=== PATIENT | female | born 1970 | race Caucasian/White ===

== ENCOUNTER 2024-03-24 13:07 | Outpatient (AMB) | payer MEDICARE, MEDICAID, SELFPAY ==
--- NOTE | 2024-03-24 13:13 | HO.SPINEOV ---
Intake Visit Reasons: Back pain Intake Note: Ms. Abelino Ozuna is here today c/o back pain that radiates to the right buttock. Hand Spring Former Required: Yes Hand Spring Former Name: Tablet Allergies oxycodone Allergy (Severe, Verified 04/01/24 13:20) Anaphylaxis Penicillins Adverse Reaction (Severe, Verified 04/01/24 13:20) rash Assessment & Plan Assessment & Plan (1) SI (sacroiliac) joint dysfunction: Code(s): M53.3 - Sacrococcygeal disorders, not elsewhere classified Category: Medical Plan Coreen is a pleasant 53 y/o female who is self referred to our practice after having an MRI of the lumbar spine completed at [facility]. She reports that she has low back pain with shooting pains into her bilateral lower extremities. She reports that her right side is much worse than her left. When describing her pain she states that originates somewhere near her low back shoots over her right posterior buttocks into her right groin and down the back side of right thigh. She describes a similar pain on the left side but to a lesser extent. She denies any numbness/tingling/burning/weakness associated with the pain. She reports this has been ongoing for the last 10 years and has not been able to find a solution for it. She is now to the point where she is in nearly constant pain. She takes [id number]-jgl-[id number] medications and gabapentin to help alleviate her pain. She has been to physical therapy multiple times in the past and found that it only exacerbates her pain. She states that her pain is worse with rising from a seated position or getting up out of a car. She has history of multiple childbirths but they were all C-sections. 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 Social hx: Patient does not smoke, reports no substance use. Medications: Cetirizine, Jardiance, Lantus, Levothyroxine, Lisinopril, rsouvastatin, Welbutrin, buspar, Klonopin, lidocaine patches, Ambien, metformin, Ozempic, Symbicort, aspirin, lidocaine, meclizine, sucralfate, gabapentin, Ativan. Allergies: NKDA Physical exam: The patient has 5/5 strength in her upper and lower extremities, although does elicit pain to full strength testing with right-sided iliopsoas engagement. She walks with a somewhat antalgic gait favoring her left side. She rises from a seated position with the assistance of a chair. She declines any sensational changes. Her reflexes are absent in the bilateral patella. 1+ hypoactive and bilateral Achilles. 2+ intact elsewhere. (+) right-sided Yusuf finger test, (+) right-sided Marilyn's. (-) Bilateral straight leg raise, (-) clonus, (-) Peguero's. Imaging review: MRI of the lumbar spine completed at [facility] is generally unremarkable. There is some facet arthropathy at L4-5, but there is no significant central canal or foraminal stenosis noted throughout the lumbar spine. The disc heights are well maintained aside from some very minimal posterior disc bulging noted at L4-5 and L5-S1. Impression: Coreen is a pleasant 53-year-old female comes in today with a chief complaint of low back pain and shooting pains into her bilateral lower extremities, right side worse than left. She states the pain shoots from her posterior buttocks area into her groin and posterior thigh. Her symptoms are most consistent with a right-sided SI joint pathology. I would like her evaluated for right-sided SI joint diagnostic injections. If these provide good relief we can identify this as the primary pain generator and consider a surgical intervention to help solve her problem. If we follow up with her after the diagnostic SI joint injection and she was not provided relief from this for any period of time, then I may consider sending her for an EMG of her lower extremities to rule out peripheral neuropathy, and may refer her to our colleagues in Orthopedics to ensure she does not have a issue with her hips. Thank you for allowing us to care for your patient. The total time spent with this visit with this patient was 45 minutes reviewing history, physical exam, MRI imaging review, and implementation of treatment plan or further diagnostic testing. Jose Negro MD,PhD [facility] Orders: Referrals Pain Management Referral M53.3 - Sacrococcygeal disorders, not elsewhere classified Coding Level of Care Code New Pt Level 4 (70866) Diagnoses SI (sacroiliac) joint dysfunction M53.3
== END 2024-03-24 13:59 | disposition home or self-care (01) ==
PROVIDERS: PCP Physician Assistant; Visit Provider Physician Assistant
DX: M53.3 Sacrococcygeal disorders, not elsewhere classified (principal)
CPT/HCPCS: 99204

== ENCOUNTER → 2024-03-24 13:07 | Outpatient (BNVA) | payer MEDICARE, MEDICAID, SELFPAY | PROVIDERS: PCP Physician Assistant; Visit Provider Physician Assistant | DX: M53.3 Sacrococcygeal disorders, not elsewhere classified (principal) | CPT/HCPCS: 99202 ==

== ENCOUNTER 2024-04-01 13:13 | Outpatient (REF) | payer MEDICARE, MEDICAID, SELFPAY ==
--- NOTE | ~2024-04-01 | XR_ITS ---
EXAMINATION: XR BILATERAL HIPS WITH AP PELVIS CLINICAL INFORMATION: Sacrococcygeal disorders not elsewhere classified. COMPARISON: None available. TECHNIQUE: AP view of the pelvis as well as 2 views of each hip. FINDINGS: Degenerative changes in the imaged lower lumbar spine. Moderate degenerative changes in the bilateral sacroiliac joints. [id number] degenerative changes in bilateral hips with joint space narrowing and lateral acetabular hypertrophic change. Sclerotic focus overlying the right humeral head may represent a bony lesion such as a bone island versus less likely soft tissue calcification. XR/XR hip BI w PEL1V IMPRESSION: 1. [id number]-[id number] degenerative changes in bilateral hips. 2. Moderate degenerative changes in the bilateral sacroiliac joints. 3. Degenerative changes in the imaged lower lumbar spine.
== END 2024-04-01 13:14 | disposition home or self-care (01) ==
LOC: HO.XRAY 13:13
PROVIDERS: PCP Physician Assistant; Visit Provider Nurse Practitioner Family
DX: M53.3 Sacrococcygeal disorders, not elsewhere classified (principal); M25.551 Pain in right hip; M46.1 Sacroiliitis, not elsewhere classified; M47.817 Spondylosis without myelopathy or radiculopathy, lumbosacral region; M51.36 Other intervertebral disc degeneration, lumbar region
CPT/HCPCS: 73521; 99202

== ENCOUNTER 2024-04-01 13:13 | Outpatient (AMB) | payer MEDICARE, MEDICAID, SELFPAY ==
--- NOTE | 2024-04-01 13:17 | A.OFFVIS_ITS ---
Vital Signs 04/01/24 13:19 Height 5 ft 7 in Weight 207 lb BMI 32.4 BP 123/59 L Blood Pressure Location Rt brachial Position Sitting Respiration 16 Pulse 83 Pulse Source Pulse Oximeter Pulse Oximetry (%) 96 Oxygen Delivery Method Room Air Intake Visit Reasons: Sacrococcygeal disorders, not elsewhere classified Allergies oxycodone Allergy (Severe, Verified 04/01/24 13:20) Anaphylaxis Penicillins Adverse Reaction (Severe, Verified 04/01/24 13:20) rash Medication List - Last Reconciled 04/01/24 by Regina Dhillon LPN albuterol sulfate 90 mcg/actuation (Ventolin HFA) 2 puffs inhalation Q4-6H PRN buspirone 10 mg PO BID cetirizine 10 mg PO DAILY clonazepam 1 mg PO BEDTIME PRN empagliflozin (Jardiance) 10 mg PO DAILY estradiol 1 patch transdermal QWEEK famotidine 40 mg PO DAILY ferrous sulfate 325 mg PO QAM fluticasone furoate 100 mcg/actuation (Arnuity Ellipta) 1 inh inhalation DAILY gabapentin 100 mg PO TID insulin glargine (Lantus Solostar U-100 Insulin) 10 units subcut QPM insulin glargine-yfgn (Semglee (insulin glargine-yfgn) Pen) 10 units subcut DAILY levothyroxine 125 mcg PO DAILY lidocaine 5% 1 patch topical DAILY lisinopril 40 mg PO DAILY lorazepam 1 mg PO BID meclizine 25 mg PO BID PRN metformin 1,000 mg PO BID nabumetone (Relafen DS) 500 mg PO DAILY naltrexone 25 mg PO DAILY pantoprazole 40 mg PO DAILY rosuvastatin 40 mg PO DAILY semaglutide (Ozempic) mg subcut zolpidem 10 mg PO BEDTIME PRN HPI Comments Details: Patient is a 53 years old female presents today for low back pain with bilateral radiculopathy. She was referred to our office by [facility] for diagnostic right sacroiliac joint injection. Denies any recent trauma, injury or falls. Back pain is axial and also extends to sacral and buttocks areas and into her groin and posterior thighs, worse on the right. She also experiences significant right groin pain with internal and external hip rotations and weight bearing. She ambulates with antalgic gait with limping, favoring left side. Pain is worse with prolonged sitting, driving, changing positions from sitting to standing, walking, climbing stairs and most movements. She also reports moderate pain with lumbar extension and axial rotations. Patient utilizes cane with ambulation. She completed multiple courses of physical therapy, has been taking OTC medications, gabapentin, lidocaine patches with continued symptoms. Reports PT exacerbated her pain symptoms. Pain has been present for over 10 years and has been resistant to conservative treatments. Pain affects her daily activities and functioning, mobility, sleep, mood and quality of life. She completed lumbar spine MRI report at [facility] and had Neurosurgical evaluation by [facility] with no surgical recommendations at this time. Patient is interested to undergo bilateral diagnostic sacroiliac joint injections as next steps. Denies any fever, chills, abdominal pain, chest pain, headache, dizziness, numbness or tingling, weakness, foot drop, bladder or bowel dysfunction or saddle anesthesia. [facility] Medical History (Updated 04/01/24 @ 14:14 by WINSTON Wood) GERD (gastroesophageal reflux disease) Fibromyalgia Hypertension Asthma T2DM (type 2 diabetes mellitus) Uterine fibroid Hypothyroidism JUAREZ (obstructive sleep apnea) Lipoma of back Diverticulitis PTSD (post-traumatic stress disorder) Review of Systems Const All systems reviewed & are unremarkable except as noted in HPI and below Physical Exam Vital Signs: Last Vital Signs Pulse 83 04/01/24 13:19 Resp 16 04/01/24 13:19 BP 123/59 L 04/01/24 13:19 Pulse Ox 96 04/01/24 13:19 Oxygen Delivery Method Room Air 04/01/24 13:19 BMI result Body Mass Index 32.4 General: Appears afebrile. Alert and oriented. Mood and affect appropriate. Follows and participates in conversation appropriately. Respiratory effort is unlabored. No cough. Able to transition from sit to stand unassisted. Ambulates with normal heel strike and toe off on the left, reports imbalance and unsteadiness on the right due to pain. General: Yes no CVA tenderness Back/Spine/Pelvis Other: Patient is able to walk and stand on heels and tip toes with moderate difficulty on the right otherwise demonstrating good motor tone. No limping. Can flex forward to 65-70 degrees and extend to 5-10 degrees before experiencing lumbar pain. Lumbar extension reproduced moderate pain. Demonstrates 5/5 left and 4/5 right due to pain strength of quadriceps bilaterally as well as flexion/dorsiflexion of bilateral feet against resistance. 2+ pedal pulses bilaterally. Seated straight leg rise with dorsiflexion negative bilaterally. +2 patellar and achilles reflexes bilaterally. Facet loading test positive bilaterally. Yusuf sign, Chalino?s, Gaenslen, Pelvic compression and Stinchf ield tests are positive bilaterally, right>left. Mild to moderate groin pain with I/E left hip rotations. Valsalva maneuver negative. Back: no CVA tenderness Cervical Spine: cervical ROM normal, cervical muscular tenderness and No Cervical spine tenderness Thoracic/Lumbar Spine: thoracic and lumbar spine normal to inspection, No Thoracic/lumbar spine scar(s), Lasegue's sign negative, straight leg raise negative bilaterally, pain with thoraco-lumbar ROM, paraspinal muscle tenderness bilaterally, thoraco-lumbar ROM limited, No thoracic spinal tenderness and lumbar spinal tenderness (L4-S1) Pelvis: buttock tenderness bilaterally Sacroiliac joints: bilaterally tender to palpation Results Reviewed Results Reviewed: Per [facility] notes: MRI of the lumbar spine completed at [facility] is generally unremarkable. There is some facet arthropathy at L4-5, but there is no significant central canal or foraminal stenosis noted throughout the lumbar spine. The disc heights are well maintained aside from some very minimal posterior disc bulging noted at L4-5 and L5-S1. Assessment & Plan Assessment & Plan (1) SI (sacroiliac) joint dysfunction: Code(s): M53.3 - Sacrococcygeal disorders, not elsewhere classified Category: Medical (2) Right hip pain: Code(s): M25.551 - Pain in right hip Category: Medical (3) Sacroiliitis: Code(s): M46.1 - Sacroiliitis, not elsewhere classified Category: Medical (4) Lumbosacral spondylosis: Code(s): M47.817 - Spondylosis without myelopathy or radiculopathy, lumbosacral region Category: Medical (5) Lumbar degenerative disc disease: Code(s): M51.36 - Other intervertebral disc degeneration, lumbar region Category: Medical Plan Schedule Bilateral Diagnostic Sacroiliac Joint Injections with local and fluoroscopy. Expectations, risks and benefits were reviewed. Patient is aware she will be contacted to schedule this procedure. We will also obtain bilateral hip with pelvic views imaging to assess degree of arthritis in SI joints and right hip. Continue daily physical activity as tolerated, adequate hydration, weight optimization, good posture and avoid pain producing activities. All questions were answered and the patient is in agreement of plan. Follow-up a fter injections and sooner as needed. Orders: Orders XR hip BI w PEL1V Today M25.551 - Pain in right hip, M46.1 - Sacroiliitis, not elsewhere classified, M47.817 - Spondylosis without myelopathy or radiculopathy, lumbosacral region, M53.3 - Sacrococcygeal disorders, not elsewhere classified Coding Level of Care Code New Pt Level 4 (69314) Diagnoses SI (sacroiliac) joint dysfunction M53.3 Right hip pain M25.551 Sacroiliitis M46.1 Lumbosacral spondylosis M47.817 Lumbar degenerative disc disease M51.36
[2024-04-01 13:19] VITALS: BP 123/59; PULSE 83; RESP 16; O2SAT 96; BMI 32.4
== END 2024-04-01 13:54 | disposition home or self-care (01) ==
PROVIDERS: PCP Physician Assistant; Visit Provider Nurse Practitioner Family
DX: M53.3 Sacrococcygeal disorders, not elsewhere classified (principal); M25.551 Pain in right hip; M46.1 Sacroiliitis, not elsewhere classified; M47.817 Spondylosis without myelopathy or radiculopathy, lumbosacral region; M51.36 Other intervertebral disc degeneration, lumbar region
CPT/HCPCS: 99204

== ENCOUNTER 2024-08-09 06:16 | Outpatient (REF) | payer MEDICARE, MEDICAID, SELFPAY | END 2024-08-09 06:17 | disposition home or self-care (01) | LOC: CF 06:16 | PROVIDERS: Visit Provider Anesthesiology | DX: M53.3 Sacrococcygeal disorders, not elsewhere classified (principal); M46.1 Sacroiliitis, not elsewhere classified | CPT/HCPCS: 27096; J2003; J2795; Q9967 ==

== ENCOUNTER 2024-08-09 12:16 | Outpatient (AMB) | payer MEDICARE, MEDICAID, SELFPAY ==
--- NOTE | 2024-08-09 12:34 | A.OFFVIS_ITS ---
Vital Signs 08/09/24 13:25 08/09/24 13:25 Height 5 ft 7 in 5 ft 7 in Weight 207 lb 207 lb BMI 32.4 32.4 BP 118/72 130/74 Blood Pressure Location Lt brachial Rt brachial Position Sitting Sitting Respiration 16 16 Pulse 75 75 Pulse Source Pulse Oximeter Pulse Oximeter Pulse Oximetry (%) 98 98 Oxygen Delivery Method Room Air Room Air Comment pre-op post-op Intake Visit Reasons: BILATERAL DIAGNOSTIC SIJ INJECTIONS Allergies oxycodone Allergy (Severe, Verified 08/09/24 13:26) Anaphylaxis Penicillins Adverse Reaction (Severe, Verified 08/09/24 13:26) rash [facility] Medical History (Updated 04/01/24 @ 14:14 by WINSTON Wood) GERD (gastroesophageal reflux disease) Fibromyalgia Hypertension Asthma T2DM (type 2 diabetes mellitus) Uterine fibroid Hypothyroidism JUAREZ (obstructive sleep apnea) Lipoma of back Diverticulitis PTSD (post-traumatic stress disorder) Physical Exam Vital Signs: Last Vital Signs Pulse 75 08/09/24 13:25 Resp 16 08/09/24 13:25 BP 130/74 08/09/24 13:25 Pulse Ox 98 08/09/24 13:25 Oxygen Delivery Method Room Air 08/09/24 13:25 BMI result Body Mass Index 32.4 Assessment & Plan Assessment & Plan (1) Sacroiliitis: Code(s): M46.1 - Sacroiliitis, not elsewhere classified Category: Medical (2) SI (sacroiliac) joint dysfunction: Code(s): M53.3 - Sacrococcygeal disorders, not elsewhere classified Category: Medical Plan Bilateral diagnostic sacroiliac joint injection Informed consent was explained thoroughly to the patient.? All questions about benefits and risks for the procedure were answered. Patient came to the operating room and was positioned prone on the operating table with the pillow under the abdomen. The lower back and buttocks of the patient were prepped with ChloraPrep prepped and draped with sterile utility towels.? Sterilely draped C-arm was brought over the operating field and sq picture of patient's pelvis was demonstrated on the screen.? For the right joint tilting C-arm contralateral to the site of the joint the most posterior portion of the joints was superimposed with anterior silhouette of the joint.? Skin was injected in the projection of the joint slightly medial to the location of the joint with 25 gauge 1/2 inch needle using local lidocaine 2% . After that 22 gauge 3 and 1/2 inch needle was driven to the right joint in tunnel vision fashion.? When needle entered the joint capsule injection of the contrast was performed demonstrating intra-articular and minimally periarticular spread of the contrast.? After that 4 cc. of ropivacaine 0.5% was injected in the joint. After that procedure was repeated on the left side in mirroring fashion. Same dose of ropivacaine was injected into the joint. Upon completion of the injections the needle was removed and Band-Aid was applied.? Upon completion of the injection patient was taken outside of the operating room to the recovery room where recovered uneventfully. Orders: Orders FL guidance in treatment room Today M46.1 - Sacroiliitis, not elsewhere classified Coding Level of Care Code Procedure Only Diagnoses Sacroiliitis M46.1 SI (sacroiliac) joint dysfunction M53.3
[2024-08-09 13:25] VITALS: BP 118/72; BP 130/74; PULSE 75; RESP 16; O2SAT 98; BMI 32.4
== END 2024-08-09 13:38 | disposition home or self-care (01) ==
LOC: HO.PMCPRC 12:17
PROVIDERS: PCP Physician Assistant; Visit Provider Anesthesiology
DX: M46.1 Sacroiliitis, not elsewhere classified (principal); M53.3 Sacrococcygeal disorders, not elsewhere classified
CPT/HCPCS: 27096

== ENCOUNTER 2024-08-16 13:01 | Outpatient (AMB) | payer MEDICARE, MEDICAID, SELFPAY ==
--- NOTE | 2024-08-16 13:02 | MHC.OFFVIS ---
Vital Signs 08/16/24 13:05 Height 5 ft 7 in Weight 209 lb BMI 32.7 BP 128/65 Blood Pressure Location Lt brachial Position Sitting Pulse 84 Pulse Source Pulse Oximeter Pulse Oximetry (%) 98 Oxygen Delivery Method Room Air Intake Visit Reasons: BILATERAL DIAGNOSTIC SIJ INJECTIONS/xray results Intake Note: Pain today 06/14 Nurse Sexual Assault Required: No Accompanied by: Self / Same As Patient Allergies oxycodone Allergy (Severe, Verified 08/16/24 13:05) Anaphylaxis Penicillins Adverse Reaction (Severe, Verified 08/16/24 13:05) rash HPI Comments Details: Patient presents today to assess response to bilateral diagnostic SIJ injections on 08/09/[address] Paez. Patient reports 0 pain relief since procedure and no significant improvement in her daily activities and functioning, mobility or sleep. Patient continues to endorse right sided radiculopathy symptoms with back pain radiating into her right buttock and into her right buttock, lateral hip and into right anterior and lateral thigh and numbness and tingling in her right barr. Back pain limits her walking capacity and daily activities as well as negatively affects sleep, mood and social interactions. Occasionally, she has same symptoms on her left side. Denies any fever or chills, abdominal or groin pain, foot drop, bladder or bowel dysfunction or saddle anesthesia. Reports RLE intermittent weakness due to pain, uses cane with ambulation. Past Procedures: 08/09/24: Bilateral Diagnostic SIJ injections- 0% pain relief PRIOR: Patient is a 53 years old female presents today for low back pain with bilateral radiculopathy. She was referred to our office by [facility] [place] for diagnostic right sacroiliac joint injection. Denies any recent trauma, injury or falls. Back pain is axial and also extends to sacral and buttocks areas and into her groin and posterior thighs, worse on the right. She also experiences significant right groin pain with internal and external hip rotations and weight bearing. She ambulates with antalgic gait with limping, favoring left side. Pain is worse with prolonged sitting, driving, changing positions from sitting to standing, walking, climbing stairs and most movements. She also reports moderate pain with lumbar extension and axial rotations. Patient utilizes cane with ambulation. She completed multiple courses of physical therapy, has been taking OTC medications, gabapentin, lidocaine patches with continued symptoms. Reports PT exacerbated her pain symptoms. Pain has been present for over 10 years and has been resistant to conservative treatments. Pain affects her daily activities and functioning, mobility, sleep, mood and quality of life. She completed lumbar spine MRI report at [facility] and had Neurosurgical evaluation by [facility] [place] with no surgical recommendations at this time. Patient is interested to undergo bilateral diagnostic sacroiliac joint injections as next steps. Denies any fever, chills, abdominal pain, chest pain, headache, dizziness, numbness or tingling, weakness, foot drop, bladder or bowel dysfunction or saddle anesthesia. [facility] Medical History GERD (gastroesophageal reflux disease) Fibromyalgia Hypertension Asthma T2DM (type 2 diabetes mellitus) Uterine fibroid Hypothyroidism JUAREZ (obstructive sleep apnea) Lipoma of back Diverticulitis PTSD (post-traumatic stress disorder) Review of Systems Const All systems reviewed & are unremarkable except as noted in HPI and below Physical Exam Vital Signs: Last Vital Signs Pulse 84 08/16/24 13:05 BP 128/65 08/16/24 13:05 Pulse Ox 98 08/16/24 13:05 Oxygen Delivery Method Room Air 08/16/24 13:05 BMI result Body Mass Index 32.7 General: Appears afebrile. Alert and oriented. Mood and affect appropriate. Follows and participates in conversation appropriately. Respiratory effort is unlabored. No cough. Able to transition from sit to stand unassisted. Ambulates with normal heel strike and toe off on the left, reports imbalance and unsteadiness on the right due to pain. General: Yes no CVA tenderness Back/Spine/Pelvis Other: Limited lumbar ROM due to pain. Antalgic gait with mild limping. Can flex forward to 65-70 degrees and extend to 5-10 degrees before experiencing lumbar pain. Lumbar extension and flexion forward reproduces moderate pain. Demonstrates 5/5 left and 4/5 right due to pain strength of quadriceps bilaterally as well as flexion/dorsiflexion of bilateral feet against resistance. 2+ pedal pulses bilaterally. Seated straight leg rise with dorsiflexion negative bilaterally. +1 patellar and achilles reflexes bilaterally. Facet loading test positive bilaterally. Yusuf sign, Chalino?s, Gaenslen, Pelvic compression and Stinchfield tests are positive bilaterally, right>left. Mild to moderate groin pain with I/E hip rotations, right>left. Valsalva maneuver is negative. Back: no CVA tenderness Cervical Spine: cervical ROM normal, cervical muscular tenderness and No Cervical spine tenderness Thoracic/Lumbar Spine: thoracic and lumbar spine normal to inspection, No Thoracic/lumbar spine scar(s), Lasegue's sign negative, straight leg raise negative bilaterally, pain with thoraco-lumbar ROM, paraspinal muscle tenderness bilaterally, thoraco-lumbar ROM limited, No thoracic spinal tenderness and lumbar spinal tenderness (L4-S1) Pelvis: buttock tenderness bilaterally Sacroiliac joints: bilaterally tender to palpation Results Reviewed Results Reviewed: XR BILATERAL HIPS WITH AP PELVIS 04/01/24 FINDINGS: Degenerative changes in the imaged lower lumbar spine. Moderate degenerative changes in the bilateral sacroiliac joints. Yuzc-[id number]-[id number] degenerative changes in bilateral hips with joint space narrowing and lateral acetabular hypertrophic change. Sclerotic focus overlying the right humeral head may represent a bony lesion such as a bone island versus less likely soft tissue calcification. IMPRESSION: 1. Gvhs-if-uzljqibe degenerative changes in bilateral hips. 2. Moderate degenerative changes in the bilateral sacroiliac joints. 3. Degenerative changes in the imaged lower lumbar spine. Assessment & Plan Assessment & Plan (1) SI (sacroiliac) joint dysfunction: Code(s): M53.3 - Sacrococcygeal disorders, not elsewhere classified Category: Medical (2) Sacroiliitis: Code(s): M46.1 - Sacroiliitis, not elsewhere classified Category: Medical (3) Lumbosacral spondylosis: Code(s): M47.817 - Spondylosis without myelopathy or radiculopathy, lumbosacral region Category: Medical (4) Lumbar degenerative disc disease: Code(s): M51.36 - Other intervertebral disc degeneration, lumbar region Category: Medical (5) Lumbar radiculopathy: Code(s): M54.16 - Radiculopathy, lumbar region Category: Medical (6) Right hip pain: Code(s): M25.551 - Pain in right hip Category: Medical Plan Patient is one week status post bilateral diagnostic SI joint injections with no pain relief. She continues to endorse right sided radiculopathy, SIJ and hip pain. Patient would like to undergo Right L4-L5 TFESI with local and fluoroscopy to address lumbar radicular symptoms. Expectations, risks and benefits were reviewed. Patient is aware she will be contacted to schedule this procedure. If no pain relief, will consider right intra-articular hip injection. All questions were answered and the patient is in agreement of plan. Follow-up after injections and sooner as needed. Coding Level of Care Code Est Pt Level 4 (43471) Complex EM visit Add On G2211 Diagnoses SI (sacroiliac) joint dysfunction M53.3 Sacroiliitis M46.1 Lumbosacral spondylosis M47.817 Lumbar degenerative disc disease M51.36 Lumbar radiculopathy M54.16 Right hip pain M25.551
[2024-08-16 13:05] VITALS: BP 128/65; PULSE 84; O2SAT 98; BMI 32.7
== END 2024-08-16 13:24 | disposition home or self-care (01) ==
PROVIDERS: PCP Physician Assistant; Visit Provider Nurse Practitioner Family
DX: M53.3 Sacrococcygeal disorders, not elsewhere classified (principal); M46.1 Sacroiliitis, not elsewhere classified; M47.817 Spondylosis without myelopathy or radiculopathy, lumbosacral region; M51.369 Other intervertebral disc degeneration, lumbar region without mention of lumbar back pain or lower extremity pain; M54.16 Radiculopathy, lumbar region; M25.551 Pain in right hip
CPT/HCPCS: 99214; G2211

== ENCOUNTER → 2024-08-16 13:01 | Outpatient (BNVA) | payer MEDICARE, MEDICAID, SELFPAY | PROVIDERS: PCP Physician Assistant; Visit Provider Nurse Practitioner Family | DX: M53.3 Sacrococcygeal disorders, not elsewhere classified (principal); M46.1 Sacroiliitis, not elsewhere classified; M47.817 Spondylosis without myelopathy or radiculopathy, lumbosacral region; M51.360 Other intervertebral disc degeneration, lumbar region with discogenic back pain only; M54.16 Radiculopathy, lumbar region; M25.551 Pain in right hip | CPT/HCPCS: 99212 ==

== ENCOUNTER 2024-10-25 06:16 | Outpatient (REF) | payer MEDICARE, MEDICAID, SELFPAY ==
--- NOTE | ~2024-10-25 | FL_ITS ---
EXAMINATION: FL GUIDANCE ONLY HISTORY: M54.16 - Radiculopathy, lumbar region COMPARISON: None available. TECHNIQUE: Fluoroscopy time: 0.2 minutes. Cumulative Dose: 8.72 mGy. DAP: 0.151 uGy-m2 (microgray-meter squared). Images: 1. FINDINGS: A single image demonstrates a needle in the region of the right L4-5 facet joint. FL/FL guidance in treatment room IMPRESSION: Fluoroscopy during procedure. Please see procedure report for additional information. Electronically signed by: Elmer Schulz MD 10/25/2024 02:40 PM [facility]
== END 2024-10-25 06:17 | disposition home or self-care (01) ==
LOC: CF 06:16
PROVIDERS: Visit Provider Anesthesiology
DX: M54.16 Radiculopathy, lumbar region (principal)
CPT/HCPCS: 64483; J2003; J3301; Q9967

== ENCOUNTER 2024-10-25 10:23 | Outpatient (AMB) | payer MEDICARE, MEDICAID, SELFPAY ==
[2024-10-25 10:32] VITALS: BP 116/64; PULSE 84; RESP 16; O2SAT 97
--- NOTE | 2024-10-25 10:32 | A.OFFVIS_ITS ---
Vital Signs 10/25/24 10:32 10/25/24 10:53 BP 116/64 131/65 Blood Pressure Location Lt brachial Lt brachial Position Sitting Sitting Respiration 16 16 Pulse 84 86 Pulse Source Pulse Oximeter Pulse Oximeter Pulse Oximetry (%) 97 97 Oxygen Delivery Method Room Air Room Air Intake Visit Reasons: RIGHT L4, L5 TFESI Allergies oxycodone Allergy (Severe, Verified 10/25/24 10:33) Anaphylaxis Penicillins Adverse Reaction (Severe, Verified 10/25/24 10:33) rash Medication List - Last Reconciled 10/25/24 by Regina Dhillon LPN albuterol sulfate 90 mcg/actuation (Ventolin HFA) 2 puffs inhalation Q4-6H PRN aspirin mg PO bupropion HCl XL mg PO buspirone 10 mg PO BID cetirizine 10 mg PO DAILY clonazepam 1 mg PO BEDTIME PRN diclofenac sodium 1% topical empagliflozin (Jardiance) 10 mg PO DAILY estradiol 1 patch transdermal QWEEK famotidine 40 mg PO DAILY ferrous sulfate 325 mg PO QAM fluticasone furoate 100 mcg/actuation (Arnuity Ellipta) 1 inh inhalation DAILY gabapentin 100 mg PO TID insulin glargine (Lantus Solostar U-100 Insulin) 10 units subcut QPM insulin glargine-yfgn (Semglee (insulin glargine-yfgn) Pen) 10 units subcut DAILY levothyroxine 125 mcg PO DAILY lidocaine 5% 1 patch topical DAILY lisinopril 40 mg PO DAILY lorazepam 1 mg PO BID meclizine 25 mg PO BID PRN metformin 1,000 mg PO BID nabumetone (Relafen DS) 500 mg PO DAILY naltrexone 25 mg PO DAILY pantoprazole 40 mg PO DAILY rosuvastatin 40 mg PO DAILY semaglutide (Ozempic) mg subcut sucralfate PO zolpidem 10 mg PO BEDTIME PRN [facility] Medical History GERD (gastroesophageal reflux disease) Fibromyalgia Hypertension Asthma T2DM (type 2 diabetes mellitus) Uterine fibroid Hypothyroidism JUAREZ (obstructive sleep apnea) Lipoma of back Diverticulitis PTSD (post-traumatic stress disorder) Physical Exam Vital Signs: Last Vital Signs Pulse 86 10/25/24 10:53 Resp 16 10/25/24 10:53 BP 131/65 10/25/24 10:53 Pulse Ox 97 10/25/24 10:53 Oxygen Delivery Method Room Air 10/25/24 10:53 Assessment & Plan Assessment & Plan (1) Lumbar radiculopathy: Code(s): M54.16 - Radiculopathy, lumbar region Category: Medical Plan Transforaminal right L4-5 epidural steroid injection . Informed consent was thoroughly explained to the patient before the procedure.? The patient came to the operating room.? He was positioned prone on operating table with a pillow under his abdomen.? Time-out was performed delineating correct site and side of the procedure, nature of the injection, name and date of of the patient. The lower back of the patient was prepped with ChloraPrep and draped with sterile utility towels.? C-arm was brought over the operating field and sq picture of L4 was demonstrated on the screen.? The right side was chosen as the side of the injection.? Tilting machine ipsilateral to the right at the level of L4 1st the most prominent picture of the right pedicle was obtained on the screen.? 3 mm below the level of the lowest point of the pedicle projection to the skin small amount of lidocaine 1% 3-4 cc was injected to anesthetize the skin.? After that 5 in 22 gauge Quincke point needle was inserted through the skin wheal and was advanced toward the L4-5 foramina on anterior posterior , lateral and oblique views intermittently.? When needle reached appropriate positioned injection of the contrast was performed delineating epidural and perineural spread of the contrast. No intravascular no intra neuro and no intrathecal spread of the contrast was noted. After that injection of the 3 cc of lidocaine 1% mixed with Kenalog 40 mg was performed into the needle. Upon completion of the injection needle was removed sterile Band-Aid was applied. Patient tolerated the procedure well. Orders: Orders FL guidance in treatment room Today M54.16 - Radiculopathy, lumbar region Coding Level of Care Code Procedure Only Diagnoses Lumbar radiculopathy M54.16
[2024-10-25 10:53] VITALS: BP 131/65; PULSE 86; RESP 16; O2SAT 97
--- OUTSIDE RECORDS SUMMARY | 2024-10-25 11:40 | XMS_ITS | Encounter Summary ---
Author Organization [facility] Address [address] [place] [address] Care Team Providers Care Machine Accountant Name Role Phone Coy Adhikari Primary Care Provider [phone] Encounter Details Date Type Department Care Team (Latest Contact Info) Description 10/06/2024 Travel Social History Tobacco Use Types Packs/Day Years Used Date Smoking Tobacco: Former Smokeless Tobacco: Former Quit: 03/13/2011 Alcohol Use Standard Drinks/Week Comments No 0 (1 standard drink = 0.6 oz pur e alcohol) Social Connections Answer Date Recorded Connectedness 1 03/14/2024 Financial Resource Strain Answer Date R ecorded Financial Resource Strain 1 2023 Stress Answer Date Recorded Stress 1 03/14/2024 Physical Activity Answer Date Recorded Physical Activity 0 05/23/2019 Food Insecurity Answer Date Recorded Food 1 03/14/2024 Transportation Needs Answer Date Record ed Transportation 1 03/14/2024 Housing Stability Answer Date Recorded Housing 1 03/14/2024 Safety and Environment Answer Date Truman rded Safety 1 03/14/2024 Utilities Answer Date Recorded Utilities 1 03/14/2024 Employment Answer Date Recorded Stress 0 02/04/2022 Comments No Sex and Gender Information Value Date Recorded Sex Assigned at Female 01/20/2018 10:13 AM PDT Legal Sex Female 11:04 AM PST Gender Identity Female 01/20/2018 10:13 AM PDT Sexual Orientation Straight 01/20/2018 10 :13 AM PDT COVID-19 Exposure Response Date Recorded In the last 10 days, have yo u been in contact with someone who was confirmed or suspected to have Coronavirus/COVID-19? Unable to assess 10/06/2024 2:06 PM EST documented as of this encounter Plan of Treatment Upcoming Encounters Date Type Department Care Team (Late st Contact Info) Description 12/08/2024 2:00 PM EST / Visits [facility] [address] [place] [address] Ladonna Sousa PMHNP [address] [place] [address] Shanice Fajardo [address] [place] [address] documented as of this encounter Goals Goal Patient Goal Type Associated Problems Recent Progress Patient-Stated? Author Blood Pressure < 130/80 Blood Pressure HTN (hypertension) 124/78(2023 4:04 PM EDT) No Nicki Riley, PharmD HEMOGLOBIN A1C < 7.0 Result Component Diabetes mellitus ([facility]) 6.8( 3:16 PM EDT) No Nicki Riley, PharmD documented as of this encounter Visit Diagnoses Not on filedocumented in this encounter Additional Health Concerns Assessment Noted Time PHQ-9 Depression Total Score: 7 03/14/20 24 2:30 PM PDT documented as of this encounter Care Teams Machine Accountant Relationship Specialty Start Date End Date Coy Adhikari PA [address] [place] [address] PCP - General Internal Medicine 04/10/17 documented as of this encounter
--- OUTSIDE RECORDS SUMMARY | 2024-10-25 11:40 | XMS_ITS | Clinical Summary ---
Author Organization [facility] Address [address] [place] [address] Care Team Providers Care Business Account Specialist Name Role Phone Coy Adhikari Primary Care Provider [phone] Source Comments PLEASE NOTE, if this patient is a minor, it may be UNLAWFUL to discuss sensitive information that is contained in these records (such as FAMILY PLANNING, MENTAL HEALTH or SUBSTANCE ABUSE) with the minor patient's parent or other person without the patient's specific authorization.[facility] Allergies Active Allergy Reactions Criticality Noted Date Comments Oxycodone-Acetaminophen 03/05/2022 Other reaction(s): anaphylaxis, feels like throat is closing up, but no rash Penicillins Hives High 12/25/2015 Other reaction(s): rash Tolerated Ancef 2grams on 08/19/18 with no issues. 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 1 Each 2021 Active flash glucose scanning reader (FREESTYLE ALEXANDRA 2 READER) miscIndications:Insuli n dependent type 2 diabetes mellitus, uncontrolled 1 Device by miscellaneous route continuous 1 Each 2021 Active timoloL maleate (TIMOPTIC) 0.5 % ophthalmic solution 2021 Active nabumetone (RELAFEN) 500 mg tablet TAKE 1 TABLET BY MOUTH TWICE A DAY 45 Tablet 1 2021 Active naltrexone (DEPADE) 50 mg tabletIndications:Clas s 1 obesity due to excess calories with serious comorbidity and body mass index (BMI) of 33.0 to 33.9 in adult TAKE 1/2 TABLET BY MOUTH EVERY DAY 15 Tablet 1 2021 Active flash glucose sensor (FREESTYLE ALEXANDRA 2 SENSOR) kitIndications:Type 2 diabetes mellitus with hyperosmolarity without coma, with long-term current use of insulin ([facility]),Routine adult health maintenance USE DIRECTED ,,CHANGE EVERY 14 DAYS 2 Kit 11 2022 Active timolol (BETIMOL OPHT) Apply 1 Drop to eye 2021 Active barium sulfate (READI-CAT 2 ORAL) See Instructions, Dispense 2 bottles of 450 mL. Drink 1 bottle completely 3-4 hours prior to appointment. Drink 2nd bottle completely 1 hr prior to appointment., # 900 mL, 0 Refills, Maintenance, 05/28/23 12:00:00 EDT, [facility]/pharmacy #[id number], Partial fill... 2022 Active estradioL (CLIMARA) 0.1 mg/24 hr patch APPLY 1 PATCH TOPICALLY ONCE WEEKLY Active nystatin (MYCOSTATIN) 100,000 unit/gram powder Apply topically 2022 Active ferrous sulfate 325 mg (65 mg iron) tablet TAKE 1 TABLET BY MOUTH EVERY DAY WITH BREAKFAST 90 Tablet 3 2023 Active MISCELLANEOUS MEDICAL SUPPLY MISCIndications:Acute coccygeal pain Donut shaped cushion x99 years 5'9 206 lbs 1 Each 2023 Active budesonide-formoteroL (SYMBICORT) 80-4.5 mcg/actuation inhaler Inhale 2 Puffs into the lungs 2 (two) times daily 10.2 g 1 2023 Active VENTOLIN HFA 90 mcg/actuation inhalerIndications:Unc omplicated asthma, unspecified asthma severity, unspecified whether persistent INHALE 2 PUFFS INTO THE LUNGS EVERY 4 (FOUR) HOURS NEEDED FOR SHORTNESS OF BREATH OR WHEEZING 18 Each 3 2023 Active insulin glargine (LANTUS SOLOSTAR U-100 INSULIN) 100 unit/mL (3 mL) penIndications:Diabete s mellitus without complication ([facility]) INJECT 35 UNITS INTO THE SKIN DAILY 30 mL 2 2023 Active insulin glargine-yfgn (SEMGLEE,INSULIN GLARG-YFGN,PEN) 100 unit/mL (3 mL) inpnIndications:Type 2 diabetes mellitus without complications (HCC-CMS) INJECT 35 UNITS INTO THE SKIN DAILY 30 mL 2 2023 Active empagliflozin (JARDIANCE) 10 mg tabIndications:Type 2 diabetes mellitus without complications (HCC-CMS) Take 1 Tablet by mouth once daily 90 Tablet 1 2023 Active blood sugar diagnostic (FREESTYLE TEST) stripsIndications:Type 2 diabetes mellitus without complications ([facility]) as needed for high blood sugar Check glucose once daily 100 Each 5 2023 Active alcohol swabsIndications:Contr olled type 2 diabetes mellitus without complication, unspecified whether fdc insulin use ([facility]) APPLY TO AFFECTED AREA TWICE A DAY 200 Each 2 2023 Active cetirizine (ZYRTEC) 10 mg tabletIndications:Drake rgy, sequela Take 1 Tablet by mouth once daily 90 Tablet 1 2023 Active LORazepam (ATIVAN) 1 mg tabletIndications:Nasreen strophobia Take one tablet by mouth 30 minute - 1 hour prior to MRI. 2 Tablet 2023 Active ARNUITY ELLIPTA 100 mcg/actuation dsdvIndications:Uncomp licated asthma, unspecified asthma severity, unspecified whether persistent INHALE 1 PUFF INTO THE LUNGS DAILY 30 Each 2 2023 Active gabapentin (NEURONTIN) 100 mg capsule TAKE 1 CAPSULE BY MOUTH 3 TIMES A DAY NEEDED FOR PAIN 90 Capsule 2 2023 Active estradioL (CLIMARA) 0.1 mg/24 hr patch Apply 1 Patch topically 2022 Active OZEMPIC 0.25 mg or 0.5 mg (2 mg/3 mL) pen injector Inject 0.25 mg into the skin once a week 2022 Active metoclopramide (REGLAN) 10 mg tablet TAKE 1 TABLET BY MOUTH EVERY 6 HOURS NEEDED FOR NAUSEA AND VOMITING FOR 7 DAYS 2022 Active pen needle, diabetic (BD ULTRA-FINE SHORT PEN NEEDLE) 31 gauge x 02/17 ndleIndications:Diabet es mellitus without complication ([facility]) USE ONCE DAILY DIRECTED 100 Each 1 2023 Active mupirocin (BACTROBAN) 2 % ointmentIndications:Wo und dehiscence APLICA TOPICAMENTE AURELIO VECES AL ADAN 22 g 2023 Active levothyroxine 125 mcg tabletIndications:Acqu ired hypothyroidism TAKE 1 TABLET BY MOUTH IN THE MORNING BEFORE BREAKFAST, STOP LEVOTHYROXINE 150 MCG 90 Tablet 3 2023 Active pantoprazole (PROTONIX) 40 mg EC tabletIndications:Branden roesophageal reflux disease without esophagitis Take 1 Tablet by mouth once daily 90 Tablet 1 2023 Active cholecalciferol, vitamin D3, (VITAMIN D3) 1,250 mcg (50,000 unit) capsuleIndications:Fam ilial hypercholesterolemia Take 1 Capsule by mouth once a week 12 Capsule 1 2023 Active diclofenac sodium (VOLTAREN) 1 % gelIndications:Chronic pain of left knee APPLY TO AFFECTED AREA TWICE A DAY 300 g 2 2023 Active semaglutide (OZEMPIC) 1 mg/dose (4 mg/3 mL) pen injectorIndications:Ty pe 2 diabetes mellitus with hyperglycemia, with long-term current use of insulin ([facility]),Primary hypertension INJECT 1MG INTO THE SKIN ONCE A WEEK 9 mL 1 2023 Active semaglutide (OZEMPIC) 2 mg/dose (8 mg/3 mL) pen injectorIndications:Ty pe 2 diabetes mellitus with hyperglycemia, with long-term current use of insulin ([facility]),Severe obesity ([facility]) Inject 2 mg into the skin once a week 6 mL 2 2023 Active cyclobenzaprine (FLEXERIL) 5 mg tabletIndications:Fibr omyalgia TAKE 1 TABLET BY MOUTH THREE TIMES A DAY NEEDED FOR MUSCLE SPASM 60 Tablet 2023 Active sucralfate (CARAFATE) 1 gram tabletIndications:Acut e gastritis without hemorrhage, unspecified gastritis type TAKE 1 TABLET BY MOUTH EVERY DAY 90 Tablet 1 2023 Active clonazePAM (KLONOPIN) 1 mg tabletIndications:PTSD (post-traumatic stress disorder) Take 1 Tablet by mouth once daily as needed for anxiety 30 Tablet 2 2023 Active meclizine (ANTIVERT) 25 mg tablet TAKE 1 TABLET BY MOUTH TWICE A DAY NEEDED FOR NAUSEA AND DIZZINESS 60 Tablet 2 2023 Active metFORMIN (GLUCOPHAGE) 1,000 mg tabletIndications:Diab etes mellitus without complication ([facility]) TAKE 1 TABLET BY MOUTH TWICE A DAY WITH FOOD 180 Tablet 1 2023 Active famotidine (PEPCID) 40 mg tabletIndications:Branden roesophageal reflux disease with esophagitis, unspecified whether hemorrhage TAKE 1 TABLET BY MOUTH EVERY DAY 90 Tablet 1 2023 Active lidocaine (LIDODERM) 5 % patchIndications:Chron ic bilateral low back pain without sciatica PLACE 1 PATCH TRANSDERMALLY TO THE AFFECTED AREA FOR A MAXIMUM OF 12 HOURS, THEN REMOVE FOR 12 HOURS 30 Patch 2 2023 Active rosuvastatin (CRESTOR) 40 mg tabletIndications:Fami lial hypercholesterolemia TAKE 1 TABLET BY MOUTH EVERY DAY 90 Tablet 2023 Active lisinopriL 40 mg tabletIndications:Esse ntial hypertension TAKE 1 TABLET BY MOUTH EVERY DAY 90 Tablet 1 2023 Active buPROPion HCL (WELLBUTRIN XL) 300 mg 24 hr tabletIndications:Depr ession, unspecified depression type TAKE 1 TABLET BY MOUTH EVERY DAY IN THE MORNING 90 Tablet [address] tablet TAKE 1 TABLET BY MOUTH EVERY DAY 90 Tablet 2 2024 Active zolpidem (AMBIEN) 10 mg tabletIndications:Inso mnia, unspecified type Take 1 Tablet by mouth nightly at bedtime as needed for sleep (Use ONLY NEEDED for sleeplessness) 30 Tablet 2 2024 Active LINZESS 72 mcg capIndications:Constip ation, unspecified TAKE 1 CAPSULE BY MOUTH ONCE DAILY NEEDED FOR CONSTIPATION. 30 Capsule 1 2024 Active naproxen (NAPROSYN) 500 mg tabletIndications:Lumb ar spine pain,Bilateral hip pain TAKE 1 TABLET BY MOUTH 2 (TWO) TIMES DAILY NEEDED FOR OTHER REASON (PAIN, SWELLING) 30 Tablet 2024 Active aspirin [address] tablet TAKE 1 TABLET BY MOUTH EVERY DAY 90 Tablet 2 10/06 Discontinued lisinopriL 40 mg tabletIndications:Esse ntial hypertension Take 1 Tablet by mouth once daily 60 Tablet 2 10/02 Discontinued naproxen (NAPROSYN) 500 mg tabletIndications:Lumb ar spine pain,Bilateral hip pain Take 1 Tablet by mouth 2 (two) times daily as needed for other reason (pain, swelling) 30 Tablet 09/26 Discontinued buPROPion HCL (WELLBUTRIN XL) 300 mg 24 hr tabletIndications:Depr ession, unspecified depression type TAKE 1 TABLET BY MOUTH EVERY MORNING 90 Tablet 10/03 Discontinued lidocaine (LIDODERM) 5 % patchIndications:Chron ic bilateral low back pain without sciatica PLACE 1 PATCH TRANSDERMALLY TO THE AFFECTED AREA FOR A MAXIMUM OF 12 HOURS, THEN REMOVE FOR 12 HOURS 30 Patch 2 09/26 Discontinued zolpidem (AMBIEN) 10 mg tabletIndications:Inso mnia, unspecified type Take 1 Tablet by mouth nightly at bedtime as needed for sleep (Use ONLY NEEDED for sleeplessness) 30 Tablet 2 10/07 Discontinued( Reorder (E-Cancel Not Sent)) rosuvastatin (CRESTOR) 40 mg tabletIndications:Fami lial hypercholesterolemia TAKE 1 TABLET BY MOUTH EVERY DAY 90 Tablet 10/02 Discontinued LINZESS 72 mcg capIndications:Constip ation, unspecified TAKE 1 CAPSULE BY MOUTH ONCE DAILY NEEDED FOR CONSTIPATION 30 Capsule 1 10/12 Discontinued naproxen (NAPROSYN) 500 mg tabletIndications:Lumb ar spine pain,Bilateral hip pain TAKE 1 TABLET BY MOUTH 2 (TWO) TIMES DAILY NEEDED FOR OTHER REASON (PAIN, SWELLING) 30 Tablet 10/17 Discontinued Active Problems Problem Noted Date Diagnosed Date Anxiety 05/05/2024 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 Otherwise normal exam. No change since 02/27/18 Glaucoma 12/08/2016 Overview (12/08/2016): Sees eyesight and surgery Moderate glaucoma- stable. Cataract- monitor Diabetes mellitus ([facility]) 11/14/2016 Fibromyalgia 09/04/2016 Asthma 02/08/2016 HTN (hypertension) 12/25/2015 Overview (12/11/2022): Takes lisinopril 30mg daily Gastroesophageal reflux disease without esophagi tis 12/25/2015 Overview (02/24/2019): EGD done on 02-24-19- biopsies taken. Await for results. Takes prilosec 20mg Hypercholesterolemia 12/25/2015 Overview (03/05/2022): Takes crestor 40mg Takes asprin 81mg daily Hypothyroidism 12/25/2015 Overview (12/11/2022): Takes metformin 1000mg BID Last a1c 12/2015: 8.3%, ldl 185 Depression 12/25/2015 Overview (12/11/2022): [facility] Takes takes seroquel 400mg at night Bupropion 300mg/24hrs Severe obesity ([facility]) 12/25/2015 Overview (10/07/2023): Not motivated to lose weight Disease of thyroid gland 12/25/2015 Overview (12/11/2022): Takes Levothyroxine 150mcg daily Anemia 12/25/2015 Overview (12/25/2015): Iron Deficiency AnemiaTakes 325mg (65mg elemental iron) daily Arthralgia 12/25/2015 H/O vitamin D deficiency 12/25/2015 Insomnia 12/25/2015 Overview (12/25/2015): seroquel 400mg every night Resolved Problems Problem Noted Date Diagnosed Date Resolved Date Chest pain 05/05/2022 03/30/2023 Encounters Date Type Department Care Team Description 10/06/2024 2:00 PM EST / Visits [address] [phone] Ladonna Sousa, PMHNP Shanice Fajardo PTSD (post-traumatic stress disorder) (Primary Dx); Depression, unspecified depression type; Insomnia, unspecified type 10/06/2024 Travel from Last 3 Months Immunizations Name Administration Dates Next Due Flu, Preservative Free 06/23/2023,2021,07/05/2021,2019,07/12/2019,06/24/2017,12/05/2016 INFLUENZA, SEASONAL, INJECTABLE 07/14/2018 Influenza (FLUBLOK),recombinant,injectable,pres ervative Free 06/28/2024 PNEUMOCOCCAL CONJUGATE PCV 13 03/05/2022 PNEUMOCOCCAL CONJUGATE PCV 2 0 (Prevnar) 11/19/2022 TDAP 12/05/2016,03/26/2016 ZOSTER VACCINE, RECOMBINANT (SHINGRIX) 09/04/2021,07/05/2021 Social History Tobacco Use Types Packs/Day Years Used Date Smoking Tobacco: Former Smokeless Tobacco: Former Quit: 03/13/2011 Tobacco Cessation:Counseling Given: Not Answered Alcohol Use Standard Drinks/Week Comments No 0 [...] Unable to assess 10/06/2024 2:06 PM EST Last Filed Vital Signs Vital Sign Reading Time Taken Comments Blood Pressure 124/78 06/28/2024 4:04 PM EDT Pulse 89 06/28/2024 4:04 PM EDT Temperature 36.7 ??C (98 ??F) 06/28/2024 4:04 PM EDT Respiratory Rate 16 06/28/2024 4:04 PM EDT Oxygen Saturation 95% 05/05/2024 4:28 PM EDT Inhaled Oxygen Concentration - - Weight 93.4 kg (206 lb) 06/28/2024 4:04 PM EDT Height 175.3 cm (5' 9 ) 06/28/2024 4:04 PM EDT Body Mass Index 30.42 06/28/2024 4:04 PM EDT Plan of Treatment Upcoming Encounters Date Type Department Care Team (Late st Contact Info) Description 12/08/2024 2:00 PM EST / Visits [facility] [address] [place] [phone] Ladonna Sousa PMHNP [address] [place] [address] Shanice Fajardo [address] [place] [address] Health Maintenance Due Date Last Done Comments Dental FMX/Pano 1970 Dental Perio Charting 1970 HPV Screening 1970 Pap + HPV 1970 CT Colonography 01/01/2016 FIT/gFOBT 01/01/2016 Fecal DNA 01/01/2016 Flexible Sigmoidoscopy 01/01/2016 Pap Smear 01/06/2019 01/07/2016 (Rebecca ruiz by Outside Provider) [id number] ( season) 2024 Depression Monitoring 06/14/2024 03/14/2024 , 10/07/2023, 06/01/2023, Additional history exists Dental Prophy 09/05/2024 03/03/2024, 06/23/2022 Diabetes HbA1c 09/13/2024 03/14/2024, 10/05, 06/01/2023, Additional history exists Alcohol and Drug Screen 10/05/2024 03/14/20 24, 10/07/2023, 06/01/2023, Additional history exists Dental BW 03/05/2025 03/03/2024, 06/23/2022 Dental Examination 03/05/2025 03/03/2024, 06/23/2022 Diabetes Foot Exam 03/14/2025 03/14/2024, 0 11/19/2022, 10/07/2021, Additional history exists Diabetes Microalbumin (w/Creatinine) 03/14/2025 03/14/2024, 09/11/2016 Lipid Screening 03/14/2025 03/14/2024, 10/05, 09/16/2022, Additional history exists Medicare Annual Wellness Visit 03/14/2025 0 03/14/2024, 02/04/2022, 05/23/2019, Additional history exists Serum Creatinine 03/14/2025 03/14/2024, 02/2023, 09/16/2022, Additional history exists TSH Monitoring 05/10/2025 05/10/2024, 03/05, 06/09/2023, Additional history exists Retinopathy Screening 06/09/2025 06/09/2024 , 08/17/2023, 09/17/2022, Additional history exists Breast Cancer Screening (Mammogram) 07/12/2025 07/12/2024, 07/10/2023, 07/07/2022, Additional history exists Tobacco Screening 10/03/2025 10/03/2024, , 02/04/2022, Additional history exists Imm-DTaP/Tdap/Td (3 - Td or Tdap) 12/05/2026 12/05/2016, 12/05/2016, 03/26/2016 Colonoscopy 06/25/2031 06/25/2021 Colorectal Cancer Screening 06/25/2031 HIV Screening Completed 07/08/2021 Hepatitis C Screening Completed 07/08/2021, 020 Imm-Zoster, Recombinant Completed 09/04/2021, 07/05 Imm-Pneumococcal Completed 11/19/2022, 03/05/2022 Imm-Influenza Completed 06/28/2024, 06/05, 06/26/2022, Additional history exists Cervical Ablation/Cold-Knife Conization Discontinued Cervical Cancer Screening Discontinued Cervical Cryotherapy Discontinued Colposcopy Discontinued Endometrial Biopsy Discontinued Excision/Leep Discontinued HPV Genotyping Discontinued Vaginal Pap Discontinued Vulvoscopy Discontinued Goals Goal Patient Goal Type Associated Problems Recent Progress Patient-Stated? Author Blood Pressure < 130/80 Blood Pressure HTN (hypertension) 124/78(2023 4:04 PM EDT) No Nicki Riley, PharmD HEMOGLOBIN A1C < 7.0 Result Component Diabetes mellitus ([facility]) 6.8( 3:16 PM EDT) No Nicki Riley, PharmD Procedures Procedure Name Priority Date/Time Associated Diagnosis Comments HEALTH HISTORY SCANNED DOCUMENT 10/18/2024 3:00 AM EST OTHER ORDERS SCANNED DOCUMENT 09/23/2024 3:00 AM EST REFERRAL SCANNED DOCUMENT 08/16/2024 3:00 AM EST REFERRAL SCANNED DOCUMENT 08/09/2024 3:00 AM EST REFERRAL FOR MAMMOGRAM Routine 07/12/2024 3:00 AM EDT Encounter for screening mammogram for malignant neoplasm of breast EYE EXAM 06/09/2024 3:00 AM EDT TSH W/RFLX FREE T4 Routine 05/10/2024 1: 19 PM EDT Acquired hypothyroidism COMPREHENSIVE METABOLIC PANEL Routine 03/14/2024 3:16 PM EDT Annual physical exam Screening due LIPID PANEL Routine 03/14/2024 3:16 PM EDT Diabetes mellitus without complication ([facility]) Type 2 diabetes mellitus without complications ([facility]CC-CMS) Annual physical exam Screening due MICROALBUMIN/CREATINI NE RATIO, URINE, RANDOM Routine 03/14/2024 3:16 PM EDT Diabetes mellitus without complication ([facility]CC-CMS) Type 2 diabetes mellitus without complications ([facility]) HGBA1C W/MPG Routine 03/14/2024 3:16 PM EDT Diabetes mellitus without complication ([facility]CC-CMS) Type 2 diabetes mellitus without complications ([facility]-CMS) Annual physical exam Screening due BITEWINGS - FOUR RADIOGRAPHIC IMAGES Routine 03/03/2024 4:20 PM EDT Encounter for dental examination and cleaning without abnormal findings PROPHYLAXIS - ADULT Routine 03/03/2024 4 :20 PM EDT Encounter for dental examination and cleaning without abnormal findings PERIODIC ORAL EVALUATION ESTABLISHED PATIENT Routine 03/03/2024 4:20 PM EDT Encounter for dental examination and cleaning without abnormal findings HIV 1/2 AG & AB W/RFLX (4TH GEN) Routine 07/08/2021 10:28 AM EDT Insulin dependent type 2 diabetes mellitus, uncontrolled (HCC-CMS) HEPATITIS C AB W/RFLX HCV RNA, QT, RT PCR Routine 07/08/2021 10:28 AM EDT Insulin dependent type 2 diabetes mellitus, uncontrolled ([facility]) Other problems related to lifestyle HISTORIC COLONOSCOPY 06/25/2021 12:00 AM EDT from Last 3 Months or Most Recently Relevant to Health Maintenance Results * HEALTH HISTORY SCANNED DOCUMENT (10/18/2024 3:00 AM EST) 10/18/2024 3:00 AM EST [facility] Provider Default SCAN OTHER ORDERS Final Re sult * OTHER ORDERS SCANNED DOCUMENT (09/23/2024 3:00 AM EST) 09/23/2024 3:00 AM EST Coy HENSON SCAN OTHER ORDERS Final Result * REFERRAL SCANNED DOCUMENT (08/16/2024 3:00 AM EST) Only the most recent of2 resultswithin the time period is included. 08/16/2024 3:00 AM EST us Coy HENSON SCAN REFERRAL Final Result * REFERRAL FOR MAMMOGRAM (07/12/2024 3:00 AM EDT) 07/12/2024 3:00 AM EDT us Coy HENSON IMG RFL MAMMO Final Result * EYE EXAM (06/09/2024 3:00 AM EDT) 06/09/2024 3:00 AM EDT us Coy HENSON OTHER Edited Result - Final * TSH W/RFLX FREE T4 (05/10/2024 1:19 PM EDT) TSH W/REFLEX TO FT4 1.05 0.40 - 4.50 mIU/L [facility] Comment: ?Reference Range ?> or = 20 Years ??0.40-4.50 ? Ranges ?First trimester ?0.26-2.66 ?Second trimester ?? 0.55-2.73 ?Third trimester ?0.43-2.91 Blood Blood / Unknown 05/10/2024 1 :19 PM EDT 05/10/2024 1:20 PM EDT Narrative [facility] [employer] [facility] [employer] [employer] - 05/11/2024 6:38 AM EDT FASTING:NO Franchesca Roberts PA-C LAB - BLOOD DRAW Final Resu lt Performing Organization Address [facility]/ZIP Co de Phone Number [facility] [employer] [facility] [employer] [address] [address], [employer] [address] [phone] * (ABNORMAL) HGBA1C W/MPG (03/14/2024 3:16 PM EDT) HEMOGLOBIN A1C 6.8(H) <5.7 % of total Hgb [facility] Comment: For someone without known diabetes, a hemoglobin A1c value of 6.5% or greater indicates that they may have diabetes and this should be confirmed with a follow-up test. For someone with known diabetes, a value <7% indicates that their diabetes is well controlled and a value greater than or equal to 7% indicates suboptimal control. A1c targets should be individualized based on duration of diabetes, age, comorbid conditions, and other considerations. Currently, no consensus exists regarding use of hemoglobin A1c for diagnosis of diabetes for children. ?? MEAN PLASMA GLUCOSE 165 mg/dL (calc) [facility] Blood Blood / Unknown 03/14/2024 3 :16 PM EDT 03/14/2024 3:17 PM EDT Franchesca Roberts PA-C LAB - BLOOD DRAW Edited Res ult - Final Performing Organization Address [facility] Co de Phone Number [facility] [employer] [facility] [employer] [address] [address], [employer] [address] [phone] * MICROALBUMIN/CREATININE RATIO, URINE, RANDOM (03/14/2024 3:16 PM EDT) CREATININE, RANDOM URINE 67 20 - 275 mg/dL [facility] MICROALBUMIN <0.2 mg/dL [facility] Comment: Reference Range Not established MICROALBUMIN/CREA TININE RATIO, RANDOM URINE NOTE <30 [facility] Comment: NOTE: The urine albumin value is less than 0.2 mg/dL therefore we are unable to calculate excretion and/or creatinine ratio. The ADA defines abnormalities in albumin excretion as follows: Albuminuria Category ?Result (mg/g creatinine) Normal to Mildly increased ?? <30 Moderately increased ? 30-299 Severely increased ? > OR = 300 The ADA recommends that at least two of three specimens collected within a 3-6 month period be abnormal before considering a patient to be within a diagnostic category. Urine Urine specimen / Unknown 03/14/2024 3:16 PM EDT 03/14/2024 3:17 PM EDT us Franchesca Roberts PA-C LAB - NO BLOOD DRAW Final R esult [employer] [address] [place] [id number], [facility] [address] [place] [phone] * (ABNORMAL) LIPID PANEL (03/14/2024 3:16 PM EDT) CHOLESTEROL, TOTAL 136 <200 mg/dL [facility] HDL CHOLESTEROL 43(L) > OR = 50 mg/dL [facility] TRIGLYCERIDES 212(H) <150 mg/dL [facility] Comment: If a non-fasting specimen was collected, consider repeat triglyceride testing on a fasting specimen if clinically indicated. Pallavi et al. J. of Clin. Lipidol. 2015;9:129-169. LDL-CHOLESTEROL 65 99 mg/dL (calc) [facility] Comment: Reference range: <100 Desirable range <100 mg/dL for primary prevention; ?? <70 mg/dL for patients with CHD or diabetic patients with > or = 2 CHD risk factors. LDL-C is now calculated using the Aravind-Uriel calculation, which is a validated novel method providing better accuracy than the Friedewald equation in the estimation of LDL-C. Aravind SS et al. ROSINA. 2013;310(19): 4685-3501 (http://education.[employer]/faq/EEY089) CHOL/HDLC RATIO 3.2 <5.0 (calc) [facility] NON-HDL CHOLESTEROL 93 <130 mg/dL (calc) [facility] Comment: For patients with diabetes plus 1 major ASCVD risk factor, treating to a non-HDL-C goal of <100 mg/dL (LDL-C of <70 mg/dL) is considered a therapeutic option. Blood Blood / Unknown 03/14/2024 3:16 PM EDT 03/14/2024 3:17 PM EDT Franchesca Roberts PA-C LAB - BLOOD DRAW Final Resu lt [facility] [employer] [facility] [address] [address], [facility] [employer] [facility] [address] [place] [address] * COMPREHENSIVE METABOLIC PANEL (03/14/2024 3:16 PM EDT) GLUCOSE 92 65 - 99 mg/dL [facility] [employer] [facility] [facility] Comment: ?Fasting reference interval UREA NITROGEN (BUN) 16 7 - 25 mg/dL [facility] [employer] [facility] [facility] CREATININE (blood) 0.72 0.50 - 1.03 mg/dL [facility] [employer] [facility] [facility] EGFR 100 > OR = 60 mL/min/1. 73m2 [employer] | Anywhere [facility] BUN/CREATININE RATIO SEE NOTE: [place] Comment: ?? Not Reported: BUN and Creatinine are within ?? reference range. ? SODIUM 138 135 - 146 mmol/L [employer] | Anywhere [facility] POTASSIUM 4.3 3.5 - 5.3 mmol/L [employer] | Anywhere [facility] CHLORIDE 104 98 - 110 mmol/L [employer] | Anywhere [facility] CARBON DIOXIDE 22 20 - 32 mmol/L [employer] | Anywhere [facility] CALCIUM 10.3 8.6 - 10.4 mg/dL [employer] | Anywhere [facility] PROTEIN, TOTAL 7.4 6.1 - 8.1 g/dL [employer] | Anywhere [facility] ALBUMIN 4.5 3.6 - 5.1 g/dL [employer] | Anywhere [facility] GLOBULIN 2.9 1.9 - 3.7 g/dL (calc) [employer] | Anywhere [facility] ALBUMIN/GLOBULI N RATIO 1.6 1.0 - 2.5 (calc) [employer] | Anywhere [facility] BILIRUBIN, TOTAL 0.2 0.2 - 1.2 mg/dL [employer] | Anywhere [facility] ALKALINE PHOSPHATASE 53 37 - 153 U/L [employer] | Anywhere [facility] AST 13 10 - 35 U/L [employer] | Anywhere [facility] ALT 14 6 - 29 U/L [employer] | Anywhere [facility] Blood Blood / Unknown 03/14/2024 3 :16 PM EDT 03/14/2024 3:17 PM EDT Franchesca Roberts PA-C LAB - BLOOD DRAW Edited Res ult - Final Performing Organization Address City/[facility]/ZIP Co de Phone Number [employer] | Anywhere [address] [address], [employer] | Anywhere [address] [address] * HEPATITIS C AB W/RFLX HCV RNA, QT, RT PCR (07/08/2021 10:28 AM EDT) Pathologist [facility] HEPATITIS C ANTIBODY NON-REACT THERESA NON-REACT THERESA [employer] | Anywhere [facility] SIGNAL TO CUT-OFF 0.01 <1.00 [employer] | Anywhere [facility] Comment: HCV antibody was non-reactive. There is no laboratory evidence of HCV infection. In most cases, no further action is required. However, if recent HCV exposure is suspected, a test for HCV RNA (test code 66082) is suggested. For additional information please refer to http://education.Socialthing/faq/IWT96q6 (This link is being provided for informational/ educational purposes only.) Blood Blood / Unknown 07/08/2021 1 0:28 AM EDT 07/08/2021 10:29 AM EDT Chidi Aleman BUSINESS ECONOMIST LAB - BLOOD DRAW Edited R esult - Final Performing Organization Address City/[facility]/ZIP Co de Phone Number [employer] | Anywhere [address] [address], [employer] | Anywhere [address],[facility] [address] * HIV 1/2 AG & AB W/RFLX (4TH GEN) (07/08/2021 10:28 AM EDT) Pathologist [facility] HIV AG/AB, 4TH GEN NON-REAC TIVE NON-REAC TIVE [employer] | Anywhere [facility] Comment: HIV-1 antigen and HIV-1/HIV-2 antibodies were not detected. There is no laboratory evidence of HIV infection. PLEASE NOTE: This information has been disclosed to you from records whose confidentiality may be protected by state law. ??If your state requires such protection, then the state law prohibits you from making any further disclosure of the information without the specific written consent of the person to whom it pertains, or as otherwise permitted by law. A general authorization for the release of medical or other information is NOT sufficient for this purpose. ?? For additional information please refer to http://education.Socialthing/faq/HJE833 (This link is being provided for informational/ educational purposes only.) The performance of this assay has not been clinically validated in patients less than 2 years old. Blood Blood / Unknown 07/08/2021 1 0:28 AM EDT 07/08/2021 10:29 AM EDT Chidi DREWP LAB - BLOOD DRAW Final Re sult [facility] [address] [address], [employer] | Anywhere [facility] [address] [address] * HISTORIC COLONOSCOPY (06/25/2021 12:00 AM EDT) 06/25/2021 Coy HENSON PROCEDURES Final Result from Last 3 Months or Most Recently Relevant to Health Maintenance Insurance [place] - [place] D[place] [facility] DENTAL MEDICAID Care Teams Business Account Specialist Relationship Specialty Start Date End Date Coy Adhikari PA [address] [place] [address] PCP - General Internal Medicine 04/10/17"
--- OUTSIDE RECORDS SUMMARY | 2024-10-25 11:42 | XMS_ITS | Clinical Summary ---
Author Organization Patient Business Ser [facility] Address [address] [place] [address] Care Team Providers Care Art Gilder Name Role Phone Bronson Adhikari Primary Care Provider [phone] Social History Tobacco Use Types Packs/Day Years Used Date Smoking Tobacco: Former Smokeless Tobacco: Never Sex and Gender Information Value Date Recorded Sex Assigned at Not on file Gender Identity Not on file Sexual Orientation Not on file Obstetrics History Last Filed Vital Signs Vital Sign Reading Time Taken Comments Blood Pressure 122/68 03/05/2023 3:48 PM EDT Sit ting L Arm Pulse 60 03/05/2023 3:48 PM EDT Temperature - - Respiratory Rate - - Oxygen Saturation - - Inhaled Oxygen Concentration - - Weight 105 kg (232 lb) 03/05/2023 3:48 PM EDT Height 170.2 cm (5' 7 ) 03/05/2023 3:48 PM EDT Body Mass Index 36.34 03/05/2023 3:48 PM EDT Plan of Treatment Health Maintenance Due Date Last Done Comments DTaP,Tdap,and Td Vaccines (1 - Tdap) 1989 Hepatitis B Vaccines (1 of 3 - 19+ 3-dose series) 1989 Cervical Cancer Screening: Pap Smear 01/01/1992 Colorectal Cancer Screening: Colonoscopy 05/23/2020 Depression Screening 05/23/2020 HIV Screening 05/23/2020 Hepatitis C Screening 05/23/2020 Social Influencers of Health Screening 05/23/2020 Zoster Vaccines (1 of 2) 2020 COVID-19 Vaccine ( - season) 2024 Influenza Vaccine (#1) 2024 Breast Cancer Screening 07/13/2026 07/13/20 24, 07/10/2023, 07/07/2022, Additional history exists HIB Vaccines Aged Out No longer eligi ble based on patient's age to complete this topic HPV Vaccines Aged Out No longer eligi ble based on patient's age to complete this topic Hepatitis A Vaccines Aged Out No long er eligible based on patient's age to complete this topic IPV Vaccines Aged Out No longer eligi ble based on patient's age to complete this topic MMR Vaccines Aged Out No longer eligi ble based on patient's age to complete this topic Meningococcal ACWY Vaccine Aged Out N o longer eligible based on patient's age to complete this topic Pneumococcal Vaccine: Pediatrics (0 to 5 Years) and At-Risk Patients (6 to 64 Years) Aged Out No longer eligible based on patient's age to complete this topic RSV Immunization Patients Under 20 months Aged Out No longer eligible based on patient's age to complete this topic Varicella Vaccines Aged Out No longer eligible based on patient's age to complete this topic Procedures Procedure Name Priority Date/Time Associated Diagnosis Comments [facility] SCREENING DIGITAL Routine 07/13/2024 8:15 AM EDT Encounter for screening mammogram for malignant neoplasm of breast from Last 3 Months or Most Recently Relevant to Health Maintenance Results * [facility] SCREENING DIGITAL (07/13/2024 8:15 AM EDT) Anatomical Region Laterality Modality Mammography 07/12/2024 3:17 PM EDT Narrative 07/13/2024 8:15 AM EDT [facility] Diagnostic Imaging Department [address] [place] [address] [id number] Patient: ??COREEN JONAS ?/Age/Sex: 1970 - 53 - Unit#: ??[id number] ? Location/Status: ??SPDIMAM/REG CLI ? Mnemonic/Ordering Site: ??DIGSC/SPMAM Ordering Physician: ??BRONSON ADHIKARI Erlinda Screening Digital - 07/12/24 - 1530 Report Status:Signed EXAM: [facility] Screening Digital EXAM DATE AND TIME: 07/12/2024 3:31 PM HISTORY: ??Screening. COMPARISON: ??07/10/23, 07/07/22, 07/05/21 TECHNIQUE: Bilateral digital breast tomosynthesis was performed in the CC and MLO projections. Computer aided detection with [employer] 3D 3.1 was employed. TISSUE DENSITY: b. There are scattered areas of fibroglandular density. FINDINGS: No suspicious masses, grouped microcalcifications, or areas of architectural distortion are seen. Microcalcifications are again seen in the upper outer quadrants of both breasts, stable from previous studies. The skin and vascularity are unremarkable. IMPRESSION: Stable mammographic appearance of the breasts. ??No evidence of malignancy is seen. A negative mammogram in the presence of a clinically suspicious palpable abnormality does not preclude the possibility of malignancy or alter the indications for biopsy. BI-RADS: ??Category 2: Benign RECOMMENDATION(S): 1: Routine screening mammogram BILATERAL in 1 year. Mammogram performed at [facility] [place] [address] Dictating Physician: ??FLOR BROTHERS MD Electronically Signed by: ??FLOR BROTHERS MD Dic Date/Time: ??07/13/24813 Sign date/Time: ??07/13/24814 Procedure Note Flor Brothers MD - 08/02/2024 [facility] Diagnostic Imaging Department [address] [facility] [place] [address] Patient: STORM DAVISCOREEN/Age/Sex: 1970 - 53 - F Unit#: [id number] Location/Status: SPDIMAM/REG CLI Mnemonic/Ordering Site: [facility] Ordering Physician: BRONSON ADHIKARI [facility] Screening Digital - 07/12/24 - 1530 Report Status:Signed EXAM: [facility] Screening Digital EXAM DATE AND TIME: 07/12/2024 3:31 PM HISTORY: Screening. COMPARISON: 07/10/23, 07/07/22, 07/05/21 TECHNIQUE: Bilateral digital breast tomosynthesis was performed in the CCand MLO projections. Computer aided detection with [employer] 3D 3.1was employed. TISSUE DENSITY: b. There are scattered areas of fibroglandular density. FINDINGS: No suspicious masses, grouped microcalcifications, or areas ofarchitectural distortion are seen. Microcalcifications are again seen in the upperouter quadrants of both breasts, stable from previous studies. The skin and vascularity are unremarkable. IMPRESSION: Stable mammographic appearance of the breasts. No evidence of malignancyis seen. A negative mammogram in the presence of a clinically suspicious palpable abnormality does not preclude the possibility of malignancy or alter the indications for biopsy. BI-RADS: Category 2: Benign RECOMMENDATION(S): 1: Routine screening mammogram BILATERAL in 1 year. [facility] performed at [facility] [address] [address] Dictating Physician: FLOR BROTHERS MD Electronically Signed by: FLOR BROTHERS MD Dic Date/Time: 07/13/24813 Sign date/Time: 07/13/24814 Bronson HENSON IMG BI PROCEDURES from Last 3 Months or Most Recently Relevant to Health Maintenance Advance Directives Documents on File Type Date Recorded Patient Cigar Head Pegger Expl anation Health Care Decision (hx) 08/24/2015 AD ARRIAGA DIRECTIVE Health Care Decision (hx) 08/24/2015 AD ARRIAGA DIRECTIVE Health Care Decision (hx) 08/24/2015 AD ARRIAGA DIRECTIVE Health Care Decision (hx) 08/24/2015 AD ARRIAGA DIRECTIVE Health Care Decision (hx) 08/24/2015 AD ARRIAGA DIRECTIVE Health Care Decision (hx) 08/24/2015 AD ARRIAGA DIRECTIVE Health Care Decision (hx) 08/24/2015 AD ARRIAGA DIRECTIVE Health Care Decision (hx) 08/24/2015 AD ARRIAGA DIRECTIVE Health Care Decision (hx) 08/24/2015 AD ARRIAGA DIRECTIVE Health Care Decision (hx) 08/24/2015 AD ARRIAGA DIRECTIVE Health Care Decision (hx) 08/24/2015 AD ARRIAGA DIRECTIVE Health Care Decision (hx) 08/24/2015 AD ARRIAGA DIRECTIVE Health Care Decision (hx) 08/24/2015 AD ARRIAGA DIRECTIVE Health Care Decision (hx) 08/24/2015 AD ARRIAGA DIRECTIVE Health Care Decision (hx) 08/24/2015 AD ARRIAGA DIRECTIVE Health Care Decision (hx) 08/21/2015 AD ARRIAGA DIRECTIVE Health Care Decision (hx) 08/21/2015 AD ARRIAGA DIRECTIVE Health Care Decision (hx) 08/21/2015 AD ARRIAGA DIRECTIVE Health Care Decision (hx) 08/21/2015 AD ARRIAGA DIRECTIVE Health Care Decision (hx) 08/21/2015 AD ARRIAGA DIRECTIVE Health Care Decision (hx) 08/21/2015 AD ARRIAGA DIRECTIVE Health Care Decision (hx) 08/21/2015 AD ARRIAGA DIRECTIVE Health Care Decision (hx) 08/21/2015 AD ARRIAGA DIRECTIVE Health Care Decision (hx) 08/21/2015 AD ARRIAGA DIRECTIVE Health Care Decision (hx) 08/21/2015 AD ARRIAGA DIRECTIVE Health Care Decision (hx) 08/21/2015 AD ARRIAGA DIRECTIVE Health Care Decision (hx) 08/21/2015 AD ARRIAGA DIRECTIVE Health Care Decision (hx) 08/21/2015 AD ARRIAGA DIRECTIVE Health Care Decision (hx) 08/21/2015 AD ARRIAGA DIRECTIVE Health Care Decision (hx) 08/21/2015 AD ARRIAGA DIRECTIVE Health Care Decision (hx) 08/21/2015 AD ARRIAGA DIRECTIVE Health Care Decision (hx) 08/21/2015 AD ARRIAGA DIRECTIVE Health Care Decision (hx) 08/21/2015 AD ARRIAGA DIRECTIVE Health Care Decision (hx) 08/21/2015 AD ARRIAGA DIRECTIVE Health Care Decision (hx) 08/21/2015 AD ARRIAGA DIRECTIVE Health Care Decision (hx) 08/21/2015 AD ARRIAGA DIRECTIVE Health Care Decision (hx) 08/21/2015 AD ARRIAGA DIRECTIVE Health Care Decision (hx) 08/21/2015 AD ARRIAGA DIRECTIVE Health Care Decision (hx) 08/21/2015 AD ARRIAGA DIRECTIVE Health Care Decision (hx) 08/21/2015 AD ARRIAGA DIRECTIVE Health Care Decision (hx) 08/21/2015 AD ARRIAGA DIRECTIVE Health Care Decision (hx) 08/21/2015 AD ARRIAGA DIRECTIVE Health Care Decision (hx) 08/21/2015 AD ARRIAGA DIRECTIVE Health Care Decision (hx) 08/21/2015 AD ARRIAGA DIRECTIVE Health Care Decision (hx) 08/21/2015 AD ARRIAGA DIRECTIVE Care Teams Art Gilder Relationship Specialty Start Date End Date Bronsno Adhikari PA [address] [place] [address] PCP - General Internal Medicine 03/11/19
== END 2024-10-25 10:55 | disposition home or self-care (01) ==
LOC: HO.PMCPRC 10:23
PROVIDERS: PCP Physician Assistant; Visit Provider Anesthesiology
DX: M54.16 Radiculopathy, lumbar region (principal)
CPT/HCPCS: 64483

== ENCOUNTER 2024-11-14 12:17 | Outpatient (AMB) | payer MEDICARE, MEDICAID, SELFPAY ==
--- NOTE | 2024-11-14 12:52 | MHC.OFFVIS ---
Vital Signs 11/14/24 12:55 Height 5 ft 7 in Weight 209 lb BMI 32.7 BP 134/75 Blood Pressure Location Lt brachial Position Sitting Pulse 86 Pulse Source Pulse Oximeter Pulse Oximetry (%) 98 Oxygen Delivery Method Room Air Intake Visit Reasons: RIGHT L4, L5 TFESI Intake Note: Pain today 04/13 Bulk Folder Required: No Accompanied by: Self / Same As Patient Allergies oxycodone Allergy (Severe, Verified 11/14/24 12:56) Anaphylaxis Penicillins Adverse Reaction (Severe, Verified 11/14/24 12:56) rash Medication List - Last Reconciled 11/14/24 by WINSTON Wood albuterol sulfate 90 mcg/actuation (Ventolin HFA) 2 puffs inhalation Q4-6H PRN aspirin mg PO bupropion HCl XL mg PO buspirone 10 mg PO BID cetirizine 10 mg PO DAILY clonazepam 1 mg PO BEDTIME PRN diclofenac sodium 1% topical empagliflozin (Jardiance) 10 mg PO DAILY estradiol 1 patch transdermal QWEEK famotidine 40 mg PO DAILY ferrous sulfate 325 mg PO QAM fluticasone furoate 100 mcg/actuation (Arnuity Ellipta) 1 inh inhalation DAILY gabapentin 100 mg PO TID insulin glargine (Lantus Solostar U-100 Insulin) 10 units subcut QPM insulin glargine-yfgn (Semglee (insulin glargine-yfgn) Pen) 10 units subcut DAILY levothyroxine 125 mcg PO DAILY lidocaine 5% 1 patch topical DAILY linaclotide (Linzess) mcg PO QAM lisinopril 40 mg PO DAILY lorazepam 1 mg PO BID meclizine 25 mg PO BID PRN metformin 1,000 mg PO BID nabumetone (Relafen DS) 500 mg PO DAILY naltrexone 25 mg PO DAILY naproxen mg PO pantoprazole 40 mg PO DAILY rosuvastatin 40 mg PO DAILY semaglutide (Ozempic) mg subcut sucralfate PO zolpidem 10 mg PO BEDTIME PRN HPI Comments Details: Patient presents today to assess response to Right L4-L5 TFESI on 10/25/[address] Paez. Patient reports 0% pain relief since procedure and no significant improvement in her daily activities and functioning, mobility or sleep. Patient continues to endorse right sided radiculopathy symptoms with back pain radiating into her right buttock and into her right buttock, lateral hip and right lower leg. She reports right hip with radiation into her groin. Pain limits her walking capacity and daily activities, sleep, mood and social interactions. She denies any symptoms on her left side. Denies any fever or chills, bladder or bowel dysfunction or saddle anesthesia. Reports RLE intermittent weakness due to pain, uses cane with ambulation. Past Procedures: 10/25/24: Right L4-L5 TFESI-0% pain relief 08/09/24: Bilateral Diagnostic SIJ injections- 0% pain relief PRIOR: Patient is a 53 years old female presents today for low back pain with bilateral radiculopathy. She was referred to our office by [facility] for diagnostic right sacroiliac joint injection. Denies any recent trauma, injury or falls. Back pain is axial and also extends to sacral and buttocks areas and into her groin and posterior thighs, worse on the right. She also experiences significant right groin pain with internal and external hip rotations and weight bearing. She ambulates with antalgic gait with limping, favoring left side. Pain is worse with prolonged sitting, driving, changing positions from sitting to standing, walking, climbing stairs and most movements. She also reports moderate pain with lumbar extension and axial rotations. Patient utilizes cane with ambulation. She completed multiple courses of physical therapy, has been taking OTC medications, gabapentin, lidocaine patches with continued symptoms. Reports PT exacerbated her pain symptoms. Pain has been present for over 10 years and has been resistant to conservative treatments. Pain affects her daily activities and functioning, mobility, sleep, mood and quality of life. She completed lumbar spine MRI report at [facility] and had Neurosurgical evaluation by [facility] with no surgical recommendations at this time. Patient is interested to undergo bilateral diagnostic sacroiliac joint injections as next steps. Denies any fever, chills, abdominal pain, chest pain, headache, dizziness, numbness or tingling, weakness, foot drop, bladder or bowel dysfunction or saddle anesthesia. [facility] Medical History GERD (gastroesophageal reflux disease) Fibromyalgia Hypertension Asthma T2DM (type 2 diabetes mellitus) Uterine fibroid Hypothyroidism JUAREZ (obstructive sleep apnea) Lipoma of back Diverticulitis PTSD (post-traumatic stress disorder) Review of Systems Const All systems reviewed & are unremarkable except as noted in HPI and below Physical Exam General: Appears afebrile. Alert and oriented. Mood and affect appropriate. Follows and participates in conversation appropriately. Respiratory effort is unlabored. No cough. Able to transition from sit to stand unassisted. Ambulates with normal heel strike and toe off on the left, reports imbalance and unsteadiness on the right due to pain. General: Yes no CVA tenderness Back/Spine/Pelvis Other: Limited lumbar ROM due to pain. Antalgic gait with mild limping. Lumbar extension and flexion forward reproduces moderate pain. Demonstrates 5/5 left and 4/5 right due to pain strength of quadriceps bilaterally as well as flexion/dorsiflexion of bilateral feet against resistance. 2+ pedal pulses bilaterally. Seated straight leg rise with dorsiflexion negative bilaterally. +1 patellar and achilles reflexes bilaterally. Facet loading test positive bilaterally. Yusuf sign, Chalino?s, Gaenslen, Pelvic compression and Stinchfield tests are positive bilaterally, right>left. Moderate groin pain with I/E hip rotations, right>left. Valsalva maneuver is negative. Back: no CVA tenderness Cervical Spine: cervical ROM normal, cervical muscular tenderness and No Cervical spine tenderness Thoracic/Lumbar Spine: thoracic and lumbar spine normal to inspection, No Thoracic/lumbar spine scar(s), Lasegue's sign negative, straight leg raise negative bilaterally, pain with thoraco-lumbar ROM, paraspinal muscle tenderness bilaterally, thoraco-lumbar ROM limited, No thoracic spinal tenderness and lumbar spinal tenderness (L4-S1) Pelvis: buttock tenderness bilaterally Sacroiliac joints: bilaterally tender to palpation Results Reviewed Results Reviewed: XR BILATERAL HIPS WITH AP PELVIS 04/01/24 FINDINGS: Degenerative changes in the imaged lower lumbar spine. Moderate degenerative changes in the bilateral sacroiliac joints. [id number]-[id number] degenerative changes in bilateral hips with joint space narrowing and lateral acetabular hypertrophic change. Sclerotic focus overlying the right humeral head may represent a bony lesion such as a bone island versus less likely soft tissue calcification. IMPRESSION: 1. Bfvt-ts-tcpxncuy degenerative changes in bilateral hips. 2. Moderate degenerative changes in the bilateral sacroiliac joints. 3. Degenerative changes in the imaged lower lumbar spine. Assessment & Plan Assessment & Plan (1) SI (sacroiliac) joint dysfunction: Code(s): M53.3 - Sacrococcygeal disorders, not elsewhere classified Category: Medical (2) Lumbosacral spondylosis: Code(s): M47.817 - Spondylosis without myelopathy or radiculopathy, lumbosacral region Category: Medical (3) Lumbar degenerative disc disease: Code(s): M51.36 - Other intervertebral disc degeneration, lumbar region Category: Medical (4) Lumbar radiculopathy: Code(s): M54.16 - Radiculopathy, lumbar region Category: Medical (5) Right hip pain: Code(s): M25.551 - Pain in right hip Category: Medical (6) Osteoarthritis of hips, bilateral: Code(s): M16.0 - Bilateral primary osteoarthritis of hip Category: Medical Plan Patient is one week status post right L4-L5 TFESI with no pain relief. Prior to these injections, she underwent bilateral diagnostic SI joint injections with no pain relief. She continues to endorse right sided radiculopathy, SIJ and right hip with groin pain. Patient would like to undergo Right intra-articular hip steroid injection with local and fluoroscopy to address hip pain. If no relief, will proceed with Orthopedic evaluation. Expectations, risks and benefits were reviewed. Patient is aware she will be contacted to schedule this procedure. All questions were answered and the patient is in agreement of plan. Follow-up after injection and sooner as needed. Coding Level of Care Code Est Pt Level 4 (05013) Complex EM visit Add On G2211 Diagnoses SI (sacroiliac) joint dysfunction M53.3 Lumbosacral spondylosis M47.817 Lumbar degenerative disc disease M51.36 Lumbar radiculopathy M54.16 Right hip pain M25.551 Osteoarthritis of hips, bilateral M16.0
[2024-11-14 12:55] VITALS: BP 134/75; PULSE 86; O2SAT 98; BMI 32.7
== END 2024-11-14 13:15 | disposition home or self-care (01) ==
PROVIDERS: PCP Physician Assistant; Visit Provider Nurse Practitioner Family
DX: M53.3 Sacrococcygeal disorders, not elsewhere classified (principal); M47.817 Spondylosis without myelopathy or radiculopathy, lumbosacral region; M51.369 Other intervertebral disc degeneration, lumbar region without mention of lumbar back pain or lower extremity pain; M54.16 Radiculopathy, lumbar region; M25.551 Pain in right hip; M16.0 Bilateral primary osteoarthritis of hip
CPT/HCPCS: 99214; G2211

== ENCOUNTER → 2024-11-14 12:17 | Outpatient (BNVA) | payer MEDICARE, MEDICAID, SELFPAY | PROVIDERS: PCP Physician Assistant; Visit Provider Nurse Practitioner Family | DX: M53.3 Sacrococcygeal disorders, not elsewhere classified (principal); M47.817 Spondylosis without myelopathy or radiculopathy, lumbosacral region; M51.360 Other intervertebral disc degeneration, lumbar region with discogenic back pain only; M54.16 Radiculopathy, lumbar region; M25.551 Pain in right hip; M16.0 Bilateral primary osteoarthritis of hip | CPT/HCPCS: 99212 ==

== ENCOUNTER 2025-01-10 06:32 | Outpatient (REF) | payer MEDICARE, MEDICAID, SELFPAY ==
--- NOTE | ~2025-01-10 | FL_ITS ---
EXAMINATION: XR FLUOROSCOPY WITH IMAGES CLINICAL INFORMATION: Pain management injection right hip COMPARISON: Hip radiographs 03/24/2024. TECHNIQUE: Fluoroscopy provided to: Dr. Paez Fluoroscopy time: 12.8 seconds DAP: 3.6440 Gycm2 Images: 2 FINDINGS: 2 spot images obtained during right hip pain management injection. Please refer to the full procedural report for details. FL/FL guidance in treatment room IMPRESSION: Fluoroscopic guidance. Electronically signed by: Eros Walters MD 01/11/2025 08:18 AM EDT
--- OUTSIDE RECORDS SUMMARY | 2025-01-10 06:36 | XMS_ITS | Clinical Summary ---
Author Organization [facility] Address [address] [place] [address] Care Team Providers Care Dag Sprayer Name Role Phone Coy Adhikari Primary Care Provider [phone] Source Comments PLEASE NOTE, if this patient [...] no issues. Medications leg brace (KNEE SUPPORT BRACE)Indications:Chron ic pain of left knee Left knee brace, support for patient with arthritis left knee. 1 Each 022 Active flash glucose scanning reader (FREESTYLE ALEXANDRA 2 READER) miscIndications:Insulin dependent type 2 diabetes mellitus, uncontrolled 1 Device by miscellaneous route continuous 1 Each 022 Active timoloL maleate (TIMOPTIC) 0.5 % ophthalmic solution Active nabumetone (RELAFEN) 500 mg tablet TAKE 1 TABLET BY MOUTH TWICE A DAY 45 Tablet 1 Active naltrexone (DEPADE) 50 mg tabletIndications:Class 1 obesity due to excess calories with serious comorbidity and body mass index (BMI) of 33.0 to 33.9 in adult TAKE 1/2 TABLET BY MOUTH EVERY DAY 15 Tablet 1 022 Active flash glucose sensor (FREESTYLE ALEXANDRA 2 SENSOR) kitIndications:Type 2 diabetes mellitus with hyperosmolarity without coma, with long-term current use of insulin ([facility]),Routine adult health maintenance USE DIRECTED ,,CHANGE EVERY 14 DAYS 2 Kit 11 023 Active timolol (BETIMOL OPHT) Apply 1 Drop to eye 022 Active estradioL (CLIMARA) 0.1 mg/24 hr patch APPLY 1 PATCH TOPICALLY ONCE WEEKLY Active nystatin (MYCOSTATIN) 100,000 unit/gram powder Apply topically 023 Active MISCELLANEOUS MEDICAL SUPPLY MISCIndications:Acute coccygeal pain Donut shaped cushion x99 years 5'9 206 lbs 1 Each 024 Active budesonide-formoteroL (SYMBICORT) 80-4.5 mcg/actuation inhaler Inhale 2 Puffs into the lungs 2 (two) times daily 10.2 g 1 024 Active VENTOLIN HFA 90 mcg/actuation inhalerIndications:Unco mplicated asthma, unspecified asthma severity, unspecified whether persistent ([facility]) INHALE 2 PUFFS INTO THE LUNGS EVERY 4 (FOUR) HOURS NEEDED FOR SHORTNESS OF BREATH OR WHEEZING 18 Each 3 024 Active blood sugar diagnostic (FREESTYLE TEST) stripsIndications:Type 2 diabetes mellitus without complications ([facility]) as needed for high blood sugar Check glucose once daily 100 Each 5 024 Active alcohol swabsIndications:Contro lled type 2 diabetes mellitus without complication, 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 2 Tablet 024 Active ARNUITY ELLIPTA 100 mcg/actuation dsdvIndications:Uncompl icated asthma, unspecified asthma severity, unspecified whether persistent ([facility]) INHALE 1 PUFF INTO THE LUNGS DAILY 30 Each 2 024 Active estradioL (CLIMARA) 0.1 mg/24 hr patch Apply 1 Patch topically 023 Active metoclopramide (REGLAN) 10 mg tablet TAKE 1 TABLET BY MOUTH EVERY 6 HOURS NEEDED FOR NAUSEA AND VOMITING FOR 7 DAYS 023 Active mupirocin (BACTROBAN) 2 % ointmentIndications:Wou nd dehiscence APLICA TOPICAMENTE AURELIO VECES AL ADAN 22 g 024 Active levothyroxine 125 mcg tabletIndications:Acqui red hypothyroidism TAKE 1 TABLET BY MOUTH IN THE MORNING BEFORE BREAKFAST, STOP LEVOTHYROXINE 150 MCG 90 Tablet 3 024 Active cholecalciferol, vitamin D3, (VITAMIN D3) 1,250 mcg (50,000 unit) capsuleIndications:Fami lial hypercholesterolemia Take 1 Capsule by mouth once a week 12 Capsule 1 024 Active diclofenac sodium (VOLTAREN) 1 % gelIndications:Chronic pain of left knee APPLY TO AFFECTED AREA TWICE A DAY 300 g 2 024 Active cyclobenzaprine (FLEXERIL) 5 mg tabletIndications:Fibro myalgia TAKE 1 TABLET BY MOUTH THREE TIMES A DAY NEEDED FOR MUSCLE SPASM 60 Tablet 024 Active meclizine (ANTIVERT) 25 mg tablet TAKE 1 TABLET BY MOUTH TWICE A DAY NEEDED FOR NAUSEA AND DIZZINESS 60 Tablet 2 024 Active metFORMIN (GLUCOPHAGE) 1,000 mg tabletIndications:Diabe karolyn mellitus without complication ([facility]) TAKE 1 TABLET BY MOUTH TWICE A DAY WITH FOOD 180 Tablet 1 024 Active famotidine (PEPCID) 40 mg tabletIndications:Gastr oesophageal reflux disease with esophagitis, unspecified whether hemorrhage TAKE 1 TABLET BY MOUTH EVERY DAY 90 Tablet 1 024 Active lidocaine (LIDODERM) 5 % patchIndications:Chroni c bilateral low back pain without sciatica PLACE 1 PATCH TRANSDERMALLY TO THE AFFECTED AREA FOR A MAXIMUM OF 12 HOURS, THEN REMOVE FOR 12 HOURS 30 Patch 2 024 Active lisinopriL 40 mg tabletIndications:Essen tial hypertension TAKE 1 TABLET BY MOUTH EVERY DAY 90 Tablet 1 0[address] Active aspirin [address] tablet TAKE 1 TABLET BY MOUTH EVERY DAY 90 Tablet 2 025 Active LINZESS 72 mcg capIndications:Constipa tion, unspecified TAKE 1 CAPSULE BY MOUTH ONCE DAILY NEEDED FOR CONSTIPATION. 30 Capsule 1 025 Active pen needle, diabetic (BD ULTRA-FINE SHORT PEN NEEDLE) 31 gauge x 5/16 ndleIndications:Diabete s mellitus without complication ([facility]) USE ONCE DAILY DIRECTED 100 Each 1 025 Active sucralfate (CARAFATE) 1 gram tabletIndications:Acute gastritis without hemorrhage, unspecified gastritis type TAKE 1 TABLET BY MOUTH EVERY DAY 90 Tablet 1 025 Active insulin glargine 100 unit/mL (3 mL) penIndications:Severe obesity ([facility]),Type 2 diabetes mellitus with hyperglycemia, with long-term current use of insulin ([facility]) Inject 35 Units into the skin nightly at bedtime 10.5 mL 11 025 2025 Active estradioL (CLIMARA) 0.1 mg/24 hr patch APPLY 1 PATCH TOPICALLY ONCE WEEKLY 12 Patch 5 025 Active JARDIANCE 10 mg tabIndications:Type 2 diabetes mellitus without complications ([facility]) TAKE 1 TABLET BY MOUTH EVERY DAY 90 Tablet 1 025 Active rosuvastatin (CRESTOR) 40 mg tabletIndications:Famil ial hypercholesterolemia TOME 1 TABLETA POR VIA ORAL TODOS LOS GOOD 90 Tablet 025 Active ferrous sulfate 325 mg (65 mg iron) tablet TOME 1 TABLETA POR VIA ORAL TODOS LOS GOOD CON EL DESAYUNO 90 Tablet 025 Active gabapentin (NEURONTIN) 100 mg capsule TAKE 1 CAPSULE BY MOUTH 3 TIMES A DAY NEEDED FOR PAIN 90 Capsule 2 025 Active clonazePAM (KLONOPIN) 1 mg tabletIndications:PTSD (post-traumatic stress disorder) TAKE 1 TABLET BY MOUTH EVERY DAY NEEDED FOR ANXIETY 30 Tablet 2 025 Active naproxen (NAPROSYN) 500 mg tabletIndications:Lumba r spine pain,Bilateral hip pain TOME JIMBO TABLETA POR VIA ORAL DOS VECES AL ADAN CUANDO SEA NECESARIO PARA EL DOLOR OR SWELLING 30 Tablet 025 Active pantoprazole (PROTONIX) 40 mg EC tabletIndications:Gastr oesophageal reflux disease without esophagitis TAKE 1 TABLET BY MOUTH EVERY DAY 90 Tablet 1 025 Active buPROPion HCL (WELLBUTRIN XL) 300 mg 24 hr tabletIndications:Depre ssion, unspecified depression type Take 1 Tablet by mouth every morning 90 Tablet 025 Active zolpidem (AMBIEN) 10 mg tabletIndications:Insom khloe, unspecified type Take 1 Tablet by mouth nightly at bedtime as needed for sleep (Use ONLY NEEDED for sleeplessness) 30 Tablet 2 025 Active tirzepatide (MOUNJARO) 2.5 mg/0.5 mL pnijIndications:Type 2 diabetes mellitus with hyperglycemia, with long-term current use of insulin ([facility]) Inject 2.5 mg into the skin once a week 2 mL 025 Active tirzepatide (MOUNJARO) 5 mg/0.5 mL pnijIndications:Type 2 diabetes mellitus with hyperglycemia, with long-term current use of insulin ([facility]) Inject 5 mg into the skin once a week After one month 2 mL 1 025 Active barium sulfate (READI-CAT 2 ORAL) See Instructions, Dispense 2 bottles of 450 mL. Drink 1 bottle completely 3-4 hours prior to appointment. Drink 2nd bottle completely 1 hr prior to appointment., # 900 mL, 0 Refills, Maintenance, 05/28/23 12:00:00 EDT, [facility]/pharmacy #[id number], Partial fill... 023 2024 Disconti nued(The rapy complete d/Not needed) insulin glargine (LANTUS SOLOSTAR U-100 INSULIN) 100 unit/mL (3 mL) penIndications:Diabetes mellitus without complication ([facility]) INJECT 35 UNITS INTO THE SKIN DAILY 30 mL 2 024 2024 Disconti nued(Dup licate (E-Cance l Not Sent)) insulin glargine-yfgn (SEMGLEE,INSULIN GLARG-YFGN,PEN) 100 unit/mL (3 mL) inpnIndications:Type 2 diabetes mellitus without complications ([facility]) INJECT 35 UNITS INTO THE SKIN DAILY 30 mL 2 024 2024 Disconti nued(Dup licate (E-Cance l Not Sent)) OZEMPIC 0.25 mg or 0.5 mg (2 mg/3 mL) pen injector Inject 0.25 mg into the skin once a week 023 2024 Disconti nued(The rapy complete d/Not needed) semaglutide (OZEMPIC) 1 mg/dose (4 mg/3 mL) pen injectorIndications:Typ e 2 diabetes mellitus with hyperglycemia, with long-term current use of insulin ([facility]),Primary hypertension INJECT 1MG INTO THE SKIN ONCE A WEEK 9 mL 1 024 2024 Disconti nued(The rapy complete d/Not needed) semaglutide (OZEMPIC) 2 mg/dose (8 mg/3 mL) pen injectorIndications:Typ e 2 diabetes mellitus with hyperglycemia, with long-term current use of insulin ([facility]),Severe obesity ([facility]) INJECT 2 MG INTO THE SKIN ONCE A WEEK. 6 mL 2 025 2024 Disconti nued(Pat cecy garza ce) Active Problems Problem Noted Date Diagnosed Date Class 1 obesity due to exces s calories without serious comorbidity with body mass index (BMI) of 31.0 to 31.9 in adult 12/14/2024 Moderate episode of recurren t major depressive disorder ([facility]) 12/14/2024 Anxiety 05/05/2024 Mild episode of recurrent ma stepan depressive disorder ([facility]) 05/05/2024 History of MRI of lumbar spine [...] Moderate glaucoma- stable. Cataract- monitor Diabetes mellitus ([facility]) 11/14/2016 Fibromyalgia 09/04/2016 Asthma ([facility]) 02/08/2016 HTN (hypertension) 12/25/2015 Overview (12/11/2022): Takes lisinopril 30mg daily Gastroesophageal reflux disease without esophagi tis 12/25/2015 Overview (02/24/2019): EGD done on 02-24-19- biopsies taken. Await for results. Takes prilosec 20mg Hypercholesterolemia 12/25/2015 Overview (03/05/2022): Takes crestor 40mg Takes asprin 81mg daily Hypothyroidism 12/25/2015 Overview (12/11/2022): Takes metformin 1000mg BID Last a1c 12/2015: 8.3%, ldl 185 Depression 12/25/2015 Overview (12/11/2022): Not seen by phych and therapist. Takes takes seroquel 400mg at night Bupropion 300mg/24hrs Disease of thyroid gland 12/25/2015 Overview (12/11/2022): Takes Levothyroxine 150mcg daily Anemia 12/25/2015 Overview (12/25/2015): Iron Deficiency AnemiaTakes 325mg (65mg elemental iron) daily Arthralgia 12/25/2015 H/O vitamin D deficiency 12/25/2015 Insomnia 12/25/2015 Overview (12/25/2015): seroquel 400mg every night Resolved Problems Problem Noted Date Diagnosed Date Resolved Date Chest pain 05/05/2022 03/30/2023 Severe obesity ([facility]) 12/25/201509/2025 Overview (10/07/2023): Not motivated to lose weight Encounters Date Type Department Care Team Description 12/26/2024 1:00 PM EDT / Visits [facility] [address] [place] [phone] Shaw Mas LCSW Major depressive disorder, recurrent episode with anxious distress ([facility]) (Primary Dx) 12/14/2024 9:00 AM EDT Office Visit [address] [place] [phone] Chidi Aleman FNP Type 2 diabetes mellitus with hyperglycemia, with long-term current use of insulin ([facility]) (Primary Dx); Polypharmacy; Low back pain, unspecified back pain laterality, unspecified chronicity, unspecified whether sciatica present; Class 1 obesity due to excess calories without serious comorbidity with body mass index (BMI) of 31.0 to 31.9 in adult; Moderate episode of recurrent major depressive disorder ([facility]) 12/08/2024 2:00 PM EST / Visits [facility] [address] [place] [phone] Ladonna Sousa, Shanice Aguilar PTSD (post-traumatic stress disorder) (Primary Dx); Depression, unspecified depression type; Insomnia, unspecified type from Last 3 Months Immunizations Immunization Administration Dates Next Due Flu, Preservative Free 06/23/2023,2021,07/05/2021,2019,07/12/2019,06/24/2017,12/05/2016 INFLUENZA, SEASONAL, INJECTABLE 07/14/2018 Influenza (FLUBLOK),recombinant,injectable,pres ervative Free 06/28/2024 PNEUMOCOCCAL CONJUGATE PCV 13 03/05/2022 PNEUMOCOCCAL CONJUGATE PCV 2 0 (Prevnar) 11/19/2022 TDAP 12/05/2016,03/26/2016 ZOSTER VACCINE, RECOMBINANT (SHINGRIX) 09/04/2021,07/05/2021 Family History Medical History Relation Name Comments Depression Daughter Suicide Attempts Daughter Depression Mother Depression Sister Relation Name Status Comments Daughter Father Mother Sister Social History Tobacco Use Types Packs/Day Years Used Date Smoking Tobacco: Former Cigarettes 2 26 1 984 - 10/05/2009 Smokeless Tobacco: Former Quit: 03/13/2011 Tobacco Cessation:Counseling [...] Orientation Straight 01/20/2018 10 :13 AM PDT Last Filed Vital Signs Vital Sign Reading Time Taken Comments Blood Pressure 118/74 12/14/2024 9:17 AM EDT Pulse 84 12/14/2024 9:17 AM EDT Temperature 36.7 ??C (98 ??F) 06/28/2024 4:04 PM EDT Respiratory Rate 20 12/14/2024 9:17 AM EDT Oxygen Saturation 95% 05/05/2024 4:28 PM EDT Inhaled Oxygen Concentration - - Weight 97.5 kg (215 lb) 12/14/2024 9:17 AM EDT Height 175.3 cm (5' 9 ) 06/28/2024 4:04 PM EDT Body Mass Index 31.75 06/28/2024 4:04 PM EDT Plan of Treatment Upcoming Encounters Date Type Department Care Team (Late st Contact Info) Description 01/16/2025 3:20 PM EDT Telemedicine Visit [facility] [address] [place] [phone] Alek Quiroz, PharmD [address] [place] [address] 01/24/2025 1:45 PM EDT BH/MH Visits [facility] [address] [place] [phone] Shaw Mas, EQUIPMENT ENGINEERING TECHNICIAN [address] [place] [address] 03/09/2025 2:00 PM EDT BH/MH Visits [address] [phone] Ladonna Sousa, PMHNP [address] [place] [address] Shanice Fajardo [address] [place] [address] Health Maintenance Due Date Last Done Comments Anxiety Screening 1970 Dental FMX/Pano 1970 Dental Perio Charting 1970 HPV Screening 1970 Pap + HPV 1970 CT Colonography 01/01/2016 FIT/gFOBT 01/01/2016 Fecal DNA 01/01/2016 Flexible Sigmoidoscopy 01/01/2016 Pap Smear 01/06/2019 01/07/2016 (Rebecca ruiz by Outside Provider) [id number] ( season) 2024 Depression Monitoring 06/14/2024 03/14/2024 , 10/07/2023, 06/01/2023, Additional history exists Dental Prophy 09/05/2024 03/03/2024, 06/23/2022 Alcohol and Drug Screen 10/05/2024 03/14/20 24, 10/07/2023, 06/01/2023, Additional history exists Dental BW 03/05/2025 03/03/2024, 06/23/2022 Dental Examination 03/05/2025 03/03/2024, 06/23/2022 Diabetes Foot Exam 03/14/2025 03/14/2024, 0 11/19/2022, 10/07/2021, Additional history exists Lipid Screening 03/14/2025 03/14/2024, 10/05, 09/16/2022, Additional history exists Medicare Annual Wellness Visit 03/14/2025 0 03/14/2024, 02/04/2022, 05/23/2019, Additional history exists Urine Albumin Creatinine Rat io Screening 03/14/2025 03/14/2024, 09/11/2016 Diabetes HbA1c 03/16/2025 12/14/2024, 03/05, 10/16/2023, Additional history exists TSH Monitoring 05/10/2025 05/10/2024, 03/05, 06/09/2023, Additional history exists Retinopathy Screening 06/09/2025 06/09/2024 , 08/17/2023, 09/17/2022, Additional history exists Breast Cancer Screening (Mammogram) 07/12/2025 07/12/2024, 07/10/2023, 07/07/2022, Additional history exists Tobacco Screening 12/09/2025 12/09/2024, , 02/04/2022, Additional history exists Serum Creatinine 12/14/2025 12/14/2024, 07/2024, 06/09/2023, Additional history exists Imm-DTaP/Tdap/Td (3 - Td [...] Pressure < 130/80 Blood Pressure HTN (hypertension) 118/74(2024 9:17 AM EDT) No Nicki Riley, PharmNatalya HEMOGLOBIN A1C < 7.0 Result Component Diabetes mellitus ([facility]) 7.7( 11:22 AM EDT) No Nicki Riley, Aruna Procedures Procedure Name Priority Date/Time Associated Diagnosis Comments OTHER ORDERS SCANNED DOCUMENT 12/23/2024 3:00 AM EDT COMPREHENSIVE METABOLIC PANEL Routine 12/14/2024 11:22 AM EDT Type 2 diabetes mellitus with hyperglycemia, with long-term current use of insulin ([facility]) HEMOGLOBIN GLYCOSYLATED A1C Routine 12/14/2024 11:22 AM EDT Type 2 diabetes mellitus with hyperglycemia, with long-term current use of insulin ([facility]) URINALYSIS, MULTISTIX (POCT) Routine 12/14/2024 10:07 AM EDT Type 2 diabetes mellitus with hyperglycemia, with long-term current use of insulin ([facility]) GLUCOSE, BLOOD BY GLUCOSE MONITORING DEVICE (CLIA WAIVED)POCT Routine 12/14/2024 9:31 AM EDT Type 2 diabetes mellitus with hyperglycemia, with long-term current use of insulin ([facility]) OTHER ORDERS SCANNED DOCUMENT 12/08/2024 3:00 AM EST REFERRAL SCANNED DOCUMENT 11/14/2024 3:00 AM EST REFERRAL SCANNED DOCUMENT 10/25/2024 3:00 AM EST OTHER ORDERS SCANNED DOCUMENT 10/21/2024 3:00 AM EST OTHER ORDERS SCANNED DOCUMENT 10/21/2024 3:00 AM EST HEALTH HISTORY SCANNED DOCUMENT 10/18/2024 3:00 AM EST REFERRAL FOR MAMMOGRAM Routine 07/12/2024 3:00 AM EDT Encounter for screening mammogram for malignant neoplasm of breast EYE EXAM 06/09/2024 3:00 AM EDT TSH W/RFLX FREE T4 Routine 05/10/2024 1: 19 PM EDT Acquired hypothyroidism LIPID PANEL Routine 03/14/2024 3:16 PM EDT Diabetes mellitus without complication ([facility]) Type 2 diabetes mellitus without complications ([facility]) Annual physical exam Screening due MICROALBUMIN/CREATINI NE RATIO, URINE, RANDOM Routine 03/14/2024 3:16 PM EDT Diabetes mellitus without complication ([facility]) Type 2 diabetes mellitus without complications ([facility]) BITEWINGS - FOUR RADIOGRAPHIC IMAGES Routine 03/03/2024 [...] Insulin dependent type 2 diabetes mellitus, uncontrolled ([facility]) HEPATITIS C AB W/RFLX HCV RNA, QT, RT PCR Routine 07/08/2021 10:28 AM EDT Insulin dependent type 2 diabetes mellitus, uncontrolled ([facility]) Other problems related to lifestyle HISTORIC COLONOSCOPY 06/25/2021 12:00 AM EDT from Last 3 Months or Most Recently Relevant to Health Maintenance Results * OTHER ORDERS SCANNED DOCUMENT (12/23/2024 3:00 AM EDT) Only the most recent of4 resultswithin the time period is included. 12/23/2024 3:00 AM EDT Coy HENSON SCAN OTHER ORDERS Final Result * (ABNORMAL) HEMOGLOBIN GLYCOSYLATED A1C (12/14/2024 11:22 AM EDT) HEMOGLOBIN A1C 7.7(H) <5.7 % of total Hgb [facility] Comment: For someone without known diabetes, a [...] for diagnosis of diabetes for children. ?? Blood Blood / Unknown 12/14/2024 1 1:22 AM EDT 12/14/2024 11:23 AM EDT Narrative [facility] - 12/15/2024 8:28 AM EDT FASTING:NO Chidi Aleman [facility] - BLOOD DRAW Edited R esult - Final [facility] [address] [address], [facility] [address] [phone] * COMPREHENSIVE METABOLIC PANEL (12/14/2024 11:22 AM EDT) [facility] GLUCOSE 131 65 - 139 mg/dL [facility] Comment: ?Non-fasting reference interval UREA NITROGEN (BUN) 10 7 - 25 mg/dL [facility] CREATININE (blood) 0.69 0.50 - 1.03 mg/dL [facility] EGFR 104 > OR = 60 mL/min/1. 73m2 [facility] BUN/CREATININE RATIO SEE NOTE: [facility] Comment: ?? Not Reported: BUN and Creatinine are within ?? reference range. ? SODIUM 139 135 - 146 mmol/L [facility] POTASSIUM 4.5 3.5 - 5.3 mmol/L [facility] CHLORIDE 104 98 - 110 mmol/L [facility] CARBON DIOXIDE 26 20 - 32 mmol/L [facility] CALCIUM 9.9 8.6 - 10.4 mg/dL [facility] PROTEIN, TOTAL 7.4 6.1 - 8.1 g/dL [facility] ALBUMIN 4.8 3.6 - 5.1 g/dL [facility] GLOBULIN 2.6 1.9 - 3.7 g/dL (calc) [facility] ALBUMIN/GLOBULI N RATIO 1.8 1.0 - 2.5 (calc) [facility] BILIRUBIN, TOTAL 0.2 0.2 - 1.2 mg/dL [facility] ALKALINE PHOSPHATASE 50 37 - 153 U/L [facility] AST 14 10 - 35 U/L [facility] ALT 26 6 - 29 U/L [facility] Blood Blood / Unknown 12/14/2024 1 1:22 AM EDT 12/14/2024 11:23 AM EDT Narrative [facility] - 12/15/2024 8:28 AM EDT FASTING:NO Chidi Aleman [employer] [facility] [facility] - BLOOD DRAW Final Re sult Performing Organization Address City/State/[facility] Co de Phone Number [facility] [address] [address], [place] [address] [phone] * URINALYSIS, MULTISTIX (POCT) (12/14/2024 10:07 AM EDT) URINE GLUCOSE 300-500 (2+) NEGATIVE [facility] POCT URINE BILIRUBIN NEGATIVE NEGATIVE [facility] POCT URINE KETONES NEGATIVE NEGATIVE [facility] POCT URINE SPECIFIC GRAVITY 1.015 <=1.005 - >=1.030 [facility] POCT URINE BLOOD NEGATIVE NEGATIVE [facility] POCT URINE PH 5.5 5.0 - 8.5 [facility] POCT URINE PROTEIN Negative Negative [facility] POCT URINE UROBILINOGEN 0.2 0.2 - 1.0 E.U./dL [facility] POCT URINE NITRITE NEGATIVE NEGATIVE [facility] POCT URINE LEUKOCYTES NEGATIVE NEGATIVE [facility] PO[facility] URINE COLOR LIGHT YELLOW STRAW, YELLOW [facility] PO[facility] ODOR URINE Normal Normal [facility] POCT CLARITY OF URINE CLEAR CLEAR [facility] POCT Urine Urine specimen / Unknown 12/14/2024 10:07 AM EDT Chidi Ash [employer] [facility] - NO BLOOD DRAW Final Result [facility]- BACK OFFICE POCT * (ABNORMAL) GLUCOSE, BLOOD BY GLUCOSE MONITORING DEVICE (CLIA WAIVED)POCT (12/14/2024 9:31 AM EDT) GLUCOSE 300(A) 70 - 100 mg/dL [facility] POCT Capillary Blood Blood / Unknown 9:31 AM EDT Chidi Ash [employer] [facility] [facility] - BLOOD DRAW Final Re sult [facility]- BACK OFFICE POCT * REFERRAL SCANNED DOCUMENT (11/14/2024 3:00 AM EST) Only the most recent of2 resultswithin the time period is included. 11/14/2024 3:00 AM EST Coy HENSON SCAN REFERRAL Final Result * HEALTH HISTORY SCANNED DOCUMENT (10/18/2024 3:00 AM EST) 10/18/2024 3:00 AM EST [facility] Provider Default SCAN OTHER ORDERS Final Re sult * REFERRAL FOR MAMMOGRAM (07/12/2024 3:00 AM EDT) 07/12/2024 3:00 AM EDT Coy HENSON IMG RFL MAMMO Final Result * EYE EXAM (06/09/2024 3:00 AM EDT) 06/09/2024 3:00 AM EDT Coy HENSON OTHER Edited Result - Final * TSH W/RFLX FREE T4 (05/10/2024 1:19 PM EDT) TSH W/REFLEX TO FT4 1.05 0.40 - 4.50 mIU/L [facility] Comment: ?Reference Range ?> or = 20 Years ??0.40-4.50 ? Ranges ?First trimester ?0.26-2.66 ?Second trimester ?? 0.55-2.73 ?Third trimester ?0.43-2.91 Blood Blood / Unknown 05/10/2024 1 :19 PM EDT 05/10/2024 1:20 PM EDT Narrative [facility] - 05/11/2024 6:38 AM EDT FASTING:NO Franchesca Roberts PA-C LAB - BLOOD DRAW Final Resu lt [facility] [address] [place] [id number], [facility] [address] [phone] * MICROALBUMIN/CREATININE RATIO, URINE, RANDOM (03/14/2024 3:16 PM EDT) CREATININE, RANDOM URINE 67 20 - 275 mg/dL [facility] MICROALBUMIN <0.2 mg/dL [facility] Comment: Reference Range Not established MICROALBUMIN/CREA TININE RATIO, RANDOM URINE NOTE <30 [employer] Comment: NOTE: The urine albumin value is [...] - NO BLOOD DRAW Final R esult [facility] [address] [place] [id number], [facility] [address] [place] [phone] * (ABNORMAL) LIPID PANEL (03/14/2024 3:16 PM EDT) CHOLESTEROL, TOTAL 136 <200 mg/dL [facility] HDL CHOLESTEROL 43(L) > OR = 50 mg/dL [facility] TRIGLYCERIDES 212(H) <150 mg/dL [facility] Comment: If a non-fasting specimen was collected, consider repeat triglyceride testing on a fasting specimen if clinically indicated. Pallavi et al. J. of Clin. Lipidol. 2015;9:129-169. LDL-CHOLESTEROL 65 99 mg/dL (calc) [facility] Comment: Reference range: <100 Desirable range <100 mg/dL for primary prevention; ?? <70 mg/dL for patients with CHD or diabetic patients with > or = 2 CHD risk factors. LDL-C is now calculated using the Aravind-Uriel calculation, which is a validated novel method providing better accuracy than the Friedewald equation in the estimation of LDL-C. Aravind SS et al. ROSINA. 2013;310(19): 2040-5707 (http://education.Rawporter/faq/ZCT402) CHOL/HDLC RATIO 3.2 <5.0 (calc) [facility] NON-HDL CHOLESTEROL 93 <130 mg/dL (calc) [facility] Comment: For patients with diabetes plus 1 major ASCVD risk factor, treating to a non-HDL-C goal of <100 mg/dL (LDL-C of <70 mg/dL) is considered a therapeutic option. Blood Blood / Unknown 03/14/2024 3 :16 PM EDT 03/14/2024 3:17 PM EDT Franchesca Roberts PA-C LAB - BLOOD DRAW Final Resu lt Performing Organization Address [facility] Co de Phone Number Yillio [address] [address], [facility] [address] [phone] * HEPATITIS C AB W/RFLX HCV RNA, QT, RT PCR (07/08/2021 10:28 AM EDT) Pathologist [facility] HEPATITIS C ANTIBODY NON-REACT THERESA NON-REACT THERESA Yillio [facility] SIGNAL TO CUT-OFF 0.01 <1.00 [facility] Comment: HCV antibody was non-reactive. There is no laboratory evidence of HCV infection. In most cases, no further action is required. However, if recent HCV exposure is suspected, a test for HCV RNA (test code 57438) is suggested. For additional information please refer to http://education.PowerPlay Mobile/faq/MXT33w5 (This link is being provided for informational/ educational purposes only.) Blood Blood / Unknown 07/08/2021 1 0:28 AM EDT 07/08/2021 10:29 AM EDT Chidi Aleman AUTOMATIC I THREADING MACHINE FEEDER LAB - BLOOD DRAW Edited R esult - Final Performing Organization Address [facility] Co de Phone Number Yillio [address] [address], [facility] [address],[facility] [place] [address] * HIV 1/2 AG & AB W/RFLX (4TH GEN) (07/08/2021 10:28 AM EDT) HIV AG/AB, 4TH GEN NON-REAC TIVE NON-REAC TIVE Yill[facility] Comment: HIV-1 antigen and HIV-1/HIV-2 antibodies were [...] ?? For additional information please refer to http://education.PowerPlay Mobile/faq/BCR601 (This link is being provided for informational/ educational purposes only.) The performance of this assay has not been clinically validated in patients less than 2 years old. Blood Blood / Unknown 07/08/2021 1 0:28 AM EDT 07/08/2021 10:29 AM EDT Chidi DREWP LAB - BLOOD DRAW Final Re sult Yillio [facility] [address] [address], [facility] [address] [address] * HISTORIC COLONOSCOPY (06/25/2021 12:00 AM EDT) 06/25/2021 Coy HENSON PROCEDURES Final Result from Last 3 Months or Most Recently Relevant to Health Maintenance Insurance [place] D[place] [facility] [place] Care Teams Dag Sprayer Relationship Specialty Start Date End Date Coy Adhikari PA [address] [place] [address] PCP - General Internal Medicine 04/10/17
--- OUTSIDE RECORDS SUMMARY | 2025-01-10 06:36 | XMS_ITS | Clinical Summary ---
Author Organization Patient Business Ser [facility] Address [address] [place] [address] Care Team Providers Care Director Medicaid Name Role Phone Brosnon Adhikari Primary Care Provider [phone] Social History Tobacco Use Types Packs/Day Years Used Date Smoking Tobacco: Former Smokeless Tobacco: Never Comments Unknown Sex and Gender Information Value Date Recorded Sex Assigned at Not on file Legal Sex Female 3:44 AM EDT Gender Identity Not on file Sexual Orientation [...] 05/23/2020 Social Influencers of Health Screening 05/23/2020 Pneumococcal Vaccine: 50+ Years (1 of 1 - PCV) 2020 Zoster Vaccines (1 of 2) 2020 COVID-19 Vaccine ( season) 2024 Influenza Vaccine (Season Ended) 2025 Breast Cancer Screening 07/13/2026 07/13/20 24, 07/10/2023, [...] patient's age to complete this topic Meningococcal B Vaccine Aged Out No l onger eligible based on patient's age to complete [...] Procedure Name Priority Date/Time Associated Diagnosis Comments [facility] SCREENING DIGITAL Routine 07/13/2024 8:15 AM EDT Encounter for screening mammogram for malignant neoplasm of breast from Last 3 Months or Most Recently Relevant to Health Maintenance Results * [facility] SCREENING DIGITAL (07/13/2024 8:15 AM EDT) Anatomical Region Laterality Modality Mammography 07/12/2024 3:17 PM EDT Narrative 07/13/2024 8:15 AM EDT [facility] Diagnostic Imaging Department [address] [place] [address] Patient: ??COREEN JONAS ?/Age/Sex: 1970 - 53 - F Unit#: ??[id number] ? Location/Status: ??SPDIMAM/REG CLI ? Mnemonic/Ordering Site: ??DIGSC/SPMAM Ordering Physician: ??BRONSON ADHIKARI [facility] Screening Digital - 07/12/24 - 1530 Report Status:Signed EXAM: [facility] Screening Digital EXAM DATE AND TIME: 07/12/2024 3:31 PM HISTORY: ??Screening. COMPARISON: ??07/10/23, 07/07/22, 07/05/21 TECHNIQUE: Bilateral digital breast tomosynthesis was performed in the CC and MLO projections. Computer aided detection with [employer] 3D 3.1 was employed. TISSUE DENSITY: b. [...] Mammogram performed at [facility] [place] [address] Dictating Physician: ??FLOR BROTHERS MD Electronically Signed by: ??FLOR BROTHERS MD Dic Date/Time: ??07/13/24813 Sign date/Time: ??07/13/24814 Procedure Note Flor Brothers MD - 08/02/2024 [facility] Diagnostic Imaging Department [address] [place] [address] Patient: STORM DAVISCOREEN./Age/Sex: 1970 - 53 - F Unit#: [id number] Location/Status: SPDIMAM/REG CLI Mnemonic/Ordering Site: [facility] Ordering Physician: BRONSON ADHIKARI [facility] Screening Digital - 07/12/24 - 1530 Report Status:Signed EXAM: [facility] Screening Digital EXAM DATE AND TIME: 07/12/2024 3:31 PM HISTORY: Screening. COMPARISON: 07/10/23, 07/07/22, 07/05/21 TECHNIQUE: Bilateral digital breast tomosynthesis was performed in the CCand MLO projections. Computer aided detection with [employer] - Tuto.[employer]car 3D 3.1was employed. TISSUE DENSITY: b. There [...] Mammogram performed at [facility] [place] [address] Dictating Physician: FLOR BROTHERS MD Electronically Signed by: FLOR BROTHERS MD Dic Date/Time: 07/13/24813 Sign date/Time: 07/13/24814 Bronson HENSON IMG BI PROCEDURES Final Result from Last 3 Months or Most Recently Relevant to Health Maintenance Advance Directives Documents on File Type Date Recorded Patient Consumer Analyst Expl anation Health Care Decision (hx) 08/24/2015 [...] (hx) 08/21/2015 AD ARRIAGA DIRECTIVE Care Teams Director Medicaid Relationship Specialty Start Date End Date Bronson Adhikari PA [address] [place] [address] PCP - General Internal Medicine 03/11/19
== END 2025-01-10 06:33 | disposition home or self-care (01) ==
LOC: CF 06:32
PROVIDERS: Visit Provider Anesthesiology
DX: M25.551 Pain in right hip (principal); M16.11 Unilateral primary osteoarthritis, right hip
CPT/HCPCS: 20610; 77002; J2003; J2795; J3301; Q9967

== ENCOUNTER 2025-01-10 14:31 | Outpatient (AMB) | payer MEDICARE, MEDICAID, SELFPAY ==
[2025-01-10 14:36] VITALS: BP 106/58; PULSE 86; RESP 16; O2SAT 97
--- NOTE | 2025-01-10 14:36 | A.OFFVIS_ITS ---
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 And Former Required: No Allergies oxycodone Allergy (Severe, Verified 01/10/25 14:36) Anaphylaxis Penicillins Adverse Reaction (Severe, Verified 01/10/25 14:36) rash Medication List - Last Reconciled 01/10/25 by Regina Dhillon LPN albuterol sulfate 90 mcg/actuation (Ventolin HFA) 2 puffs inhalation Q4-6H PRN aspirin mg PO bupropion HCl XL mg PO buspirone 10 mg PO BID cetirizine 10 mg PO DAILY clonazepam 1 mg PO BEDTIME PRN diclofenac sodium 1% topical empagliflozin (Jardiance) 10 mg PO DAILY estradiol 1 patch transdermal QWEEK famotidine 40 mg PO DAILY ferrous sulfate 325 mg PO QAM fluticasone furoate 100 mcg/actuation (Arnuity Ellipta) 1 inh inhalation DAILY gabapentin 100 mg PO TID insulin glargine (Lantus Solostar U-100 Insulin) 10 units subcut QPM insulin glargine-yfgn (Semglee (insulin glargine-yfgn) Pen) 10 units subcut JEANNE Y levothyroxine 125 mcg PO DAILY lidocaine 5% 1 patch topical DAILY linaclotide (Linzess) mcg PO QAM lisinopril 40 mg PO DAILY lorazepam 1 mg PO BID meclizine 25 mg PO BID PRN metformin 1,000 mg PO BID nabumetone (Relafen DS) 500 mg PO DAILY naltrexone 25 mg PO DAILY naproxen mg PO pantoprazole 40 mg PO DAILY rosuvastatin 40 mg PO DAILY semaglutide (Ozempic) mg subcut sucralfate PO zolpidem 10 mg PO BEDTIME PRN PFSH Medical History GERD (gastroesophageal reflux disease) Fibromyalgia Hypertension Asthma T2DM (type 2 diabetes mellitus) Uterine fibroid Hypothyroidism JUAREZ (obstructive sleep apnea) Lipoma of back Diverticulitis PTSD (post-traumatic stress disorder) Physical Exam Vital Signs: Last Vital Signs Pulse 81 01/10/25 14:50 Resp 16 01/10/25 14:50 BP 80/68 L 01/10/25 14:50 Pulse Ox 98 01/10/25 14:50 Oxygen Delivery Method Room Air 01/10/25 14:50 Assessment & Plan Assessment & Plan (1) Osteoarthritis of hips, bilateral: Code(s): M16.0 - Bilateral primary osteoarthritis of hip Category: Medical (2) Right hip pain: Code(s): M25.551 - Pain in right hip Category: Medical Plan Intra-articular right hip steroid injection. Informed consent was explained to the patient. All questions were explained and? answered. The patient was taken inside the operating room where she was positioned left lateral decubitus on the operating table.? Time-out was performed delineating correct site, side, the nature of the procedure, patient's allergy, preoperative antibiotic if needed.? All operating room staff was participating in OR time-out procedure.? The patient stated his name. Non dependent right hip was prepped with ChloraPrep and draped with sterile towels.? The C-arm was brought over the operating field and the picture of bilateral hip joints were obtained on the screen.? The right hip joint was chosen as the target for the injection.? The trochanter position was noted on the screen.? The projection of the trochanter to the skin was noted, the direction of the femoral neck was noted.? The skin was anesthetized using 2% lidocaine at the trochanter area.? 22 gauge 5 in needle was inserted through the skin and advanced to the hip joint silhouette on under intermittent lateral and anterior posterior views.? When needle entered the Silhouette of the joint injection of the contrast Omnipaque was performed demonstrating intra-articular spread of the contrast.? After that 4 cc of ropivacaine 0.5% mixed with Kenalog 40 mg was injected into the area.?,upon completion of the procedure the needle was removed and Band-Aid was applied. Orders: Orders FL guidance in treatment room 01/10/25 M25.551 - Pain in right hip Coding Level of Care Code Procedure Only Diagnoses Osteoarthritis of hips, bilateral M16.0 Right hip pain M25.551
[2025-01-10 14:50] VITALS: BP 80/68; PULSE 81; RESP 16; O2SAT 98
--- OUTSIDE RECORDS SUMMARY | 2025-01-10 17:40 | XMS_ITS | Clinical Summary ---
Author Organization Patient Business Ser [facility] [place] Address [address] [place] [address] Care Team Providers Care Litharge Supervisor Name Role Phone Bronson Adhikari Primary Care Provider [phone] Social History Tobacco Use Types Packs/Day Years [...] Procedure Name Priority Date/Time Associated Diagnosis Comments [facility] SCREENING DIGITAL Routine 07/13/2024 8:15 AM EDT Encounter for screening mammogram for malignant neoplasm of breast from Last 3 Months or Most Recently Relevant to Health Maintenance Results * [facility] SCREENING DIGITAL (07/13/2024 8:15 AM EDT) Anatomical Region Laterality Modality Mammography 07/12/2024 3:17 PM EDT Narrative 07/13/2024 8:15 AM EDT [facility] Diagnostic Imaging Department [address] [place] [address] Patient: ??COREEN JONAS ?/Age/Sex: 1970 - 53 - F Unit#: ??[id number] ? Location/Status: ??SPDIMAM/REG CLI ? Mnemonic/Ordering Site: ??DIGSC/SPMAM Ordering Physician: ??BRONSON ADHIKARI [facility] Screening Digital - 07/12/24 - 1530 Report Status:Signed EXAM: [facility] Screening Digital EXAM DATE AND TIME: 07/12/2024 3:31 PM HISTORY: ??Screening. COMPARISON: ??07/10/23, 07/07/22, 07/05/21 TECHNIQUE: Bilateral digital breast tomosynthesis was performed in the CC and MLO projections. Computer aided detection with [employer] 3D 3.1 was employed. TISSUE DENSITY: b. [...] Mammogram performed at [facility] [place] [address] Dictating Physician: ??FLOR BROTHERS MD Electronically Signed by: ??FLOR BROTHERS MD Dic Date/Time: ??07/13/24813 Sign date/Time: ??07/13/24814 Procedure Note Flor Brothers MD - 08/02/2024 [facility] Diagnostic Imaging Department [address] [place] [address] Patient: STORM DAVISCOREEN./Age/Sex: 1970 - 53 - F Unit#: [id number] Location/Status: SPDIMAM/REG CLI Mnemonic/Ordering Site: [facility] Ordering Physician: BRONSON ADHIKARI [facility] Screening Digital - 07/12/24 - 1530 Report Status:Signed EXAM: [facility] Screening Digital EXAM DATE AND TIME: 07/12/2024 3:31 PM HISTORY: Screening. COMPARISON: 07/10/23, 07/07/22, 07/05/21 TECHNIQUE: Bilateral digital breast tomosynthesis was performed in the CCand MLO projections. Computer aided detection with [employer].comD [employer] 3D 3.1was employed. TISSUE DENSITY: b. There [...] Mammogram performed at [facility] [place] [address] Dictating Physician: FLOR BROTHERS MD Electronically Signed by: FLOR BROTHERS MD Dic Date/Time: 07/13/24813 Sign date/Time: 07/13/24814 Bronson HENSON IMG BI PROCEDURES Final Result from Last 3 Months or Most Recently Relevant to Health Maintenance Advance Directives Documents on File Type Date Recorded Patient Web Mobile Designer Expl anation Health Care Decision (hx) 08/24/2015 [...] (hx) 08/21/2015 AD ARRIAGA DIRECTIVE Care Teams Litharge Supervisor Relationship Specialty Start Date End Date Bronson Adhikari PA [address] [place] [address] PCP - General Internal Medicine 03/11/19
--- OUTSIDE RECORDS SUMMARY | 2025-01-10 17:40 | XMS_ITS | Clinical Summary ---
Author Organization [facility] Address [address] [place] [address] Care Team Providers Care Senior Java Software Engineer Name Role Phone Coy Adhikari Primary Care Provider [phone] Source Comments PLEASE NOTE, if this patient [...] coma, with long-term current use of insulin ([facility]),Routine adult health maintenance USE DIRECTED [...] asthma, unspecified asthma severity, unspecified whether persistent ([facility]) INHALE 2 PUFFS INTO THE LUNGS EVERY 4 (FOUR) HOURS NEEDED FOR SHORTNESS OF BREATH OR WHEEZING 18 Each 3 024 Active blood sugar diagnostic (FREESTYLE TEST) stripsIndications:Type 2 diabetes mellitus without complications ([facility]) as needed for high blood sugar Check glucose once daily 100 Each 5 024 Active alcohol swabsIndications:Contro lled type 2 diabetes mellitus without complication, unspecified whether long filler cigar roller machine insulin use ([facility]) APPLY TO AFFECTED AREA TWICE [...] asthma, unspecified asthma severity, unspecified whether persistent ([facility]) INHALE 1 PUFF INTO THE LUNGS DAILY [...] 1,000 mg tabletIndications:Diabe karolyn mellitus without complication ([facility]) TAKE 1 TABLET BY MOUTH [...] x 5/16 ndleIndications:Diabete s mellitus without complication ([facility]) USE ONCE DAILY DIRECTED 100 Each 1 025 Active sucralfate (CARAFATE) 1 gram tabletIndications:Acute gastritis without hemorrhage, unspecified gastritis type TAKE 1 TABLET BY MOUTH EVERY DAY 90 Tablet 1 025 Active insulin glargine 100 unit/mL (3 mL) penIndications:Severe obesity ([facility]),Type 2 diabetes mellitus with hyperglycemia, with long-term current use of insulin ([facility]) Inject 35 Units into the skin nightly at bedtime 10.5 mL 11 025 2025 Active estradioL (CLIMARA) 0.1 mg/24 hr patch APPLY 1 PATCH TOPICALLY ONCE WEEKLY 12 Patch 5 025 Active JARDIANCE 10 mg tabIndications:Type 2 diabetes mellitus without complications ([facility]) TAKE 1 TABLET BY MOUTH EVERY DAY [...] hyperglycemia, with long-term current use of insulin ([facility]) Inject 2.5 mg into the skin once a week 2 mL 025 Active tirzepatide (MOUNJARO) 5 mg/0.5 mL pnijIndications:Type 2 diabetes mellitus with hyperglycemia, with long-term current use of insulin ([facility]) Inject 5 mg into the skin once a week After one month 2 mL 1 025 Active barium sulfate (READI-CAT 2 ORAL) See Instructions, Dispense 2 bottles of 450 mL. Drink 1 bottle completely 3-4 hours prior to appointment. Drink 2nd bottle completely 1 hr prior to appointment., # 900 mL, 0 Refills, Maintenance, 05/28/23 12:00:00 EDT, [facility]/pharmacy #[id number], Partial fill... 023 2024 Disconti nued(The rapy complete d/Not needed) insulin glargine (LANTUS SOLOSTAR U-100 INSULIN) 100 unit/mL (3 mL) penIndications:Diabetes mellitus without complication ([facility]) INJECT 35 UNITS INTO THE SKIN DAILY 30 mL 2 024 2024 Disconti nued(Dup licate (E-Cance l Not Sent)) insulin glargine-yfgn (SEMGLEE,INSULIN GLARG-YFGN,PEN) 100 unit/mL (3 mL) inpnIndications:Type 2 diabetes mellitus without complications ([facility]) INJECT 35 UNITS INTO THE SKIN DAILY [...] hyperglycemia, with long-term current use of insulin ([facility]),Primary hypertension INJECT 1MG INTO THE SKIN ONCE A WEEK 9 mL 1 024 2024 Disconti nued(The rapy complete d/Not needed) semaglutide (OZEMPIC) 2 mg/dose (8 mg/3 mL) pen injectorIndications:Typ e 2 diabetes mellitus with hyperglycemia, with long-term current use of insulin ([facility]),Severe obesity ([facility]) INJECT 2 MG INTO THE SKIN ONCE A WEEK. 6 mL 2 025 2024 Disconti nued(Pat cecy garza ce) Active Problems Problem Noted Date Diagnosed Date Class 1 obesity due to exces s calories without serious comorbidity with body mass index (BMI) of 31.0 to 31.9 in adult 12/14/2024 Moderate episode of recurren t major depressive disorder ([facility]) 12/14/2024 Anxiety 05/05/2024 Mild episode of recurrent ma stepan depressive disorder ([facility]) 05/05/2024 History of MRI [...] Moderate glaucoma- stable. Cataract- monitor Diabetes mellitus ([facility]) 11/14/2016 Fibromyalgia 09/04/2016 Asthma ([facility]) 02/08/2016 HTN (hypertension) 12/25/2015 Overview (12/11/2022): Takes [...] Date Chest pain 05/05/2022 03/30/2023 Severe obesity ([facility]) 12/25/201509/2025 Overview (10/07/2023): Not motivated to lose weight Encounters Date Type Department Care Team Description 12/26/2024 1:00 PM EDT / Visits [facility] [address] [place] [phone] Shaw Mas LCSW Major depressive disorder, recurrent episode with anxious distress ([facility]) (Primary Dx) 12/14/2024 9:00 AM EDT Office Visit [id number] [place] [phone] Chidi Aleman FNP Type 2 diabetes mellitus with hyperglycemia, with long-term current use of insulin ([facility]) (Primary Dx); Polypharmacy; Low back pain, unspecified back pain laterality, unspecified chronicity, unspecified whether sciatica present; Class 1 obesity due to excess calories without serious comorbidity with body mass index (BMI) of 31.0 to 31.9 in adult; Moderate episode of recurrent major depressive disorder ([facility]) 12/08/2024 2:00 PM EST / Visits [facility] [address] [place] [phone] Ladonna Sousa, Shanice Aguilar PTSD (post-traumatic stress [...] Telemedicine Visit [facility] [address] [place] [phone] Alek Quiroz, PharmD [address] [place] [address] 01/24/2025 1:45 PM EDT BH/MH Visits [facility] [address] [place] [phone] Shaw Mas, ENERGY ASSISTANT [address] [place] [address] 03/09/2025 2:00 PM EDT BH/MH Visits [address] [phone] Ladonna Sousa, PMHNP [address] [place] [address] Shanice Fajardo [address] [place] [address] Health Maintenance Due Date Last Done Comments Anxiety Screening 1970 Dental FMX/Pano 1970 Dental Perio Charting 1970 HPV Screening 1970 Pap + HPV 1970 CT Colonography 01/01/2016 FIT/gFOBT 01/01/2016 Fecal DNA 01/01/2016 Flexible Sigmoidoscopy 01/01/2016 Pap Smear 01/06/2019 01/07/2016 (Rebecca ruiz by Outside Provider) [id number] ( season) 2024 Depression Monitoring 06/14/2024 03/14/2024 [...] A1C < 7.0 Result Component Diabetes mellitus ([facility]) 7.7( 11:22 AM EDT) No Nicki Riley, Aruna Procedures Procedure Name Priority Date/Time Associated Diagnosis Comments OTHER ORDERS SCANNED DOCUMENT 12/23/2024 3:00 AM EDT COMPREHENSIVE METABOLIC PANEL Routine 12/14/2024 11:22 AM EDT Type 2 diabetes mellitus with hyperglycemia, with long-term current use of insulin ([facility]) HEMOGLOBIN GLYCOSYLATED A1C Routine 12/14/2024 11:22 AM EDT Type 2 diabetes mellitus with hyperglycemia, with long-term current use of insulin ([facility]) URINALYSIS, MULTISTIX (POCT) Routine 12/14/2024 10:07 AM EDT Type 2 diabetes mellitus with hyperglycemia, with long-term current use of insulin ([facility]) GLUCOSE, BLOOD BY GLUCOSE MONITORING DEVICE (CLIA WAIVED)POCT Routine 12/14/2024 9:31 AM EDT Type 2 diabetes mellitus with hyperglycemia, with long-term current use of insulin ([facility]) OTHER ORDERS SCANNED DOCUMENT 12/08/2024 3:00 AM [...] 3:16 PM EDT Diabetes mellitus without complication ([facility]) Type 2 diabetes mellitus without complications ([facility]) Annual physical exam Screening due MICROALBUMIN/CREATINI NE RATIO, URINE, RANDOM Routine 03/14/2024 3:16 PM EDT Diabetes mellitus without complication ([facility]) Type 2 diabetes mellitus without complications ([facility]) BITEWINGS - FOUR RADIOGRAPHIC IMAGES Routine 03/03/2024 [...] Insulin dependent type 2 diabetes mellitus, uncontrolled ([facility]) HEPATITIS C AB W/RFLX HCV RNA, QT, RT PCR Routine 07/08/2021 10:28 AM EDT Insulin dependent type 2 diabetes mellitus, uncontrolled ([facility]) Other problems related to lifestyle HISTORIC COLONOSCOPY [...] A1C 7.7(H) <5.7 % of total Hgb [facility] Comment: For someone without known diabetes, a [...] AM EDT 12/14/2024 11:23 AM EDT Narrative [email or web address] - 12/15/2024 8:28 AM EDT FASTING:NO Chidi Aleman [facility] - BLOOD DRAW Edited R esult - Final [email or web address] [address] [address], [facility] [address] [address] * COMPREHENSIVE METABOLIC PANEL (12/14/2024 11:22 AM EDT) [facility] GLUCOSE 131 65 - 139 mg/dL [facility] Comment: ?Non-fasting reference interval UREA NITROGEN (BUN) 10 7 - 25 mg/dL [facility] CREATININE (blood) 0.69 0.50 - 1.03 mg/dL [facility] EGFR 104 > OR = 60 mL/min/1. 73m2 [facility] BUN/CREATININE RATIO SEE NOTE: [facility] Comment: ?? Not Reported: BUN and Creatinine are within ?? reference range. ? SODIUM 139 135 - 146 mmol/L [facility] POTASSIUM 4.5 3.5 - 5.3 mmol/L [facility] CHLORIDE 104 98 - 110 mmol/L [facility] CARBON DIOXIDE 26 20 - 32 mmol/L [facility] CALCIUM 9.9 8.6 - 10.4 mg/dL [facility] PROTEIN, TOTAL 7.4 6.1 - 8.1 g/dL [facility] ALBUMIN 4.8 3.6 - 5.1 g/dL [facility] GLOBULIN 2.6 1.9 - 3.7 g/dL (calc) [facility] ALBUMIN/GLOBULI N RATIO 1.8 1.0 - 2.5 (calc) [facility] BILIRUBIN, TOTAL 0.2 0.2 - 1.2 mg/dL [facility] ALKALINE PHOSPHATASE 50 37 - 153 U/L [facility] AST 14 10 - 35 U/L [facility] ALT 26 6 - 29 U/L [facility] Blood Blood / Unknown 12/14/2024 1 1:22 AM EDT 12/14/2024 11:23 AM EDT Narrative [facility] - 12/15/2024 8:28 AM EDT FASTING:NO Chidi Aleman [facility] - BLOOD DRAW Final Re sult Performing Organization Address City/State/[facility] Co de Phone Number [facility] [address] [address], [facility] [address] [phone] * URINALYSIS, MULTISTIX (POCT) (12/14/2024 10:07 AM [...] Unknown 12/14/2024 10:07 AM EDT Chidi Ash OUTSIDE LABOR[facility] LAB - NO BLOOD DRAW Final Result [facility] POCT * (ABNORMAL) GLUCOSE, BLOOD BY GLUCOSE MONITORING DEVICE (CLIA WAIVED)POCT (12/14/2024 9:31 AM EDT) GLUCOSE 300(A) 70 - 100 mg/dL [facility] POCT Capillary Blood Blood / Unknown 9:31 AM EDT Chidi Ash OUTSIDE LABOR[facility] LAB - BLOOD DRAW Final Re sult [facility] POCT * REFERRAL SCANNED DOCUMENT (11/14/2024 3:00 AM EST) Only the most recent of2 resultswithin the time period is included. 11/14/2024 3:00 AM EST Coy HENSON SCAN REFERRAL Final Result * HEALTH HISTORY SCANNED DOCUMENT (10/18/2024 3:00 AM EST) 10/18/2024 3:00 AM EST [facility] Provider Default SCAN OTHER ORDERS Final [...] TO FT4 1.05 0.40 - 4.50 mIU/L [facility] Comment: ?Reference Range ?> or = 20 Years ??0.40-4.50 ? Ranges ?First trimester ?0.26-2.66 ?Second trimester ?? 0.55-2.73 ?Third trimester ?0.43-2.91 Blood Blood / Unknown 05/10/2024 1 :19 PM EDT 05/10/2024 1:20 PM EDT Narrative [email or web address] - 05/11/2024 6:38 AM EDT FASTING:NO Franchesca Roberts PA-C LAB - BLOOD DRAW Final Resu lt [facility] [employer] [address] [place] [address], [facility] [address] [address] * MICROALBUMIN/CREATININE RATIO, URINE, RANDOM (03/14/2024 3:16 PM EDT) CREATININE, RANDOM URINE 67 20 - 275 mg/dL [facility] MICROALBUMIN <0.2 mg/dL [facility] [employer] [facility] Comment: Reference Range Not established MICROALBUMIN/CREA TININE RATIO, RANDOM URINE NOTE <30 [employer] Comment: NOTE: The urine albumin value is [...] - NO BLOOD DRAW Final R esult [email or web address] [address] [place] [id number], [facility] [address] [place] [phone] * (ABNORMAL) LIPID PANEL (03/14/2024 3:16 PM EDT) CHOLESTEROL, TOTAL 136 <200 mg/dL [facility] HDL CHOLESTEROL 43(L) > OR = 50 mg/dL [facility] TRIGLYCERIDES 212(H) <150 mg/dL [facility] Comment: If a non-fasting specimen was collected, consider repeat triglyceride testing on a fasting specimen if clinically indicated. Pallavi et al. J. of Clin. Lipidol. 2015;9:129-169. LDL-CHOLESTEROL 65 99 mg/dL (calc) [facility] Comment: Reference range: <100 Desirable range <100 mg/dL for primary prevention; ?? <70 mg/dL for patients with CHD or diabetic patients with > or = 2 CHD risk factors. LDL-C is now calculated using the Aravind-Uriel calculation, which is a validated novel method providing better accuracy than the Friedewald equation in the estimation of LDL-C. Aravind SS et al. ROSINA. 2013;310(19): 7987-9634 (http://education.NavPrescience/faq/QOL652) CHOL/HDLC RATIO 3.2 <5.0 (calc) [facility] NON-HDL CHOLESTEROL 93 <130 mg/dL (calc) [facility] Comment: For patients with diabetes plus 1 major ASCVD risk factor, treating to a non-HDL-C goal of <100 mg/dL (LDL-C of <70 mg/dL) is considered a therapeutic option. Blood Blood / Unknown 03/14/2024 3 :16 PM EDT 03/14/2024 3:17 PM EDT Franchesca Roberts PA-C LAB - BLOOD DRAW Final Resu lt Performing Organization Address [facility] Co de Phone Number [facility] [address] [address], [employer] [address] [address] * HEPATITIS C AB W/RFLX HCV RNA, QT, RT PCR (07/08/2021 10:28 AM EDT) Pathologist [facility] [place] HEPATITIS C ANTIBODY NON-REACT THERESA NON-REACT THERESA [facility] SIGNAL TO CUT-OFF 0.01 <1.00 [facility] Comment: HCV antibody was non-reactive. There is no laboratory evidence of HCV infection. In most cases, no further action is required. However, if recent HCV exposure is suspected, a test for HCV RNA (test code 18278) is suggested. For additional information please refer to http://education.Kraken/faq/QCV79f6 (This link is being provided for informational/ educational purposes only.) Blood Blood / Unknown 07/08/2021 1 0:28 AM EDT 07/08/2021 10:29 AM EDT Chidi Aleman OUTSIDE LABORER LAB - BLOOD DRAW Edited R esult - Final Performing Organization Address [facility] Co de Phone Number [facility] [address] [address], [employer] [address],[facility] [address] * HIV 1/2 AG & AB W/RFLX (4TH GEN) (07/08/2021 10:28 AM EDT) HIV AG/AB, 4TH GEN NON-REAC TIVE NON-REAC TIVE [facility] Comment: HIV-1 antigen and HIV-1/HIV-2 antibodies were [...] ?? For additional information please refer to http://education.Kraken/faq/YJA486 (This link is being provided for informational/ educational purposes only.) The performance of this assay has not been clinically validated in patients less than 2 years old. Blood Blood / Unknown 07/08/2021 1 0:28 AM EDT 07/08/2021 10:29 AM EDT Chidi DREWP LAB - BLOOD DRAW Final Re sult [facility] [address] [address], [facility] [address] [address] * HISTORIC COLONOSCOPY (06/25/2021 12:00 AM EDT) 06/25/2021 Coy HENSON PROCEDURES Final Result from Last 3 Months or Most Recently Relevant to Health Maintenance Insurance [place] D[place]AL [facility] [place] Care Teams Senior Java Software Engineer Relationship Specialty Start Date End Date Coy Adhikari PA [address] [place] [address] PCP - General Internal Medicine 04/10/17
== END 2025-01-10 14:51 | disposition home or self-care (01) ==
LOC: HO.PMCPRC 14:31
PROVIDERS: PCP Physician Assistant; Visit Provider Anesthesiology
DX: M16.0 Bilateral primary osteoarthritis of hip (principal); M25.551 Pain in right hip
CPT/HCPCS: 20610; 77002

== ENCOUNTER 2025-01-31 10:28 | Outpatient (AMB) | payer MEDICARE, MEDICAID, SELFPAY ==
--- NOTE | 2025-01-31 10:31 | A.OFFVIS_ITS ---
Vital Signs 3 01/31/25 10:35 Height 5 ft 7 in BMI Reason not done Patient refused/unable BP 148/85 H Blood Pressure Location Rt brachial Position Sitting Pulse 80 Pulse Source Pulse Oximeter Pulse Oximetry (%) 99 Oxygen Delivery Method Room Air Intake Visit Reasons: RIGHT INTRA-ARTICULAR HIP INJECTION Intake Note: Pain today 03/14 [place] Required: No Accompanied by: Self / Same As Patient Allergies oxycodone Allergy (Severe, Verified 01/31/25 10:36) Anaphylaxis Penicillins Adverse Reaction (Severe, Verified 01/31/25 10:36) rash HPI Comments Details: Patient presents today to assess response to Right intra-articular hip steroid injection with fluoroscopy on 01/10/[address] Paez. Patient reports 40% pain relief since procedure with minimal improvement in her daily activities and functioning, mobility or sleep. Patient continues to endorse right sided radiculopathy symptoms with back pain radiating into her right buttock and into her right buttock, lateral hip and right lower leg and right heel. She experiences numbness and tingling in her right heel and sometimes in the back of the leg, aggravated by activities like stair usage, thus requiring the use of a cane for long distances. She reports right hip with radiation into her groin, which has been less since hip injection. Pain limits her walking capacity and daily activities, sleep, mood and social interactions. She denies any symptoms on her left side. Denies any fever or chills, bladder or bowel dysfunction or saddle anesthesia. Reports RLE intermittent weakness due to pain, uses cane with ambulation. Most recent A1C=7.7, reports increasing her insulin coverage after steroid injection and regular blood sugar monitoring. - Onset and timing: Chronic, with significant ongoing issues despite recent interventions. - Quality/Character: Cramping, aching, with episodes of numbness and tingling. - Primary Location: Right hip, lower back, and right buttock. - Areas of Radiation: Pain radiates from lower back to right hip and buttock, with numbness/tingling in the right heel. - Exacerbating Factors: Activities such as stair climbing, inadequately supported sleep with various mattresses. - Relieving Factors: Initial minor relief with prior injections, though insufficient. - Affect: Pain significantly impacts mood and quality of life; social isolation noted due to distress. - Analgesia: Current pain scores at 03/14; minimal relief from medications like gabapentin and analgesics such as naproxen and ibuprofen. - Adverse Effects: Reported drowsiness with some pain medications. - Activities of Daily Living: Pain interferes with sleep, mobility, and social engagements; cane usage for prolonged walking. - Aberrant Drug Related Behaviors: None reported. Past Procedures: 01/10/25: Right intra-articular hip steroid injection with fluoroscopy-40% pain relief 10/25/24: Right L4-L5 TFESI-0% pain relief 08/09/24: Bilateral Diagnostic SIJ injections- 0% pain relief PRIOR: Patient is a 53 years old female presents today for low back pain with bilateral radiculopathy. She was referred to our office by [facility] for diagnostic right sacroiliac joint injection. Denies any recent trauma, injury or falls. Back pain is axial and also extends to sacral and buttocks areas and into her groin and posterior thighs, worse on the right. She also experiences significant right groin pain with internal and external hip rotations and weight bearing. She ambulates with antalgic gait with limping, favoring left side. Pain is worse with prolonged sitting, driving, changing positions from sitting to standing, walking, climbing stairs and most movements. She also reports moderate pain with lumbar extension and axial rotations. Patient utilizes cane with ambulation. She completed multiple courses of physical therapy, has been taking OTC medications, gabapentin, lidocaine patches with continued symptoms. Reports PT exacerbated her pain symptoms. Pain has been present for over 10 years and has been resistant to conservative treatments. Pain affects her daily activities and functioning, mobility, sleep, mood and quality of life. She completed lumbar spine MRI report at [facility] and had Neurosurgical evaluation by [facility] with no surgical recommendations at this time. Patient is interested to undergo bilateral diagnostic sacroiliac joint injections as next steps. Denies any fever, chills, abdominal pain, chest pain, headache, dizziness, numbness or tingling, weakness, foot drop, bladder or bowel dysfunction or saddle anesthesia. [facility] Medical History GERD (gastroesophageal reflux disease) Fibromyalgia Hypertension Asthma T2DM (type 2 diabetes mellitus) Uterine fibroid Hypothyroidism JUAREZ (obstructive sleep apnea) Lipoma of back Diverticulitis PTSD (post-traumatic stress disorder) Review of Systems Const Details: - Neurological: Reports numbness and tingling in the right heel and leg. - Musculoskeletal: Reports persistent hip and lower back pain. All systems reviewed & are unremarkable except as noted in HPI and below Physical Exam Vital Signs: Last Vital Signs Pulse 80 01/31/25 10:35 BP 148/85 H 01/31/25 10:35 Pulse Ox 99 01/31/25 10:35 Oxygen Delivery Method Room Air 01/31/25 10:35 General: Appears afebrile. Alert and oriented. Mood and affect appropriate. Follows and participates in conversation appropriately. Respiratory effort is unlabored. No cough. Able to transition from sit to stand unassisted. Ambulates with normal heel strike and toe off on the left, reports imbalance and unsteadiness on the right due to pain. General: Yes no CVA tenderness Back/Spine/Pelvis Other: Limited lumbar ROM due to pain. Antalgic gait with mild limping. Lumbar extension and flexion forward reproduces moderate pain. Demonstrates 5/5 left and 4/5 right due to pain strength of quadriceps bilaterally as well as flexion/dorsiflexion of bilateral feet against resistance. 2+ pedal pulses bilaterally. Seated straight leg rise with dorsiflexion positive on the right. +1 patellar and achilles reflexes bilaterally. Facet loading test positive bilaterally. Yusuf sign, Chalino?s, Gaenslen, Pelvic compression and Stinchfield tests are positive bilaterally, right>left. Mild to moderate groin pain with I/E hip rotations, right>left. Valsalva maneuver is positive. Back: no CVA tenderness Cervical Spine: cervical ROM normal, cervical muscular tenderness and No Cervical spine tenderness Thoracic/Lumbar Spine: thoracic and lumbar spine normal to inspection, No Thoracic/lumbar spine scar(s), Lasegue's sign positive on the right and diffuse, pain with thoraco-lumbar ROM, paraspinal muscle tenderness bilaterally, thoraco- lumbar ROM limited, No thoracic spinal tenderness and lumbar spinal tenderness (L4-S1) Pelvis: buttock tenderness bilaterally and sciatic notch tenderness on the right Sacroiliac joints: bilaterally tender to palpation Extrem General: Yes capillary refill normal, Yes no clubbing, cyanosis or edema and Yes no calf tenderness Results Reviewed Results Reviewed: XR BILATERAL HIPS WITH AP PELVIS 04/01/24 FINDINGS: Degenerative changes in the imaged lower lumbar spine. Moderate degenerative changes in the bilateral sacroiliac joints. [id number]-[id number] degenerative changes in bilateral hips with joint space narrowing and lateral acetabular hypertrophic change. Sclerotic focus overlying the right humeral head may represent a bony lesion such as a bone island versus less likely soft tissue calcification. IMPRESSION: 1. [id number] degenerative changes in bilateral hips. 2. Moderate degenerative changes in the bilateral sacroiliac joints. 3. Degenerative changes in the imaged lower lumbar spine. Assessment & Plan Assessment & Plan (1) Right hip pain: Code(s): M25.551 - Pain in right hip Category: Medical (2) Osteoarthritis of hips, bilateral: Code(s): M16.0 - Bilateral primary osteoarthritis of hip Category: Medical (3) Lumbosacral spondylosis: Code(s): M47.817 - Spondylosis without myelopathy or radiculopathy, lumbosacral region Category: Medical (4) Lumbar radiculopathy: Code(s): M54.16 - Radiculopathy, lumbar region Category: Medical (5) Lumbar degenerative disc disease: Code(s): M51.36 - Other intervertebral disc degeneration, lumbar region Category: Medical (6) Sacroiliitis: Code(s): M46.1 - Sacroiliitis, not elsewhere classified Category: Medical (7) SI (sacroiliac) joint dysfunction: Code(s): M53.3 - Sacrococcygeal disorders, not elsewhere classified Category: Medical Plan Patient is 3 weeks status post right hip steroid fluoroscopy guided injection with minimal pain relief. She continues to endorse right sided radiculopathy, SIJ and right hip pain. Patient would like to undergo Right L5-S1 TFESI with local and fluoroscopy to address lumbar radicular symptoms. Expectations, risks and benefits were reviewed. Patient is aware she will be contacted to schedule this procedure. Orthopedic Referral is placed to further evaluate right hip pain with history of bilateral hip OA. All questions were answered and the patient is in agreement of plan. Follow-up after injections and sooner as needed. Patient was informed and verbally consented to the use of an ambient scribe for clinic note documentation during this visit. Orders: Referrals 2 Orthopedics Referral M16.0 - Bilateral primary osteoarthritis of hip, M25.551 - Pain in right hip Patient Instructions: I discussed the significance of the patient's reported pain and the minimal relief from past interventions, advocating for orthopedic consultation to evaluate underlying joint discrepancies caused by moderate hip osteoarthritis. I explained the options for L5-S1 facet injection, addressing potential benefits in alleviating sciatic-related symptoms. Given her diabetic status, we?ll vigilantly monitor blood glucose fluctuations that steroids might induce. Additionally, I highlighted the importance of reassessing her analgesic regimen and optimizing it for improved functionality and pain reduction. The patient demonstrated understanding and consented to the outlined management strategy, aware of the advantages, risks, and implications. - Follow up with orthopedics for hip joint evaluation. - Prepare for scheduled right L5-S1 facet injection. - Monitor blood sugar levels, especially after injections. - Use prescribed medications as directed for pain and diabetes. - Adopt lifestyle changes to aid in managing diabetes and reducing pain flare- ups. - Report any worsening symptoms or concerns during the follow-up appointment. Coding Level of Care Code Est Pt Level 4 (47863) Complex EM visit Add On G2211 Diagnoses Right hip pain M25.551 Osteoarthritis of hips, bilateral M16.0 Lumbosacral spondylosis M47.817 Lumbar radiculopathy M54.16 Lumbar degenerative disc disease M51.36 Sacroiliitis M46.1 SI (sacroiliac) joint dysfunction M53.3
[2025-01-31 10:35] VITALS: BP 148/85; PULSE 80; O2SAT 99
--- OUTSIDE RECORDS SUMMARY | 2025-01-31 12:05 | XMS_ITS | Clinical Summary ---
Author Organization Patient Business Ser [facility] Address [address] [place] [address] Care Team Providers Care Glue Specialty Supervisor Name Role Phone Bronson Adhikari Primary Care Provider [phone] Social History Tobacco Use Types Packs/Day Years [...] Procedure Name Priority Date/Time Associated Diagnosis Comments [facility] SCREENING DIGITAL Routine 07/13/2024 8:15 AM EDT Encounter for screening mammogram for malignant neoplasm of breast from Last 3 Months or Most Recently Relevant to Health Maintenance Results * [facility] SCREENING DIGITAL (07/13/2024 8:15 AM EDT) Anatomical Region Laterality Modality Mammography 07/12/2024 3:17 PM EDT Narrative 07/13/2024 8:15 AM EDT [facility] Diagnostic Imaging Department [address] [place] [id number] Patient: ??COREEN JONAS ?/Age/Sex: 1970 - 53 - F Unit#: ??[id number] ? Location/Status: ??SPDIMAM/REG CLI ? Mnemonic/Ordering Site: ??DIGSC/SPMAM Ordering Physician: ??BRONSON ADHIKARI [facility] Screening Digital - 07/12/24 - 1530 Report Status:Signed EXAM: [facility] Screening Digital EXAM DATE AND TIME: 07/12/2024 3:31 PM HISTORY: ??Screening. COMPARISON: ??07/10/23, 07/07/22, 07/05/21 TECHNIQUE: Bilateral digital breast tomosynthesis was performed in the CC and MLO projections. Computer aided detection with [employer] 3D 3.1 was employed. TISSUE DENSITY: b. [...] Mammogram performed at [facility] [place] [address] Dictating Physician: ??FLOR BROTHERS MD Electronically Signed by: ??FLOR BROTHERS MD Dic Date/Time: ??07/13/24813 Sign date/Time: ??07/13/24814 Procedure Note Flor Brothers MD - 08/02/2024 [facility] Diagnostic Imaging Department [address] [place] [id number] Patient: STORM DAVISCOREEN./Age/Sex: 1970 - 53 - F Unit#: [id number] Location/Status: SPDIMAM/REG CLI Mnemonic/Ordering Site: [facility] Ordering Physician: BRONSON ADHIKARI [facility] Screening Digital - 07/12/24 - 1530 Report Status:Signed EXAM: [facility] Screening Digital EXAM DATE AND TIME: 07/12/2024 3:31 PM HISTORY: Screening. COMPARISON: 07/10/23, 07/07/22, 07/05/21 TECHNIQUE: Bilateral digital breast tomosynthesis was performed in the CCand MLO projections. Computer aided detection with [employer] 3D 3.1was employed. TISSUE DENSITY: b. There [...] Mammogram performed at [facility] [place] [address] Dictating Physician: FLOR BROTHERS MD Electronically Signed by: FLOR BROTHERS MD Dic Date/Time: 07/13/24813 Sign date/Time: 07/13/24814 Bronson HENSON IMG BI PROCEDURES Final Result from Last 3 Months or Most Recently Relevant to Health Maintenance Advance Directives Documents on File Type Date Recorded Patient Ear Nose And Throat Specialist Expl anation Health Care Decision (hx) 08/24/2015 [...] (hx) 08/21/2015 AD ARRIAGA DIRECTIVE Care Teams Glue Specialty Supervisor Relationship Specialty Start Date End Date Bronson Adhikari PA [address] [place] [address] PCP - General Internal Medicine 03/11/19
--- OUTSIDE RECORDS SUMMARY | 2025-01-31 12:05 | XMS_ITS | Clinical Summary ---
Author Organization [facility] Address [address] [place] [address] Care Team Providers Care Baggage Handler Name Role Phone Coy Adhikari Primary Care Provider [phone] Source Comments PLEASE NOTE, if this patient [...] no issues. Medications leg brace (KNEE SUPPORT BRACE)Indications:Help Desk Agent trudy pain of left knee Left knee [...] coma, with long-term current use of insulin ([facility]),Routine adult health maintenance USE DIRECTED ,,CHANGE EVERY 14 DAYS 2 Kit 11 2022 Active timolol (BETIMOL OPHT) Apply 1 Drop to eye 2021 Active estradioL (CLIMARA) 0.1 mg/24 hr patch APPLY 1 PATCH TOPICALLY ONCE WEEKLY Active nystatin (MYCOSTATIN) 100,000 unit/gram powder Apply topically 2022 Active MISCELLANEOUS MEDICAL SUPPLY MISCIndications:Acute coccygeal pain Donut shaped cushion x99 years 5'9 206 lbs 1 Each 2023 Active budesonide-formoteroL (SYMBICORT) 80-4.5 mcg/actuation inhaler Inhale 2 Puffs into the lungs 2 (two) times daily 10.2 g 1 2023 Active VENTOLIN HFA 90 mcg/actuation inhalerIndications:Unc omplicated asthma, unspecified asthma severity, unspecified whether persistent ([facility]) INHALE 2 PUFFS INTO THE LUNGS EVERY 4 (FOUR) HOURS NEEDED FOR SHORTNESS OF BREATH OR WHEEZING 18 Each 3 2023 Active blood sugar diagnostic (FREESTYLE TEST) stripsIndications:Type 2 diabetes mellitus without complications ([facility]) as needed for high blood sugar Check glucose once daily 100 Each 5 2023 Active alcohol swabsIndications:Contr olled type 2 diabetes mellitus without complication, unspecified whether buttermaker insulin use ([facility]) APPLY TO AFFECTED AREA TWICE A DAY [...] asthma, unspecified asthma severity, unspecified whether persistent ([facility]) INHALE 1 PUFF INTO THE LUNGS DAILY 30 Each 2 2023 Active estradioL (CLIMARA) 0.1 mg/24 hr patch Apply 1 Patch topically 2022 Active metoclopramide (REGLAN) 10 mg tablet TAKE 1 TABLET BY MOUTH EVERY 6 HOURS NEEDED FOR NAUSEA AND VOMITING FOR 7 DAYS 2022 Active mupirocin (BACTROBAN) 2 % ointmentIndications:Wo und dehiscence APLICA TOPICAMENTE AURELIO VECES AL ADAN 22 g 2023 Active levothyroxine 125 mcg tabletIndications:Acqu ired hypothyroidism TAKE 1 TABLET BY MOUTH IN THE MORNING BEFORE BREAKFAST, STOP LEVOTHYROXINE 150 MCG 90 Tablet 3 2023 Active cholecalciferol, vitamin D3, (VITAMIN D3) 1,250 mcg (50,000 unit) capsuleIndications:Fam ilial hypercholesterolemia Take 1 Capsule by mouth once a week 12 Capsule 1 2023 Active diclofenac sodium (VOLTAREN) 1 % gelIndications:Chronic pain of left knee APPLY TO AFFECTED AREA TWICE A DAY 300 g 2 2023 Active cyclobenzaprine (FLEXERIL) 5 mg tabletIndications:Fibr omyalgia TAKE 1 TABLET BY MOUTH THREE TIMES A DAY NEEDED FOR MUSCLE SPASM 60 Tablet 2023 Active meclizine (ANTIVERT) 25 mg tablet TAKE 1 TABLET BY MOUTH TWICE A DAY NEEDED FOR NAUSEA AND DIZZINESS 60 Tablet 2 2023 Active metFORMIN (GLUCOPHAGE) 1,000 mg tabletIndications:Diab etes mellitus without complication ([facility]) TAKE 1 TABLET BY MOUTH TWICE A [...] 12 HOURS 30 Patch 2 2023 Active lisinopriL 40 mg tabletIndications:Esse ntial hypertension TAKE 1 TABLET BY MOUTH EVERY DAY 90 Tablet 1 [address] tablet TAKE 1 TABLET BY MOUTH EVERY DAY 90 Tablet 2 2024 Active LINZESS 72 mcg capIndications:Constip ation, unspecified TAKE 1 CAPSULE BY MOUTH ONCE DAILY NEEDED FOR CONSTIPATION. 30 Capsule 1 2024 Active pen needle, diabetic (BD ULTRA-FINE SHORT PEN NEEDLE) 31 gauge x 5/16 ndleIndications:Diabet es mellitus without complication ([facility]) USE ONCE DAILY DIRECTED 100 Each 1 2024 Active sucralfate (CARAFATE) 1 gram tabletIndications:Acut e gastritis without hemorrhage, unspecified gastritis type TAKE 1 TABLET BY MOUTH EVERY DAY 90 Tablet 1 2024 Active insulin glargine 100 unit/mL (3 mL) penIndications:Severe obesity ([facility]),Type 2 diabetes mellitus with hyperglycemia, with long-term current use of insulin ([facility]) Inject 35 Units into the skin nightly at bedtime 10.5 mL 11 11/08 Active estradioL (CLIMARA) 0.1 mg/24 hr patch APPLY 1 PATCH TOPICALLY ONCE WEEKLY 12 Patch 5 2024 Active JARDIANCE 10 mg tabIndications:Type 2 diabetes mellitus without complications ([facility]) TAKE 1 TABLET BY MOUTH EVERY DAY 90 Tablet 1 2024 Active rosuvastatin (CRESTOR) 40 mg tabletIndications:Fami lial hypercholesterolemia TOME 1 TABLETA POR VIA ORAL TODOS LOS GOOD 90 Tablet 2024 Active ferrous sulfate 325 mg (65 mg iron) tablet TOME 1 TABLETA POR VIA ORAL TODOS LOS GOOD CON EL DESAYUNO 90 Tablet 2024 Active gabapentin (NEURONTIN) 100 mg capsule TAKE 1 CAPSULE BY MOUTH 3 TIMES A DAY NEEDED FOR PAIN 90 Capsule 2 2024 Active clonazePAM (KLONOPIN) 1 mg tabletIndications:PTSD (post-traumatic stress disorder) TAKE 1 TABLET BY MOUTH EVERY DAY NEEDED FOR ANXIETY 30 Tablet 2 2024 Active pantoprazole (PROTONIX) 40 mg EC tabletIndications:Branden roesophageal reflux disease without esophagitis TAKE 1 TABLET BY MOUTH EVERY DAY 90 Tablet 1 2024 Active buPROPion HCL (WELLBUTRIN XL) 300 mg 24 hr tabletIndications:Depr ession, unspecified depression type Take 1 Tablet by mouth every morning 90 Tablet 2024 Active zolpidem (AMBIEN) 10 mg tabletIndications:Inso mnia, unspecified type Take 1 Tablet by mouth nightly at bedtime as needed for sleep (Use ONLY NEEDED for sleeplessness) 30 Tablet 2 2024 Active tirzepatide (MOUNJARO) 2.5 mg/0.5 mL pnijIndications:Type 2 diabetes mellitus with hyperglycemia, with long-term current use of insulin ([facility]) Inject 2.5 mg into the skin once a week 2 mL 2024 Active tirzepatide (MOUNJARO) 5 mg/0.5 mL pnijIndications:Type 2 diabetes mellitus with hyperglycemia, with long-term current use of insulin ([facility]) Inject 5 mg into the skin once a week After one month 2 mL 1 2024 Active naproxen (NAPROSYN) 500 mg tabletIndications:Lumb ar spine pain,Bilateral hip pain TOME JIMBO TABLETA POR VIA ORAL DOS VECES AL ADAN CUANDO SEA NECESARIO PARA EL DOLOR OR SWELLING 30 Tablet 2024 Active naproxen (NAPROSYN) 500 mg tabletIndications:Lumb ar spine pain,Bilateral hip pain TOME JIMBO TABLETA POR VIA ORAL DOS VECES AL DAAN CUANDO SEA NECESARIO PARA EL DOLOR OR SWELLING 30 Tablet 01/16 Discontinued Active Problems Problem Noted Date Diagnosed Date Class 1 obesity due to exces s calories without serious comorbidity with body mass index (BMI) of 31.0 to 31.9 in adult 12/14/2024 Moderate episode of recurren t major depressive disorder ([facility]) 12/14/2024 Anxiety 05/05/2024 Mild episode of recurrent ma stepan depressive disorder ([facility] V24) 05/05/2024 History of MRI of lumbar [...] Moderate glaucoma- stable. Cataract- monitor Diabetes mellitus ([facility]) 11/14/2016 Fibromyalgia 09/04/2016 Asthma ([facility]) 02/08/2016 HTN (hypertension) 12/25/2015 Overview (12/11/2022): Takes lisinopril 30mg daily Gastroesophageal reflux disease without esophagi tis 12/25/2015 Overview (02/24/2019): EGD done on 02-24-19- biopsies taken. Await for results. Takes prilosec 20mg Hypercholesterolemia 12/25/2015 Overview (03/05/2022): Takes crestor 40mg Takes asprin 81mg daily Hypothyroidism 12/25/2015 Overview (12/11/2022): Takes metformin 1000mg BID Last a1c 12/2015: 8.3%, ldl 185 Depression 12/25/2015 Overview (12/11/2022): [facility] Takes takes seroquel 400mg at night Bupropion 300mg/24hrs Disease of thyroid gland 12/25/2015 Overview (12/11/2022): Takes Levothyroxine 150mcg daily Anemia 12/25/2015 Overview (12/25/2015): Iron Deficiency AnemiaTakes 325mg (65mg elemental iron) daily Arthralgia 12/25/2015 H/O vitamin D deficiency 12/25/2015 Insomnia 12/25/2015 Overview (12/25/2015): seroquel 400mg every night Resolved Problems Problem Noted Date Diagnosed Date Resolved Date Chest pain 05/05/2022 03/30/2023 Severe obesity (HCC-CMS) 12/25/201509/2025 Overview (10/07/2023): Not motivated to lose weight Encounters Date Type Department Care Team Description 01/24/2025 1:45 PM EDT /MH Visits [address] [phone] Shaw Mas LCSW Major depressive disorder, recurrent episode with anxious distress ([facility] V24) (Primary Dx) 01/18/2025 Interim Notes [address] [phone] Neli Salamanca CMA 12/26/2024 1:00 PM EDT BH/MH Visits [address] [phone] Shaw Mas LCSW Major depressive disorder, recurrent episode with anxious distress (HCC-CMS) (Primary Dx) 12/14/2024 9:00 AM EDT Office Visit [address] [phone] Chidi Aleman FNP Type 2 diabetes mellitus with hyperglycemia, with long-term current use of insulin (HCC-CMS) (Primary Dx); Polypharmacy; Low back pain, unspecified back pain laterality, unspecified chronicity, unspecified whether sciatica present; Class 1 obesity due to excess calories without serious comorbidity with body mass index (BMI) of 31.0 to 31.9 in adult; Moderate episode of recurrent major depressive disorder (HCC-CMS) 12/08/2024 2:00 PM EST BH/MH Visits [address] [phone] Ladonna Sousa, PMHNP Shanice Fajardo PTSD (post-traumatic [...] Care Team (Late st Contact Info) Description 02/20/2025 1:45 PM EDT / Visits [facility] [address] [place] [phone] Shaw Mas, ASSISTANT GROCERY STORE MANAGER [address] [place] [address] 03/09/2025 2:00 PM EDT / Visits [facility] [address] [place] [phone] Ladonna Sousa, HNP [address] [place] [address] Shanice Fajardo [address] [place] [address] Health Maintenance Due Date Last Done Comments Anxiety Screening 1970 Dental FMX/Pano 1970 Dental Perio Charting 1970 HPV Screening 1970 Pap + HPV 1970 CT Colonography 01/01/2016 FIT/gFOBT 01/01/2016 Fecal DNA 01/01/2016 Flexible Sigmoidoscopy 01/01/2016 Pap Smear 01/06/2019 01/07/2016 (Rebecca ruiz by Outside Provider) [id number] ( season) 2024 Depression Monitoring 06/14/2024 03/14/2024 [...] 118/74(2024 9:17 AM EDT) No Nicki Riley, PharmD HEMOGLOBIN A1C < 7.0 Result Component Diabetes mellitus ([facility]) 7.7( 11:22 AM EDT) No Nicki Riley, HankD Procedures Procedure Name Priority Date/Time Associated Diagnosis Comments REFERRAL SCANNED DOCUMENT 01/10/2025 3:00 AM EDT OTHER ORDERS SCANNED DOCUMENT 12/23/2024 3:00 AM EDT COMPREHENSIVE METABOLIC PANEL Routine 12/14/2024 11:22 AM EDT Type 2 diabetes mellitus with hyperglycemia, with long-term current use of insulin ([facility]) HEMOGLOBIN GLYCOSYLATED A1C Routine 12/14/2024 11:22 AM EDT Type 2 diabetes mellitus with hyperglycemia, with long-term current use of insulin ([facility]) URINALYSIS, MULTISTIX (POCT) Routine 12/14/2024 10:07 AM EDT Type 2 diabetes mellitus with hyperglycemia, with long-term current use of insulin ([facility]) GLUCOSE, BLOOD BY GLUCOSE MONITORING DEVICE (CLIA WAIVED)POCT Routine 12/14/2024 9:31 AM EDT Type 2 diabetes mellitus with hyperglycemia, with long-term current use of insulin ([facility]) OTHER ORDERS SCANNED DOCUMENT 12/08/2024 3:00 AM EST REFERRAL SCANNED DOCUMENT 11/14/2024 3:00 AM EST REFERRAL FOR MAMMOGRAM Routine [...] Type 2 diabetes mellitus without complications (HCC-CMS) BITEWINGS - FOUR RADIOGRAPHIC IMAGES Routine 03/03/2024 [...] Insulin dependent type 2 diabetes mellitus, uncontrolled ([facility]) HEPATITIS C AB W/RFLX HCV RNA, QT, RT PCR Routine 07/08/2021 10:28 AM EDT Insulin dependent type 2 diabetes mellitus, uncontrolled (HCC-CMS) Other problems related to lifestyle HISTORIC COLONOSCOPY 06/25/2021 12:00 AM EDT from Last 3 Months or Most Recently Relevant to Health Maintenance Results * REFERRAL SCANNED DOCUMENT (01/10/2025 3:00 AM EDT) Only the most recent of2 resultswithin the time period is included. 01/10/2025 3:00 AM EDT Coy HENSON SCAN REFERRAL Final Result * OTHER ORDERS SCANNED DOCUMENT (12/23/2024 3:00 AM EDT) Only the most recent of2 resultswithin the time period is included. 12/23/2024 3:00 AM EDT Coy HENSON SCAN OTHER ORDERS Final Result * (ABNORMAL) HEMOGLOBIN GLYCOSYLATED A1C (12/14/2024 11:22 AM EDT) HEMOGLOBIN A1C 7.7(H) <5.7 % of total Hgb [facility] Comment: For someone without known diabetes, a [...] AM EDT 12/14/2024 11:23 AM EDT Narrative [facility] - 12/15/2024 8:28 AM EDT FASTING:NO Chidi Aleman EVP AND CHIEF OPERATING OFFICER LAB - BLOOD DRAW E dited Result - Final [facility] [address] [place] [id number], [facility] [address] [place] [phone] * COMPREHENSIVE METABOLIC PANEL (12/14/2024 11:22 AM EDT) GLUCOSE 131 65 - 139 mg/dL [facility] Comment: ?Non-fasting reference interval UREA NITROGEN (BUN) 10 7 - 25 mg/dL [facility] CREATININE (blood) 0.69 0.50 - 1.03 mg/dL [facility] EGFR 104 > OR = 60 mL/min/1. 73m2 [facility] BUN/CREATININE RATIO SEE NOTE: 6 - 22 [facility] Comment: ?? Not Reported: BUN and Creatinine are within ?? reference range. ? SODIUM 139 135 - 146 mmol/L [facility] POTASSIUM 4.5 3.5 - 5.3 mmol/L [facility] CHLORIDE 104 98 - 110 mmol/L [facility] CARBON DIOXIDE 26 20 - 32 mmol/L [facility] CALCIUM 9.9 8.6 - 10.4 mg/dL [facility] PROTEIN, TOTAL 7.4 6.1 - 8.1 g/dL [facility] ALBUMIN 4.8 3.6 - 5.1 g/dL [facility] GLOBULIN 2.6 1.9 - 3.7 g/dL (calc) [facility] ALBUMIN/GLOBULI N RATIO 1.8 1.0 - 2.5 (calc) [facility] BILIRUBIN, TOTAL 0.2 0.2 - 1.2 mg/dL [facility] ALKALINE PHOSPHATASE 50 37 - 153 U/L [facility] AST 14 10 - 35 U/L [facility] ALT 26 6 - 29 U/L [facility] Blood Blood / Unknown 12/14/2024 1 1:22 AM EDT 12/14/2024 11:23 AM EDT Narrative [facility] - 12/15/2024 8:28 AM EDT FASTING:NO Chidi Aleman EVP AND CHIEF OPERATING OFFICER LAB - BLOOD DRAW F inal Result [facility] [address] [address], [facility] [address] [phone] * URINALYSIS, MULTISTIX (POCT) (12/14/2024 10:07 AM EDT) URINE GLUCOSE 300-500 (2+) NEGATIVE [facility]- BACK OFFICE POCT URINE BILIRUBIN NEGATIVE NEGATIVE [facility]- BACK OFFICE POCT URINE KETONES NEGATIVE NEGATIVE [facility]- BACK OFFICE POCT URINE SPECIFIC GRAVITY 1.015 <=1.005 - >=1.030 [facility]- BACK OFFICE POCT URINE BLOOD NEGATIVE NEGATIVE [facility]- BACK OFFICE POCT URINE PH 5.5 5.0 - 8.5 [facility]- BACK OFFICE POCT URINE PROTEIN Negative Negative [facility]- BACK OFFICE POCT URINE UROBILINOGEN 0.2 0.2 - 1.0 E.U./dL [facility]- BACK OFFICE POCT URINE NITRITE NEGATIVE NEGATIVE [facility]- BACK OFFICE POCT URINE LEUKOCYTES NEGATIVE NEGATIVE CAR ING [facility] BACK OFFICE POCT URINE COLOR LIGHT YELLOW STRAW, YELLOW [facility]- BACK OFFICE POCT ODOR URINE Normal Normal [facility]- BACK OFFICE POCT CLARITY OF URINE CLEAR CLEAR CAR ING [facility]- BACK OFFICE POCT Urine Urine specimen / Unknown 12/14/2024 10:07 AM EDT Result [facility] Chidi Aleman [facility] LAB - NO BLOOD KENNY W Final Result [facility] BACK OFFICE POCT * (ABNORMAL) GLUCOSE, BLOOD BY GLUCOSE MONITORING DEVICE (CLIA WAIVED)POCT (12/14/2024 9:31 AM EDT) GLUCOSE 300(A) 70 - 100 mg/dL [facility] BACK OFFICE POCT Capillary Blood Blood / Unknown 9:31 AM EDT Result [facility] Chidi Aleman [facility] LAB - BLOOD DRAW F inal Result [facility] OFFICE POCT * REFERRAL FOR MAMMOGRAM (07/12/2024 3:00 AM EDT) 07/12/2024 3:00 AM EDT Coy HENSON IMG RFL MAMMO Final Result * EYE EXAM (06/09/2024 3:00 AM EDT) 06/09/2024 3:00 AM EDT us Coy HENSON OTHER Edited Result - Final * TSH W/RFLX FREE T4 (05/10/2024 1:19 PM EDT) TSH W/REFLEX TO FT4 1.05 0.40 - 4.50 mIU/L [facility] Comment: ?Reference Range ?> or = 20 Years ??0.40-4.50 ? Ranges ?First trimester ?0.26-2.66 ?Second trimester ?? 0.55-2.73 ?Third trimester ?0.43-2.91 Blood Blood / Unknown 05/10/2024 1 :19 PM EDT 05/10/2024 1:20 PM EDT Narrative [facility] - 05/11/2024 6:38 AM EDT FASTING:NO us Franchesca Roberts PA-C LAB - BLOOD DRAW Final Resu lt [facility] [address] [address], [facility] [address] [phone] * MICROALBUMIN/CREATININE RATIO, URINE, RANDOM (03/14/2024 3:16 PM EDT) Pathologist [facility] CREATININE, RANDOM URINE 67 20 - 275 mg/dL [facility] MICROALBUMIN <0.2 mg/dL [facility] Comment: Reference Range Not established MICROALBUMIN/CREA TININE RATIO, RANDOM URINE NOTE <30 [facility] Comment: NOTE: The urine albumin value is [...] PM EDT Franchesca Roberts PA-C LAB - NO BLOOD DRAW Final R esult [facility] [address] [address], [facility] [address] [address] * (ABNORMAL) LIPID PANEL (03/14/2024 3:16 PM EDT) CHOLESTEROL, TOTAL 136 <200 mg/dL [facility] HDL CHOLESTEROL 43(L) > OR = 50 mg/dL [facility] TRIGLYCERIDES 212(H) <150 mg/dL [facility] Comment: If a non-fasting specimen was collected, consider repeat triglyceride testing on a fasting specimen if clinically indicated. Olivo et al. J. of Clin. Lipidol. 2015;9:129-169. LDL-CHOLESTEROL 65 99 mg/dL (calc) [facility] Comment: Reference range: <100 Desirable range <100 mg/dL for primary prevention; ?? <70 mg/dL for patients with CHD or diabetic patients with > or = 2 CHD risk factors. LDL-C is now calculated using the Aravind-Uriel calculation, which is a validated novel method providing better accuracy than the Friedewald equation in the estimation of LDL-C. Aravind LOVETT et al. ROSINA. 2013;310(19): 5096-9685 (http://education.GoLark/faq/MEC497) CHOL/HDLC RATIO 3.2 <5.0 (calc) [facility] NON-HDL CHOLESTEROL 93 <130 mg/dL (calc) [facility] Comment: For patients with diabetes plus 1 major ASCVD risk factor, treating to a non-HDL-C goal of <100 mg/dL (LDL-C of <70 mg/dL) is considered a therapeutic option. Blood Blood / Unknown 03/14/2024 3 :16 PM EDT 03/14/2024 3:17 PM EDT Franchesca Roberts PA-C LAB - BLOOD DRAW Final Resu lt Performing Organization Address [facility] Co de Phone Number [facility] [address] [address], [facility] [address] [phone] * HEPATITIS C AB W/RFLX HCV RNA, QT, RT PCR (07/08/2021 10:28 AM EDT) HEPATITIS C ANTIBODY NON-REACT THERESA NON-REACT THERESA [facility] SIGNAL TO CUT-OFF 0.01 <1.00 [facility] Comment: HCV antibody was non-reactive. There is no laboratory evidence of HCV infection. In most cases, no further action is required. However, if recent HCV exposure is suspected, a test for HCV RNA (test code 59826) is suggested. For additional information please refer to http://education.[employer]/faq/QIO81u3 (This link is being provided for informational/ educational purposes only.) Blood Blood / Unknown 07/08/2021 1 0:28 AM EDT 07/08/2021 10:29 AM EDT Chidi Aleman EVP AND CHIEF OPERATING OFFICER LAB - BLOOD DRAW E dited Result - Final Performing Organization Address [facility] Co de Phone Number [facility] [facility] [address] [address], [facility] [address],[facility] [place] [phone] * HIV 1/2 AG & AB W/RFLX (4TH GEN) (07/08/2021 10:28 AM EDT) HIV AG/AB, 4TH GEN NON-REAC TIVE NON-REAC TIVE [employer] Comment: HIV-1 antigen and HIV-1/HIV-2 antibodies [...] ?? For additional information please refer to http://education.[employer]/faq/GMA360 (This link is being provided for informational/ educational purposes only.) The performance of this assay has not been clinically validated in patients less than 2 years old. Blood Blood / Unknown 07/08/2021 1 0:28 AM EDT 07/08/2021 10:29 AM EDT Chidi Aleman EVP AND CHIEF OPERATING OFFICER LAB - BLOOD DRAW F inal Result [facility] [address] [address], [facility] [address] [address] * HISTORIC COLONOSCOPY (06/25/2021 12:00 AM EDT) 06/25/2021 Coy HENSON PROCEDURES Final Result from Last 3 Months or Most Recently Relevant to Health Maintenance Insurance MEDICARE [place] DENTAL [facility] DENTAL MEDICAID Care Teams Baggage Handler Relationship Specialty Start Date End Date Coy Adhikari PA [address] [place] [address] PCP - General Internal Medicine 04/10/17
== END 2025-01-31 10:54 | disposition home or self-care (01) ==
PROVIDERS: PCP Physician Assistant; Visit Provider Nurse Practitioner Family
DX: M25.551 Pain in right hip (principal); M16.0 Bilateral primary osteoarthritis of hip; M47.817 Spondylosis without myelopathy or radiculopathy, lumbosacral region; M54.16 Radiculopathy, lumbar region; M51.369 Other intervertebral disc degeneration, lumbar region without mention of lumbar back pain or lower extremity pain; M46.1 Sacroiliitis, not elsewhere classified; M53.3 Sacrococcygeal disorders, not elsewhere classified
CPT/HCPCS: 99214; G2211

== ENCOUNTER → 2025-01-31 10:28 | Outpatient (BNVA) | payer MEDICARE, MEDICAID, SELFPAY | PROVIDERS: PCP Physician Assistant; Visit Provider Nurse Practitioner Family | DX: M16.0 Bilateral primary osteoarthritis of hip (principal); M47.27 Other spondylosis with radiculopathy, lumbosacral region; M51.369 Other intervertebral disc degeneration, lumbar region without mention of lumbar back pain or lower extremity pain; M46.1 Sacroiliitis, not elsewhere classified; M53.3 Sacrococcygeal disorders, not elsewhere classified | CPT/HCPCS: 99212 ==

== ENCOUNTER 2025-03-16 11:46 | Outpatient (REF) | payer MEDICARE, MEDICAID, SELFPAY ==
--- NOTE | ~2025-03-16 | XR_ITS ---
EXAMINATION: XR PELVIS CLINICAL INFORMATION: M25.559 - Pain in unspecified hip COMPARISON: None available. TECHNIQUE: AP view of the pelvis. FINDINGS: Bony pelvis is intact. Degenerative changes in the symphysis post. No lytic or blastic lesions. Mild sclerosis along the articular surface of the acetabulum, bilaterally. XR/XR pelvis 1-2V IMPRESSION: No acute fracture Electronically signed by: Dewey Burns MD 03/16/2025 03:01 PM EDT
--- OUTSIDE RECORDS SUMMARY | 2025-03-16 13:54 | XMS_ITS | Clinical Summary ---
Author Organization [facility] Address [address] [place] [address] Care Team Providers Care Insurance Agents Supervisor Name Role Phone Bronson Adhikari Primary Care Provider [phone] Social History Tobacco Use Types Packs/Day Years [...] Smear 01/01/1992 Colorectal Cancer Screening: Colonoscopy 05/23/2020 HIV Screening 05/23/2020 Hepatitis C Screening 05/23/2020 Lung Cancer Screening (Low Dose CT) 05/23/2020 Social Influencers of Health Screening 05/23/2020 Pneumococcal Vaccine: 50+ Years (1 of 1 - PCV) 2020 Zoster Vaccines (1 of 2) 2020 COVID-19 Vaccine ( season) 2024 Depression Screening 03/14/2025 03/14/2024 Influenza Vaccine (Season Ended) 2025 Breast Cancer [...] Procedure Name Priority Date/Time Associated Diagnosis Comments [facility] SCREENING DIGITAL Routine 07/13/2024 8:15 AM EDT Encounter for screening mammogram for malignant neoplasm of breast from Last 3 Months or Most Recently Relevant to Health Maintenance Results * [facility] SCREENING DIGITAL (07/13/2024 8:15 AM EDT) Anatomical Region Laterality Modality Mammography 07/12/2024 3:17 PM EDT Narrative 07/13/2024 8:[address] [facility] Diagnostic Imaging Department [address] [place] [address] [id number] Patient: ??INMAN COREEN DAVIS ?/Age/Sex: 1970 - 53 - F Unit#: ??[id number] ? Location/Status: ??SPDIMAM/REG CLI ? Mnemonic/Ordering Site: ??DIGSC/SPMAM Ordering Physician: ??BRONSON ADHIKARI [facility] Screening Digital - 07/12/24 - 1530 Report Status:Signed EXAM: [facility] Screening Digital EXAM DATE AND TIME: 07/12/2024 3:31 PM HISTORY: ??Screening. COMPARISON: ??07/10/23, 07/07/22, 07/05/21 TECHNIQUE: Bilateral digital breast tomosynthesis was performed in the CC and MLO projections. Computer aided detection with [employer] 3D 3.1 was employed. TISSUE DENSITY: b. [...] Mammogram performed at [facility] [place] [address] Dictating Physician: ??FLOR BROTHERS MD Electronically Signed by: ??FLOR BROTHERS MD Dic Date/Time: ??07/13/24813 Sign date/Time: ??07/13/24814 Procedure Note Flor Brothers MD - 08/02/2024 [facility] Diagnostic Imaging Department [address] [place] [id number] Patient: STORM DAVISCOREEN./Age/Sex: 1970 - 53 - F Unit#: [id number] [facility] CLI Mnemonic/Ordering Site: [facility] Ordering Physician: BRONSON ADHIKARI [facility] Screening Digital - 07/12/24 - 1530 Report Status:Signed EXAM: [facility] Screening Digital EXAM DATE AND TIME: 07/12/2024 3:31 PM HISTORY: Screening. COMPARISON: 07/10/23, 07/07/22, 07/05/21 TECHNIQUE: Bilateral digital breast tomosynthesis was performed in the CCand MLO projections. Computer aided detection with [employer] 3D 3.1was employed. TISSUE DENSITY: b. There [...] Mammogram performed at [facility] at [address] [address] Dictating Physician: FLOR BROTHERS MD Electronically Signed by: FLOR BROTHERS MD Dic Date/Time: 07/13/24813 Sign date/Time: 07/13/24814 Bronson [facility]SON IMG BI PROCEDURES Final Result from Last 3 Months or Most Recently Relevant to Health Maintenance Advance Directives Documents on File Type Date Recorded Patient Manager Forensic Expl anation Health Care Decision (hx) 08/24/2015 [...] (hx) 08/21/2015 AD ARRIAGA DIRECTIVE Care Teams Insurance Agents Supervisor Relationship Specialty Start Date End Date Bronson Adhikari PA [address] [place] [address] PCP - General Internal Medicine 03/11/19
== END 2025-03-16 11:47 | disposition home or self-care (01) ==
LOC: HO.HOSX 11:46
PROVIDERS: Visit Provider Orthopaedic Surgery
DX: M25.559 Pain in unspecified hip (principal)
CPT/HCPCS: 72170; 99202

== ENCOUNTER 2025-03-16 13:05 | Outpatient (AMB) | payer MEDICARE, MEDICAID, SELFPAY ==
[2025-03-16 13:14] VITALS: BMI 32.7
--- NOTE | 2025-03-16 13:14 | A.OFFVIS_ITS ---
Vital Signs 03/16/25 13:14 Height 5 ft 7 in Weight 209 lb BMI 32.7 Intake Visit Reasons: New Patient - Right Hip OA Intake Note: Coreen is a 54 year old female who presents today with complaints of Right Hip Pain. She has recently been seen with pain management who provided her with an intra-articular Right Hip injection on 01/10/25 which provided her with mild relief. She is scheduled for a Right L5-S1 TFESI with local and fluoroscopy on 03/28/25 with pain mgmt. Allergies oxycodone Allergy (Severe, Verified 03/16/25 13:14) Anaphylaxis Penicillins Adverse Reaction (Severe, Verified 03/16/25 13:14) rash HPI HPI New Patient - Right Hip OA: Details: This is a 54-year-old woman who comes in today referred from pain management for right hip osteoarthritis. She has had multiple injections in the region. She has had a L4-5 injection, an SI joint injection and an intra-articular right hip injection. With respect to the right hip injection she states she may have felt some mild relief but it was not overall particularly helpful. The pain she describes is pain that it radiates from the lumbosacral region distally and posterolaterally around the thigh into the knee. She denies numbness/tingling/burning. She denies groin pain. [facility] Medical History (Reviewed 03/16/25 @ 13:15 by Samantha Corley [facility]) GERD (gastroesophageal reflux disease) Fibromyalgia Hypertension Asthma T2DM (type 2 diabetes mellitus) Uterine fibroid Hypothyroidism JUAREZ (obstructive sleep apnea) Lipoma of back Diverticulitis PTSD (post-traumatic stress disorder) Physical Exam Vital Signs: BMI result Body Mass Index 32.7 Extrem Other: On exam of the right hip she has full range of motion of the right hip. She has 30 degrees of abduction at neutral. She has a negative impingement test and I can rotate her right hip freely without discomfort. She has a negative Stinchfield and a positive SLR on the right. Results Reviewed Results Reviewed: I personally reviewed relevant radiographs. There is mild bilateral hip osteoarthritis right greater than left Assessment & Plan Assessment & Plan (1) Osteoarthritis of hips, bilateral: Code(s): M16.0 - Bilateral primary osteoarthritis of hip Category: Medical Plan: This is a 54-year-old woman who presents today with mild right hip osteoarthritis. Her pain and exam are not consistent with clinically meaningful hip osteoarthritis. She has not benefitted from injections and her imaging is unremarkable. This presentation is not concerning for surgically treatable hip arthritis. She has full range of motion of the right hip with no groin pain. I had a long discussion with her. I explained the anatomy and the potential pain generators. It is my opinion, however, that her pain is not coming from her right hip. Should she have any further questions she should feel free to contact me but I have recommended that she can continue to pursue alternative treatments for her pain and that surgery is not indicated at this time and intra-articular injections have not been helpful. Orders: Orders XR pelvis 1-2V 03/16/25 M25.559 - Pain in unspecified hip Coding Level of Care Code New Pt Level 3 (13545) Diagnoses Osteoarthritis of hips, bilateral M16.0
== END 2025-03-16 13:43 | disposition home or self-care (01) ==
LOC: HO.HOS 13:06
PROVIDERS: PCP Physician Assistant; Visit Provider Orthopaedic Surgery
DX: M16.0 Bilateral primary osteoarthritis of hip (principal)
CPT/HCPCS: 99203

== ENCOUNTER → 2025-03-16 13:09 | Outpatient (BNV) | payer MEDICARE, MEDICAID, SELFPAY | PROVIDERS: Visit Provider Radiology Diagnostic Radiology | DX: M25.559 Pain in unspecified hip (principal) | CPT/HCPCS: 72170 ==

== ENCOUNTER 2025-03-28 06:22 | Outpatient (REF) | payer MEDICARE, MEDICAID, SELFPAY ==
--- NOTE | ~2025-03-28 | FL_ITS ---
EXAMINATION: FL GUIDANCE ONLY HISTORY: M54.16 - Radiculopathy, lumbar region COMPARISON: None available. TECHNIQUE: Fluoroscopy time: 0.2 minutes. Cumulative Dose: 5.87 mGy. DAP: 0.35111 mGym2 Images: 2. FINDINGS: AP and lateral fluoroscopic spot films of the lumbar spine demonstrate a needle in the region of the right L5-S1 facet joint. FL/FL guidance in treatment room IMPRESSION: Fluoroscopy during procedure. Please see procedure report for additional information. Electronically signed by: Elmer Schulz MD 03/28/2025 12:23 PM EDT
--- OUTSIDE RECORDS SUMMARY | 2025-03-28 06:25 | XMS_ITS | Clinical Summary ---
Author Organization Patient Business Ser [facility] Address [address] [place] [address] Care Team Providers Care Cloth Dyer Name Role Phone Bronson Adhikari Primary Care Provider [phone] Social History Tobacco Use Types Packs/Day Years [...] Health Maintenance Due Date Last Done Comments Diabetes: Annual Foot Exam 1980 Diabetes: Annual Retina Eye Exam 1980 Hepatitis B Vaccines (1 of 3 - 19+ 3-dose series) 1989 Cervical Cancer Screening: Pap Smear 01/01/1992 Colorectal Cancer Screening: Colonoscopy 05/23/2020 HIV Screening 05/23/2020 Lung Cancer Screening (Low Dose CT) 05/23/2020 Social Influencers of Health Screening 05/23/2020 COVID-19 Vaccine () 06/05/2024 Diabetes: Annual Urine Albumin-Creatinine Ratio (uACR) 03/17/2025 03/14/2024 Diabetes: Blood Sugar Control Test (HGBA1C) 06/16/2025 12/14/2024 Diabetes: Annual GFR (Glomerular Filtration Rate) 12/14/2025 12/14/2024 Hypertension/CHF/CAD Annual BMP Blood Test 12/14/2025 12/14/2024 Depression Screening 03/17/2026 03/17/2025 Breast Cancer Screening 07/13/2026 07/13/20, 07/10/2023, 07/07/2022, Additional history exists DTaP,Tdap,and Td Vaccines (3 - Td or Tdap) 12/05/2026 12/05/2016, 03/26/2016 Cholesterol Screening (Lipid Panel) 03/14/2029 03/14/2024, 03/14/2024, 09/16/2022, Additional history exists Hepatitis C Screening Completed 07/08/2021 Zoster Vaccines Completed 09/04/2021, 07/05/2021 Pneumococcal Vaccine: 50+ Years Completed 11/19/2022, 03/05/2022 Pneumococcal Vaccine: Pediatrics (0 to 5 Years) and At-Risk Patients (6 to 64 Years) Completed 11/19/2022, 03/05/2022 Influenza Vaccine Completed 06/28/2024, , 06/26/2022, Additional history exists HIB Vaccines Aged Out [...] Procedure Name Priority Date/Time Associated Diagnosis Comments [facility] SCREENING DIGITAL Routine 07/13/2024 8:15 AM EDT Encounter for screening mammogram for malignant neoplasm of breast from Last 3 Months or Most Recently Relevant to Health Maintenance Results * [facility] SCREENING DIGITAL (07/13/2024 8:15 AM EDT) Anatomical Region Laterality Modality Mammography 07/12/2024 3:17 PM EDT Narrative 07/13/2024 8:15 AM EDT [facility] Diagnostic Imaging Department [address] [place] [id number] Patient: INMAN COREEN DAVIS./Age/Sex: 1970 - 53 - F Unit#: [id number] Location/Status: [facility] CLI Mnemonic/Ordering Site: [facility] Ordering Physician: BRONSON ADHIKARI [facility] Screening Digital - 07/12/24 - 1530 Report Status:Signed EXAM: [facility] Screening Digital EXAM DATE AND TIME: 07/12/2024 3:31 PM HISTORY: Screening. COMPARISON: 07/10/23, 07/07/22, 07/05/21 TECHNIQUE: Bilateral digital breast tomosynthesis was performed in the CC and MLO projections. Computer aided detection with [employer] 3D 3.1 was employed. TISSUE DENSITY: b. There are scattered areas of fibroglandular density. FINDINGS: No suspicious masses, grouped microcalcifications, or areas of architectural distortion are seen. Microcalcifications are again seen in the upper outer quadrants of both breasts, stable from previous studies. The skin and vascularity are unremarkable. IMPRESSION: Stable mammographic appearance of the breasts. No evidence of malignancy is seen. A negative mammogram in the presence of a clinically suspicious palpable abnormality does not preclude the possibility of malignancy or alter the indications for biopsy. BI-RADS: Category 2: Benign RECOMMENDATION(S): 1: Routine screening mammogram BILATERAL in 1 year. Mammogram performed at [facility] [place] [address] Dictating Physician: FLOR BROTHERS MD Electronically Signed by: FLOR BROTHERS MD Dic Date/Time: 07/13/24813 Sign date/Time: 07/13/24814 Procedure Note Flor Brothers MD - 08/02/2024 [facility] Diagnostic Imaging Department [address] [place] [address] Patient: STORM DAVISCOREEN D.O.B./Age/Sex: 1970 - 53 - F Unit#: [id number] Location/Status: [facility] CLI Mnemonic/Ordering Site: [facility] Ordering Physician: BRONSON ADHIKARI [facility] Screening Digital - 07/12/24 - 1530 Report Status:Signed EXAM: [facility] Screening Digital EXAM DATE AND TIME: 07/12/2024 3:31 PM HISTORY: Screening. COMPARISON: 07/10/23, 07/07/22, 07/05/21 TECHNIQUE: Bilateral digital breast tomosynthesis was performed in the CCand MLO projections. Computer aided detection with [employer] 3D 3.1was employed. TISSUE DENSITY: b. There [...] Mammogram performed at [facility] [place] [address] Dictating Physician: FLOR BROTHERS MD Electronically Signed by: FLOR BROTHERS MD Dic Date/Time: 07/13/24813 Sign date/Time: 07/13/24814 Bronson [facility] IMG BI PROCEDURES Final Result from Last 3 Months or Most Recently Relevant to Health Maintenance Advance Directives Documents on File Type Date Recorded Patient Python Consultant Expl anation Health Care Decision (hx) 08/24/2015 [...] (hx) 08/21/2015 AD ARRIAGA DIRECTIVE Care Teams Cloth Dyer Relationship Specialty Start Date End Date Bronson Adhikari PA [address] [place] [address] PCP - General Internal Medicine 03/11/19
== END 2025-03-28 06:23 | disposition home or self-care (01) ==
LOC: CF 06:22
PROVIDERS: Visit Provider Anesthesiology
DX: M54.16 Radiculopathy, lumbar region (principal)
CPT/HCPCS: 64479; 64483; J2003; J3301; Q9967

== ENCOUNTER 2025-03-28 10:03 | Outpatient (AMB) | payer MEDICARE, MEDICAID, SELFPAY ==
[2025-03-28 10:05] VITALS: BP 125/97; PULSE 88; RESP 16; O2SAT 97
--- NOTE | 2025-03-28 10:05 | MHC.OFFVIS ---
Vital Signs 03/28/25 10:05 03/28/25 10:40 BP 125/97 H 131/78 Blood Pressure Location Lt brachial Lt brachial Position Sitting Sitting Respiration 16 16 Pulse 88 93 Pulse Source Pulse Oximeter Pulse Oximeter Pulse Oximetry (%) 97 97 Oxygen Delivery Method Room Air Room Air Intake Visit Reasons: RIGHT L5, S1 TFESI Allergies oxycodone Allergy (Severe, Verified 03/16/25 13:14) Anaphylaxis Penicillins Adverse Reaction (Severe, Verified 03/16/25 13:14) rash [facility] Medical History GERD (gastroesophageal reflux disease) Fibromyalgia Hypertension Asthma T2DM (type 2 diabetes mellitus) Uterine fibroid Hypothyroidism JUAREZ (obstructive sleep apnea) Lipoma of back Diverticulitis PTSD (post-traumatic stress disorder) Physical Exam Vital Signs: Last Vital Signs Pulse 93 03/28/25 10:40 Resp 16 03/28/25 10:40 BP 131/78 03/28/25 10:40 Pulse Ox 97 03/28/25 10:40 Oxygen Delivery Method Room Air 03/28/25 10:40 Assessment & Plan Assessment & Plan (1) Lumbar radiculopathy: Code(s): M54.16 - Radiculopathy, lumbar region Category: Medical Plan Transforaminal right L5-S1 epidural steroid injection . Informed consent was thoroughly explained to the patient before the procedure.? The patient came to the operating room.? She was positioned prone on operating table with a pillow under his abdomen.? Time-out was performed delineating correct site and side of the procedure, nature of the injection, name and date of of the patient. The lower back of the patient was prepped with ChloraPrep and draped with sterile utility towels.? C-arm was brought over the operating field and sq picture of L5 was demonstrated on the screen.? The right side was chosen as the side of the injection.? Tilting machine ipsilateral to the right at the level of L45 1st the most prominent picture of the right pedicle was obtained on the screen.? 3 mm below the level of the lowest point of the pedicle projection to the skin small amount of lidocaine 1% 3-4 cc was injected to anesthetize the skin.? After that 5 in 22 gauge Quincke point needle was inserted through the skin wheal and was advanced toward the L5-S1 foramina on anterior posterior , lateral and oblique views intermittently.? When needle reached appropriate positioned injection of the contrast was performed delineating epidural and perineural spread of the contrast. No intravascular no intra neuro and no intrathecal spread of the contrast was noted. After that injection of the 3 cc of lidocaine 1% mixed with Kenalog 40 mg was performed into the needle. Upon completion of the injection needle was removed sterile Band-Aid was applied. Patient tolerated the procedure well. Orders: Orders FL guidance in treatment room Today M54.16 - Radiculopathy, lumbar region Coding Level of Care Code Procedure Only Diagnoses Lumbar radiculopathy M54.16
[2025-03-28 10:40] VITALS: BP 131/78; PULSE 93; RESP 16; O2SAT 97
== END 2025-03-28 10:43 | disposition home or self-care (01) ==
LOC: HO.PMCPRC 10:03
PROVIDERS: Visit Provider Anesthesiology
DX: M54.16 Radiculopathy, lumbar region (principal)
CPT/HCPCS: 64479

== ENCOUNTER 2025-04-18 11:01 | Outpatient (AMB) | payer MEDICARE, MEDICAID, SELFPAY ==
--- NOTE | 2025-04-18 11:03 | A.OFFVIS_ITS ---
Vital Signs 3 04/18/25 11:06 Height 5 ft 7 in Weight 213 lb BMI 33.4 BP 145/85 H Blood Pressure Location Lt brachial Position Sitting Pulse 81 Pulse Source Pulse Oximeter Pulse Oximetry (%) 97 Oxygen Delivery Method Room Air Intake Visit Reasons: RIGHT L5, S1 TFESI Intake Note: Pain today 2/10 Packing Supervisor Required: No Accompanied by: Self / Same As Patient Allergies oxycodone Allergy (Severe, Verified 04/18/25 11:07) Anaphylaxis Penicillins Adverse Reaction (Severe, Verified 04/18/25 11:07) rash HPI Comments Details: Patient presents today to assess response to RIGHT L5, S1 TFESI on 03/28/[address] Paez. Patient reports 80% ongoing pain relief since procedure with improvement in her daily activities and functioning, mobility or sleep. She reports that the injection has reduced her pain to 2/10, which is a significant improvement from her baseline pain levels. The patient has a history of sacroiliac joint dysfunction, with diagnostic SI joint injections performed last August that did not provide pain relief. She continues to experience back pain on the left side, similar to previous episodes. The patient also has a history of diabetes mellitus, with recent A1c levels reported slightly above 8. She is advised to follow up with her PCP with goal to achieve an A1c of 7.5 or less before proceeding with further injections to avoid exacerbating her condition. Denies any recent cough, cold, infection, fever or any significant changes in medical history since last office visit. Past Procedures: 03/28/25: Right L5-S1 TFESI-80% ongoing pain relief 01/10/25: Right intra-articular hip steroid injection with fluoroscopy-40% pain relief 10/25/24: Right L4-L5 TFESI-0% pain relief 08/09/24: Bilateral Diagnostic SIJ injections- 0% pain relief PRIOR: Patient is a 53 years old female presents today for low back pain with bilateral radiculopathy. She was referred to our office by [facility] for diagnostic right sacroiliac joint injection. Denies any recent trauma, injury or falls. Back pain is axial and also extends to sacral and buttocks areas and into her groin and posterior thighs, worse on the right. She also experiences significant right groin pain with internal and external hip rotations and weight bearing. She ambulates with antalgic gait with limping, favoring left side. Pain is worse with prolonged sitting, driving, changing positions from sitting to standing, walking, climbing stairs and most movements. She also reports moderate pain with lumbar extension and axial rotations. Patient utilizes cane with ambulation. She completed multiple courses of physical therapy, has been taking OTC medications, gabapentin, lidocaine patches with continued symptoms. Reports PT exacerbated her pain symptoms. Pain has been present for over 10 years and has been resistant to conservative treatments. Pain affects her daily activities and functioning, mobility, sleep, mood and quality of life. She completed lumbar spine MRI report at [facility] and had Neurosurgical evaluation by [facility] with no surgical recommendations at this time. Patient is interested to undergo bilateral diagnostic sacroiliac joint injections as next steps. Denies any fever, chills, abdominal pain, chest pain, headache, dizziness, numbness or tingling, weakness, foot drop, bladder or bowel dysfunction or saddle anesthesia. [facility] Medical History GERD (gastroesophageal reflux disease) Fibromyalgia Hypertension Asthma T2DM (type 2 diabetes mellitus) Uterine fibroid Hypothyroidism JUAREZ (obstructive sleep apnea) Lipoma of back Diverticulitis PTSD (post-traumatic stress disorder) Review of Systems Const Details: - Musculoskeletal: Reports left-sided pain, similar to previous episodes - Neurological: Reports numbness and tingling in both legs, denies bladder or bowel dysfunction or saddle anesthesia. All systems reviewed & are unremarkable except as noted in HPI and below Physical Exam Vital Signs: Last Vital Signs Pulse 81 04/18/25 11:06 BP 145/85 H 04/18/25 11:06 Pulse Ox 97 04/18/25 11:06 Oxygen Delivery Method Room Air 04/18/25 11:06 BMI result Body Mass Index 33.4 General: Appears afebrile. Alert and oriented. Mood and affect appropriate. Follows and participates in conversation appropriately. Respiratory effort is unlabored. No cough. Able to transition from sit to stand unassisted. Ambulates with normal heel strike and toe off on the left, reports imbalance and unsteadiness on the right due to pain. General: Yes no CVA tenderness Back/Spine/Pelvis Other: Limited lumbar ROM due to pain. Antalgic gait with mild limping. Lumbar extension and flexion forward reproduces mild to moderate pain. Demonstrates 5/5 strength of quadriceps bilaterally as well as flexion/dorsiflexion of bilateral feet against resistance. 2+ pedal pulses bilaterally. Seated straight leg rise with dorsiflexion positive bilaterally. +1 patellar and achilles reflexes bilaterally. Facet loading test positive bilaterally. Yusuf sign, Chalino?s, Gaenslen, Pelvic compression and Stinchfield tests are positive bilaterally, left>right. Mild groin pain with I/E hip rotations, right>left. Valsalva maneuver is negative. Back: no CVA tenderness Cervical Spine: cervical ROM normal, cervical muscular tenderness and No Cervical spine tenderness Thoracic/Lumbar Spine: thoracic and lumbar spine normal to inspection, No Thoracic/lumbar spine scar(s), Lasegue's sign positive bilateral and diffuse, pain with thoraco-lumbar ROM, paraspinal muscle tenderness bilaterally, thoraco- lumbar ROM limited, No thoracic spinal tenderness and lumbar spinal tenderness (L4-S1) Pelvis: buttock tenderness bilaterally Sacroiliac joints: bilaterally tender to palpation Extrem General: Yes capillary refill normal, Yes no clubbing, cyanosis or edema and Yes no calf tenderness Results Reviewed Results Reviewed: XR BILATERAL HIPS WITH AP PELVIS 04/01/24 FINDINGS: Degenerative changes in the imaged lower lumbar spine. Moderate degenerative changes in the bilateral sacroiliac joints. Iqit-qb-auaptebr degenerative changes in bilateral hips with joint space narrowing and lateral acetabular hypertrophic change. Sclerotic focus overlying the right humeral head may represent a bony lesion such as a bone island versus less likely soft tissue calcification. IMPRESSION: 1. Feen-ok-oodhdzgw degenerative changes in bilateral hips. 2. Moderate degenerative changes in the bilateral sacroiliac joints. 3. Degenerative changes in the imaged lower lumbar spine. Assessment & Plan Assessment & Plan (1) Lumbosacral spondylosis: Code(s): M47.817 - Spondylosis without myelopathy or radiculopathy, lumbosacral region Category: Medical (2) Lumbar degenerative disc disease: Code(s): M51.36 - Other intervertebral disc degeneration, lumbar region Category: Medical (3) Lumbar radiculopathy: Code(s): M54.16 - Radiculopathy, lumbar region Category: Medical (4) SI (sacroiliac) joint dysfunction: Code(s): M53.3 - Sacrococcygeal disorders, not elsewhere classified Category: Medical (5) Sacroiliitis: Code(s): M46.1 - Sacroiliitis, not elsewhere classified Category: Medical (6) Osteoarthritis of hips, bilateral: Code(s): M16.0 - Bilateral primary osteoarthritis of hip Category: Medical Plan The patient will continue to monitor her pain levels following the recent right L5-S1 transforaminal epidural steroid injection, which has reduced her pain to 2/10. If pain levels increase to baseline, she is advised to contact the clinic for re-evaluation. She reports improvement in her daily activities, mobility and sleep. Will consider to address left sided radiculopathy with left L5-S1 injection is planned once her A1c level is reduced to 7.5 or less to minimize risks associated with steroid injections in diabetic patients. She also has persistent bilateral SI joint pain but had no pain relief with diagnostic SI joint injections. All questions and concerns have been answered and patient agreed with the plan. Follow up as needed. Patient was informed and verbally consented to the use of an ambient scribe for clinic note documentation during this visit. Coding Level of Care Code Est Pt Level 3 (14422) Complex EM visit Add On G2211 Diagnoses Lumbosacral spondylosis M47.817 Lumbar degenerative disc disease M51.36 Lumbar radiculopathy M54.16 SI (sacroiliac) joint dysfunction M53.3 Sacroiliitis M46.1 Osteoarthritis of hips, bilateral M16.0
[2025-04-18 11:06] VITALS: BP 145/85; PULSE 81; O2SAT 97; BMI 33.4
--- OUTSIDE RECORDS SUMMARY | 2025-04-18 12:24 | XMS_ITS | Clinical Summary ---
Author Organization Patient Business Ser [facility] [place] Address [address] [place] [address] Care Team Providers Care Caramel Candy Maker Helper Name Role Phone Bronson Adhikari Primary Care Provider [phone] Encounters Date Type Department Care Team Description 04/01/2025 3:18 PM EDT - 04/01/2025 11:59 PM EDT Hospital Encounter [facility] Ultrasound [address] [place] [id number] Thyroid nodule Discharge Disposition: Home or Self Care from Last 3 Months Social History Tobacco Use Types Packs/Day Years Used Date Smoking Tobacco: Former Smokeless Tobacco: Never Comments Unknown Sex and Gender Information Value Date Recorded Sex Assigned at Female 03/31/2025 4:13 PM EDT Legal Sex Female 3:44 AM EDT Gender Identity Female 03/31/2025 4:13 PM EDT Sexual Orientation Straight 03/31/2025 4: 13 PM EDT Obstetrics History Last Filed Vital Signs Vital [...] Lung Cancer Screening (Low Dose CT) 05/23/2020 Medicare Annual Wellness Visit 05/23/2020 Social Influencers of Health Screening 05/23/2020 COVID-19 Vaccine ( season) 2024 Influenza Vaccine (#1) 2025 , 06/23/2023, 06/26/2022, Additional history exists Diabetes: Blood Sugar Control Test (HGBA1C) 09/16/2025 03/17/2025, 12/14/2024 Diabetes: Annual GFR (Glomerular Filtration Rate) 12/14/2025 12/14/2024 Hypertension/CHF/CAD Annual BMP Blood Test 12/14/2025 12/14/2024 Depression Screening 03/17/2026 03/17/2025 Diabetes: Annual Urine Albumin-Creatinine Ratio (uACR) 03/17/2026 03/17/2025, 03/14/2024 Breast Cancer Screening 07/13/2026 07/13/20 24, 07/10/2023, 07/07/2022, Additional history exists DTaP,Tdap,and Td Vaccines (3 - Td or Tdap) 12/05/2026 12/05/2016, 03/26/2016 Cholesterol Screening (Lipid Panel) 03/17/2030 03/17/2025, 03/17/2025, 03/14/2024, Additional history exists Hepatitis C Screening Completed 07/08/2021 Zoster Vaccines Completed 09/04/2021, 07/05/2021 Pneumococcal Vaccine: 50+ Years Completed 11/19/2022, 03/05/2022 HIB Vaccines Aged Out No longer eligi [...] Procedure Name Priority Date/Time Associated Diagnosis Comments US HEAD NECK SOFT TISSUE Routine 04/01/2025 3:51 PM EDT Thyroid nodule DREW SCREENING DIGITAL Routine 07/13/2024 8:15 AM EDT Encounter for screening mammogram for malignant neoplasm of breast from Last 3 Months or Most Recently Relevant to Health Maintenance Results * US Head Neck Soft Tissue (04/01/2025 3:51 PM EDT) Anatomical Region Laterality Modality Head and Neck Ultrasound 04/03/2025 8:53 AM EDT Impressions 04/03/2025 8:54 AM EDT Normal sonographic appearance of the thyroid gland. Interval decrease in size of a left submandibular lymph node. -------- FINAL REPORT -------- Dictated By: Diego Retana Dictated Date: 04/03/2025 08:53 ET Assigned Physician: Diego Retana Reviewed and Electronically Signed By: Diego Retana Signed Date: 04/03/2025 08:54 ET Workstation ID: [id number] Transcribed By: Self Edit Transcribed Date: 04/03/2025 08:53 ET Narrative 04/03/2025 8:54 AM EDT PROCEDURE: Thyroid ultrasound. HISTORY: thyroid nodule. TECHNIQUE: Grayscale and color Doppler ultrasound evaluation of the thyroid gland. COMPARISON: 11/11/2021. FINDINGS: The right lobe measures 3.7 x 1.9 x 1.5 cm. The left lobe measures 4.3 x 1.3 x 1.2 cm. The isthmus measures 2 mm AP. No thyroid nodule. There is a 9 x 4 x 5 mm left submandibular lymph node. This has decreased in size compared with the previous study, where it measured 11 x 5 x 19 mm. Procedure Note Diego Retana MD - 04/03/2025 PROCEDURE: Thyroid ultrasound. HISTORY: thyroid nodule. TECHNIQUE: Grayscale and color Doppler ultrasound evaluation of thethyroid gland. COMPARISON: 11/11/2021. FINDINGS: The right lobe measures 3.7 x 1.9 x 1.5 cm. The left lobe measures 4.3 x 1.3 x 1.2 cm. The isthmus measures 2 mm AP. No thyroid nodule. There is a 9 x 4 x 5 mm left submandibular lymph node. This has decreasedin size compared with the previous study, where it measured 11 x 5 x 19mm. IMPRESSION: Normal sonographic appearance of the thyroid gland. Interval decrease in size of a left submandibular lymph node. -------- FINAL REPORT -------- Dictated By: Diego Retana Dictated Date: 04/03/2025 08:53 ET Assigned Physician: Diego Retana Reviewed and Electronically Signed By: Diego Retana Signed Date: 04/03/2025 08:54 ET Workstation ID: [id number] Transcribed By: Self Edit Transcribed Date: 04/03/2025 08:53 ET us Franchesca [facility] IMG US PROCEDURES Final Resul t * DREW SCREENING DIGITAL (07/13/2024 8:15 AM EDT) Anatomical Region Laterality Modality Mammography 07/12/2024 3:17 PM EDT Narrative 07/13/2024 8:15 AM EDT [facility] Diagnostic Imaging Department [address] [place] [id number] Patient: COREEN PINK/Age/Sex: 1970 - 53 - F Unit#: [id number] Location/Status: SPDIMAM/REG CLI Mnemonic/Ordering Site: [facility] Ordering Physician: BRONSON ADHIKARI [facility] Screening Digital - 07/12/24 - 1530 Report Status:Signed EXAM: [facility] Screening Digital EXAM DATE AND TIME: 07/12/2024 3:31 PM HISTORY: Screening. COMPARISON: 07/10/23, 07/07/22, 07/05/21 TECHNIQUE: Bilateral digital breast tomosynthesis was performed in the CC and MLO projections. Computer aided detection with [employer] 3D 3.1 was employed. TISSUE DENSITY: b. [...] Mamm[facility] performed at [facility] [address] [place] [address] Dictating Physician: FLOR BROTHERS MD Electronically Signed by: FLOR BROTHERS MD Dic Date/Time: 07/13/24813 Sign date/Time: 07/13/24814 Procedure Note Flor Brothers MD - 08/02/2024 [facility] Diagnostic Imaging Department [address] [place] [id number] Patient: COREEN PINK /Age/Sex: 1970 - 53 - F Unit#: [id number] Location/Status: SPDIMAM/REG CLI Mnemonic/Ordering Site: [facility] Ordering Physician: BRONSON ADHIKARI [facility] Screening Digital - 07/12/24 - 0550 Report Status:Signed EXAM: [facility] Screening Digital EXAM DATE AND TIME: 07/12/2024 3:31 PM HISTORY: Screening. COMPARISON: 07/10/23, 07/07/22, 07/05/21 TECHNIQUE: Bilateral digital breast tomosynthesis was performed in the CCand MLO projections. Computer aided detection with [employer] 3D 3.1was employed. TISSUE DENSITY: b. There [...] Mammogram performed at [place] [address] Dictating Physician: FLOR BROTHERS MD Electronically Signed by: FLOR BROTHERS MD Dic Date/Time: 07/13/24813 Sign date/Time: 07/13/24814 Bronson [facility] IMG BI PROCEDURES Final Result from Last 3 Months or Most Recently Relevant to Health Maintenance Insurance MEDICARE [place]ICA[place] Advance Directives Documents on File Type Date Recorded Patient Supervisor Locomotive Expl anation Health Care Decision (hx) 08/24/2015 [...] (hx) 08/21/2015 AD ARRIAGA DIRECTIVE Care Teams Caramel Candy Maker Helper Relationship Specialty Start Date End Date Bronson Adhikari PA [address] [place] [address] PCP - General Internal Medicine 03/11/19
--- OUTSIDE RECORDS SUMMARY | 2025-04-18 12:24 | XMS_ITS | Encounter Summary ---
Author Organization [facility] Address [address] [place] [address] Care Team Providers Care Sr. Vendor Management Associate Name Role Phone Coy Adhikari Primary Care Provider [phone] Reason for Visit * Reason Comments Prior Authorization Encounter Details Date Type Department Care Team (Late st Contact Info) Description 04/14/2025 Interim Notes [facility] Main [address] [place] [phone] [place], [place] [address] [place] [address] Social History Tobacco Use Types Packs/Day Years Used Date Smoking Tobacco: Former Cigarettes 2 30 1 980 - 10/05/2009 Smokeless Tobacco: Former Quit: 03/13/2011 Alcohol Use Standard Drinks/Week Comments Yes 0 (1 standard drink = 0.6 oz pur e alcohol) socially Social Connections Answer Date Recorded Connectedness 1 [...] Orientation Straight 01/20/2018 10 :13 AM PDT documented as of this encounter Progress Notes * Karlie Celis MA - 04/14/2025 10:22 AM EDT Hythiam Ranulfo [employer] [place] PA Approved till 04/13/2026 documented in this encounter Plan of Treatment Upcoming Encounters Date Type Department Care Team (Late st Contact Info) Description 06/15/2025 2:40 PM EDT /MH Visits [address] [phone] Lynette Osborne [address] [place] [phone] Ladonna Sousa PMHNP [address] [place] [phone] documented as of this encounter Goals Goal Patient Goal Type Associated Problems Recent Progress Patient-Stated? Author Blood Pressure < 130/80 Blood Pressure HTN (hypertension) 122/82(2024 3:41 PM EDT) No Nicki Riley, PharmD HEMOGLOBIN A1C < 7.0 Result Component Diabetes mellitus ([facility]) 8.1( 3:30 PM EDT) No Nicki Riley, PharmD documented as of this encounter Visit Diagnoses Not on filedocumented in this encounter Additional Health Concerns Assessment Noted Time PHQ-9 Depression Total Score: 0 03/17/20 25 1:56 PM PDT documented as of this encounter Care Teams Sr. Vendor Management Associate Relationship Specialty Start Date End Date Coy Adhikari PA [address] [place] [address] PCP - General Internal Medicine 04/10/17 documented as of this encounter
== END 2025-04-18 11:15 | disposition home or self-care (01) ==
LOC: HO.PMC 11:02
PROVIDERS: PCP Physician Assistant; Visit Provider Nurse Practitioner Family
DX: M47.817 Spondylosis without myelopathy or radiculopathy, lumbosacral region (principal); M51.369 Other intervertebral disc degeneration, lumbar region without mention of lumbar back pain or lower extremity pain; M54.16 Radiculopathy, lumbar region; M53.3 Sacrococcygeal disorders, not elsewhere classified; M46.1 Sacroiliitis, not elsewhere classified; M16.0 Bilateral primary osteoarthritis of hip
CPT/HCPCS: 99213; G2211

== ENCOUNTER → 2025-04-18 11:01 | Outpatient (BNVA) | payer MEDICARE, MEDICAID, SELFPAY | PROVIDERS: PCP Physician Assistant; Visit Provider Nurse Practitioner Family | DX: M47.817 Spondylosis without myelopathy or radiculopathy, lumbosacral region (principal); M51.369 Other intervertebral disc degeneration, lumbar region without mention of lumbar back pain or lower extremity pain; M54.16 Radiculopathy, lumbar region; M53.3 Sacrococcygeal disorders, not elsewhere classified; M46.1 Sacroiliitis, not elsewhere classified; M16.0 Bilateral primary osteoarthritis of hip | CPT/HCPCS: 99212 ==

== ENCOUNTER 2025-06-02 11:15 | Outpatient (AMB) | payer MEDICARE, MEDICAID, SELFPAY ==
--- NOTE | 2025-06-02 11:21 | MHC.OFFVIS ---
Vital Signs 06/02/25 11:22 Height 5 ft 7 in Weight 208 lb 4 oz BMI 32.6 BP 130/74 Blood Pressure Location Lt brachial Position Sitting Pulse 86 Pulse Source Pulse Oximeter Pulse Oximetry (%) 100 Oxygen Delivery Method Room Air Intake Visit Reasons: Back pain Intake Note: Pain today 06/14 Softball Core Molder Required: No Accompanied by: Self / Same As Patient Allergies oxycodone Allergy (Severe, Verified 06/02/25 11:23) Anaphylaxis Penicillins Adverse Reaction (Severe, Verified 06/02/25 11:23) rash HPI Comments Details: The patient is a 54-year-old female presenting with chronic pain management concerns. The pain is primarily located in the right lower back radiates into right buttock and down into posterior lower back and has been persistent despite previous interventions. The patient has a history of sacroiliac joint pain, for which she underwent a diagnostic injection last August, resulting in no pain relief. Subsequent interventions included an epidural steroid injection and a hip injection, with only the right L5-S1 injection providing good but temporary relief. The patient has been under the care of Neurosurgery, having seen FRANCISCO Garcia, in March 2024, who assessed her MRI and referred her for an SI joint injection. Despite these efforts, the sacroiliac joint injection did not alleviate her pain, leading to further exploration of sciatica as the underlying issue. Denies any recent cough, cold, infection, fever or any significant changes in medical history since last office visit. PRIOR: Patient presents today to assess response to RIGHT L5, S1 TFESI on 03/28/[address] Paez. Patient reports 80% ongoing pain relief since procedure with improvement in her daily activities and functioning, mobility or sleep. She reports that the injection has reduced her pain to 2/10, which is a significant improvement from her baseline pain levels. The patient has a history of sacroiliac joint dysfunction, with diagnostic SI joint injections performed last August that did not provide pain relief. She continues to experience back pain on the left side, similar to previous episodes. The patient also has a history of diabetes mellitus, with recent A1c levels reported slightly above 8. She is advised to follow up with her PCP with goal to achieve an A1c of 7.5 or less before proceeding with further injections to avoid exacerbating her condition. Denies any recent cough, cold, infection, fever or any significant changes in medical history since last office visit. Past Procedures: 03/28/25: Right L5-S1 TFESI-80% ongoing pain relief 01/10/25: Right intra-articular hip steroid injection with fluoroscopy-40% pain relief 10/25/24: Right L4-L5 TFESI-0% pain relief 08/09/24: Bilateral Diagnostic SIJ injections- 0% pain relief PRIOR: Patient is a 53 years old female presents today for low back pain with bilateral radiculopathy. She was referred to our office by [facility] for diagnostic right sacroiliac joint injection. Denies any recent trauma, injury or falls. Back pain is axial and also extends to sacral and buttocks areas and into her groin and posterior thighs, worse on the right. She also experiences significant right groin pain with internal and external hip rotations and weight bearing. She ambulates with antalgic gait with limping, favoring left side. Pain is worse with prolonged sitting, driving, changing positions from sitting to standing, walking, climbing stairs and most movements. She also reports moderate pain with lumbar extension and axial rotations. Patient utilizes cane with ambulation. She completed multiple courses of physical therapy, has been taking OTC medications, gabapentin, lidocaine patches with continued symptoms. Reports PT exacerbated her pain symptoms. Pain has been present for over 10 years and has been resistant to conservative treatments. Pain affects her daily activities and functioning, mobility, sleep, mood and quality of life. She completed lumbar spine MRI report at [facility] and had Neurosurgical evaluation by [facility] with no surgical recommendations at this time. Patient is interested to undergo bilateral diagnostic sacroiliac joint injections as next steps. Denies any fever, chills, abdominal pain, chest pain, headache, dizziness, numbness or tingling, weakness, foot drop, bladder or bowel dysfunction or saddle anesthesia. REPLACED BY [facility] Medical History GERD (gastroesophageal reflux disease) Fibromyalgia Hypertension Asthma T2DM (type 2 diabetes mellitus) Uterine fibroid Hypothyroidism JUAREZ (obstructive sleep apnea) Lipoma of back Diverticulitis PTSD (post-traumatic stress disorder) Review of Systems Const All systems reviewed & are unremarkable except as noted in HPI and below Physical Exam Vital Signs: Last Vital Signs Pulse 86 06/02/25 11:22 BP 130/74 06/02/25 11:22 Pulse Ox 100 06/02/25 11:22 Oxygen Delivery Method Room Air 06/02/25 11:22 BMI result Body Mass Index 32.6 General: Appears afebrile. Alert and oriented. Mood and affect appropriate. Follows and participates in conversation appropriately. Respiratory effort is unlabored. No cough. Able to transition from sit to stand unassisted. Ambulates with normal heel strike and toe off on the left, reports imbalance and unsteadiness on the right due to pain. General: Yes no CVA tenderness Back/Spine/Pelvis Other: Limited lumbar ROM due to pain. Antalgic gait with mild limping. Lumbar extension and flexion forward reproduces mild to moderate pain. Demonstrates 5/5 strength of quadriceps bilaterally as well as flexion/dorsiflexion of bilateral feet against resistance. 2+ pedal pulses bilaterally. Seated straight leg rise with dorsiflexion positive on the right. +2 patellar and +1 achilles reflexes bilaterally. Facet loading test positive bilaterally. Chalino?s, Pelvic compression and Stinchfield tests are positive bilaterally, left>right. Mild groin pain with I/E hip rotations, right>left. Valsalva maneuver is negative. Back: no CVA tenderness Cervical Spine: cervical ROM normal, cervical muscular tenderness and No Cervical spine tenderness Thoracic/Lumbar Spine: thoracic and lumbar spine normal to inspection, No Thoracic/lumbar spine scar(s), Lasegue's sign positive on the right and localized, pain with thoraco-lumbar ROM, paraspinal muscle tenderness bilaterally, thoraco-lumbar ROM limited, No thoracic spinal tenderness and lumbar spinal tenderness (L4-S1) Pelvis: buttock tenderness on the right Sacroiliac joints: bilaterally tender to palpation Results Reviewed Results Reviewed: XR BILATERAL HIPS WITH AP PELVIS 04/01/24 FINDINGS: Degenerative changes in the imaged lower lumbar spine. Moderate degenerative changes in the bilateral sacroiliac joints. Euhp-rv-jknazkmd degenerative changes in bilateral hips with joint space narrowing and lateral acetabular hypertrophic change. Sclerotic focus overlying the right humeral head may represent a bony lesion such as a bone island versus less likely soft tissue calcification. IMPRESSION: 1. Wfjg-zx-[id number] degenerative changes in bilateral hips. 2. Moderate degenerative changes in the bilateral sacroiliac joints. 3. Degenerative changes in the imaged lower lumbar spine. Assessment & Plan Assessment & Plan (1) Lumbosacral spondylosis: Code(s): M47.817 - Spondylosis without myelopathy or radiculopathy, lumbosacral region Category: Medical (2) Lumbar degenerative disc disease: Code(s): M51.36 - Other intervertebral disc degeneration, lumbar region Category: Medical (3) Lumbar radiculopathy: Code(s): M54.16 - Radiculopathy, lumbar region Category: Medical (4) Sacroiliitis: Code(s): M46.1 - Sacroiliitis, not elsewhere classified Category: Medical Plan I discussed with the patient that the sacroiliac joint pain was not relieved by previous injections, indicating it may not be the primary issue. We reviewed the possibility of sciatica being the source of pain, as the L5-S1 injection provided good by temporary relief. I advised the patient to follow up with Neurosurgery to explore surgical options, as she is already established with their care. All questions and concerns have been answered and patient agreed with the treatment plan. Follow up as needed. Patient was informed and verbally consented to the use of an ambient scribe for clinic note documentation during this visit. Coding Level of Care Code Est Pt Level 3 (91757) Complex EM visit Add On G2211 Diagnoses Lumbosacral spondylosis M47.817 Lumbar degenerative disc disease M51.36 Lumbar radiculopathy M54.16 Sacroiliitis M46.1
[2025-06-02 11:22] VITALS: BP 130/74; PULSE 86; O2SAT 100; BMI 32.6
--- OUTSIDE RECORDS SUMMARY | 2025-06-02 12:24 | XMS_ITS | Clinical Summary ---
Author Organization Patient Business Ser [facility] [place] Address [address] [place] [address] Care Team Providers Care Softwood Faller Name Role Phone Bronson Adhikari Primary Care Provider [phone] Encounters Date Type Department Care Team Description 04/01/2025 3:18 PM EDT - 04/01/2025 11:59 PM EDT Hospital Encounter [facility] Ultrasound [address] [place] [phone] Thyroid nodule Discharge Disposition: Home or Self [...] Screening 05/23/2020 COVID-19 Vaccine ( season) 2024 Depression Screening 10/05/2024 Influenza Vaccine (#1) 2025 , 06/23/2023, 06/26/2022, Additional history exists Diabetes: Blood Sugar Control Test (HGBA1C) 09/16/2025 03/17/2025, 12/14/2024 Diabetes: Annual GFR (Glomerular Filtration Rate) 12/14/2025 12/14/2024 Hypertension/CHF/CAD Annual BMP Blood Test 12/14/2025 12/14/2024 Diabetes: Annual Urine Albumin-Creatinine Ratio (uACR) 03/17/2026 03/17/2025, 03/14/2024 Breast Cancer Screening 07/13/2026 07/13/20, 07/10/2023, 07/07/2022, [...] Signed Date: 04/03/2025 08:54 ET Workstation ID: [id number] Transcribed By: Self Edit Transcribed Date: 04/03/2025 [...] Signed Date: 04/03/2025 08:54 ET Workstation ID: [id number] Transcribed By: Self Edit Transcribed Date: 04/03/2025 08:53 ET us Franchesca HENSON IMG US PROCEDURES Final Resul t * DREW SCREENING DIGITAL (07/13/2024 8:15 AM EDT) Anatomical Region Laterality Modality Mammography 07/12/2024 3:17 PM EDT Narrative 07/13/2024 8:15 AM EDT [facility] Diagnostic Imaging Department [address] [place] [address] Patient: COREEN PINK/Age/Sex: 1970 - 53 - F Unit#: [id number] Location/Status: SPDIMAM/REG CLI Mnemonic[facility] Physician: BRONSON ADHIKARI [facility] Screening Digital - 07/12/24 - 1530 Report Status:Signed EXAM: [facility] Screening Digital EXAM DATE AND TIME: 07/12/2024 3:31 PM HISTORY: Screening. COMPARISON: 07/10/23, 07/07/22, 07/05/21 TECHNIQUE: Bilateral digital breast tomosynthesis was performed in the CC and MLO projections. Computer aided detection with [employer] 3D 3.1 was employed. TISSUE DENSITY: b. [...] Mammogram performed at [facility] at [address] [address] Dictating Physician: FLOR BROTHERS MD Electronically Signed by: FLOR BROTHERS MD Dic Date/Time: 07/13/24813 Sign date/Time: 07/13/24814 Procedure Note Flor Brothers MD - 08/02/2024 [facility] Diagnostic Imaging Department [address] [place] [address] Patient: COREEN PINK /Age/Sex: 1970 - 53 - F Unit#: [id number] Location/Status: SPDIMAM/REG CLI Mnemonic/Ordering Site: [facility] Ordering Physician: BRONSON ADHIKARI [facility] Screening Digital - 07/12/24 - 1530 Report Status:Signed EXAM: [facility] Screening Digital EXAM DATE AND TIME: 07/12/2024 3:31 PM HISTORY: Screening. COMPARISON: 07/10/23, 07/07/22, 07/05/21 TECHNIQUE: Bilateral digital breast tomosynthesis was performed in the CCand MLO projections. Computer aided detection with [employer] 3D 3.1was employed. TISSUE DENSITY: b. There [...] Mammogram performed at [facility] [place] [address] Dictating Physician: FLOR BROTHERS MD Electronically Signed by: FLOR BROTHERS MD Dic Date/Time: 07/13/24813 Sign date/Time: 07/13/24814 Bronson HENSON IM BI PROCEDURES Final Result from Last 3 Months or Most Recently Relevant to Health Maintenance Insurance MEDICARE MEDICAID - [place] Advance Directives Documents on File Type Date Recorded Patient Fit Model Expl anation Health Care Decision (hx) 08/24/2015 [...] (hx) 08/21/2015 AD ARRIAGA DIRECTIVE Care Teams Softwood Faller Relationship Specialty Start Date End Date Bronson Adhikari PA [facility] [place] [address] PCP - General Internal Medicine 03/11/19
== END 2025-06-02 11:34 | disposition home or self-care (01) ==
LOC: HO.PMC 11:16
PROVIDERS: PCP Physician Assistant; Visit Provider Nurse Practitioner Family
DX: M47.817 Spondylosis without myelopathy or radiculopathy, lumbosacral region (principal); M51.369 Other intervertebral disc degeneration, lumbar region without mention of lumbar back pain or lower extremity pain; M54.16 Radiculopathy, lumbar region; M46.1 Sacroiliitis, not elsewhere classified
CPT/HCPCS: 99213; G2211

== ENCOUNTER → 2025-06-02 11:15 | Outpatient (BNVA) | payer MEDICARE, MEDICAID, SELFPAY | PROVIDERS: PCP Physician Assistant; Visit Provider Nurse Practitioner Family | DX: M47.817 Spondylosis without myelopathy or radiculopathy, lumbosacral region (principal); M51.369 Other intervertebral disc degeneration, lumbar region without mention of lumbar back pain or lower extremity pain; M54.16 Radiculopathy, lumbar region; M46.1 Sacroiliitis, not elsewhere classified | CPT/HCPCS: 99212 ==

== ENCOUNTER 2025-06-12 13:37 | Outpatient (AMB) | payer MEDICARE, MEDICAID, SELFPAY ==
[2025-06-12 13:41] VITALS: BMI 34.5
--- NOTE | 2025-06-12 13:41 | A.SPINEOV_ITS ---
Vital Signs 06/12/25 13:41 Height 5 ft 7 in Weight 220 lb BMI 34.5 Intake Visit Reasons: F/U LBP R sided sciatica Intake Note: Ms. Abelino Ozuna is here today to F/u on her right sided low back pain. De Icer Kit Assembler Required: No Allergies oxycodone Allergy (Severe, Verified 06/12/25 13:42) Anaphylaxis Penicillins Adverse Reaction (Severe, Verified 06/12/25 13:42) rash Physical Exam Vital Signs: BMI result Body Mass Index 34.5 Assessment & Plan Assessment & Plan (1) Right hip pain: Code(s): M25.551 - Pain in right hip Category: Medical Plan HPI: Coreen is a very pleasant 54-year-old female comes in today for follow up evaluation after being seen in our clinic previously for a low back pain and right-sided lower extremity pain. After previously being her MRI imaging which did not show any meaningful nerve compression, I sent her for a series of SI joint injections with our colleagues in pain management, with the hopes that perhaps this was an SI joint pathology issue. Unfortunately, the patient reports no relief of her pain from SI joint injections. She did have saved some relief from her L5-S1 injection, however this was also not longstanding. She also had right-sided hip injections, and was evaluated by our colleagues in Orthopedics who did not appear that her pain as a result of hip pathology. We again extensively discussed her symptoms which remain the same from her previous office visit. Imaging: I again formally reviewed her MRI imaging of the lumbar spine completed at [facility] which shows no significant nerve impingement throughout the lumbar spine. Plan: Pleasant 54 year old female coming in today for follow up evaluation after SI joint injections. Unfortunately provided little to no relief. Therefore we are not able to offer SI joint fusion as a potential modality to treat her pain. In terms of her fleeting relief from the L5-S1 injection she had with our colleagues in pain management, unfortunately this is not enough on its own to justify lumbar decompression L5-S1 without meaningful nerve impingement seen by us on independent review, nor documented by radiology on formal radiology read of her MRI. Therefore, I encouraged her to continue follow up with our colleagues in pain management for discussion regarding pain treatment modalities. Then EMG of the lower extremities may be beneficial. I repeated lumbar MRI may also be beneficial, as her last MRI was completed over a year ago. Jose Negro MD,PhD [facility] Coding Level of Care Code Global (94409) Diagnoses Right hip pain M25.551
--- OUTSIDE RECORDS SUMMARY | 2025-06-12 15:51 | XMS_ITS | Clinical Summary ---
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 Name Role Phone Bronson Adhikari Primary Care Provider [phone] Encounters Date Type Department Care Team Description 04/01/2025 3:18 PM EDT - 04/01/2025 11:59 PM EDT Hospital Encounter [facility] Ultrasound [address] [place] [phone] Thyroid nodule Discharge Disposition: Home or Self [...] 05/23/2020 Social Influencers of Health Screening 05/23/2020 Depression Screening 10/05/2024 COVID-19 Vaccine ( season) 2025 Influenza Vaccine (#1) 2025 , 06/23/2023, 06/26/2022, [...] -------- FINAL REPORT -------- Dictated By: Diego Reatna Dictated Date: 04/03/2025 08:53 ET Assigned Physician: Diego Retana Reviewed and Electronically Signed By: Diego Retana Signed Date: 04/03/2025 08:54 ET Workstation ID: [id number] Transcribed By: Self Edit Transcribed Date: 04/03/2025 [...] Signed Date: 04/03/2025 08:54 ET Workstation ID: [id number] Transcribed By: Self Edit Transcribed Date: 04/03/2025 08:53 ET us Franchesca HENSON IMG US PROCEDURES Final Resul t * DREW SCREENING DIGITAL (07/13/2024 8:15 AM EDT) Anatomical Region Laterality Modality Mammography 07/12/2024 3:17 PM EDT Narrative 07/13/2024 8:[address] [facility] Diagnostic Imaging Department [address] [place] [address] Patient: COREEN PINK/Age/Sex: 1970 - 53 - F Unit#: [id number] Location/Status: SPDIMAM/REG CLI Mnemonic[facility] Ordering Physician: BRONSON ADHIKARI [facility] Screening Digital - 07/12/24 - 1530 Report Status:Signed EXAM: [facility] Screening Digital EXAM DATE AND TIME: 07/12/2024 3:31 PM HISTORY: Screening. COMPARISON: 07/10/23, 07/07/22, 07/05/21 TECHNIQUE: Bilateral digital breast tomosynthesis was performed in the CC and MLO projections. Computer aided detection with DNS:Net 3D 3.1 was employed. TISSUE DENSITY: b. [...] Mammogram performed at [facility] at [address] [address] Dictating Physician: FLOR BROTHERS MD Electronically Signed by: FLOR BROTHERS MD Dic Date/Time: 07/13/24813 Sign date/Time: 07/13/24814 Procedure Note Flor Brothers MD - 08/02/2024 [facility] Diagnostic Imaging Department [address] [place] [address] Patient: COREEN PINK /Age/Sex: 1970 - 53 - F Unit#: [id number] Location/Status: SPDIMAM/REG CLI Mnemonic/Ordering Site: [facility] Ordering Physician: BRONSON ADHIKARI [facility] Screening Digital - 07/12/24 - 1530 Report Status:Signed EXAM: [facility] Screening Digital EXAM DATE AND TIME: 07/12/2024 3:31 PM HISTORY: Screening. COMPARISON: 07/10/23, 07/07/22, 07/05/21 TECHNIQUE: Bilateral digital breast tomosynthesis was performed in the CCand MLO projections. Computer aided detection with DNS:Net 3D 3.1was employed. TISSUE DENSITY: b. 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
--- OUTSIDE RECORDS SUMMARY | 2025-06-12 15:51 | XMS_ITS | Clinical Summary ---
Author Organization [facility] Address [address] [place] [address] Care Team Providers Care Refrigeration Plant Operator Name Role Phone Coy Adhikari Primary Care Provider [phone] Source Comments PLEASE NOTE, if this patient [...] no issues. 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 1 Each 2021 Active MISCELLANEOUS MEDICAL SUPPLY MISCIndications:Acute coccygeal pain Donut shaped cushion x99 years 5'9 206 lbs 1 Each 2023 Active budesonide-formoteroL (SYMBICORT) 80-4.5 mcg/actuation inhaler Inhale 2 Puffs into the lungs 2 (two) times daily 10.2 g 1 2023 Active diclofenac sodium (VOLTAREN) 1 [...] glargine 100 unit/mL (3 mL) penIndications:Severe obesity ([facility]),Type 2 diabetes mellitus with hyperglycemia, with long-term current use of insulin ([facility]) Inject 35 Units into the skin nightly at bedtime 10.5 mL 11 11/08 Active estradioL (CLIMARA) 0.1 mg/24 hr patch APPLY 1 PATCH TOPICALLY ONCE WEEKLY 12 Patch 5 2024 Active ARNUITY ELLIPTA 100 mcg/actuation dsdvIndications:Uncomp licated asthma, unspecified asthma severity, unspecified whether persistent ([facility]) TAKE 1 PUFF BY MOUTH EVERY DAY 30 Each 2 [address] aspirin [address] tablet Take 1 Tablet by mouth once daily 90 Tablet 2 2024 Active metFORMIN (GLUCOPHAGE) 1,000 mg tabletIndications:Diab etes mellitus without complication ([facility]) TOME 1 TABLETA POR VIA ORAL DOS VECES AL ADAN CON ALIMENTO. 180 Tablet 1 2024 Active timolol (TIMOPTIC) 0.5 % ophthalmic solution Apply 1 Drop to eye once daily. 5 mL 2 2024 Active levobunoloL (BETAGAN) 0.5 % ophthalmic solution PONGA JIMBO GOTA EN LOS DOS OJOS DOS VECES AL ADAN 5 mL 2024 Active zolpidem (AMBIEN) 10 mg tabletIndications:Inso mnia, unspecified type Take 1 Tablet by mouth nightly at bedtime as needed for sleep (Use ONLY NEEDED for sleeplessness) for up to 90 days. Max Daily Amount: 10 mg 30 Tablet 2 2024 Active buPROPion HCL (WELLBUTRIN XL) 300 mg 24 hr tabletIndications:Depr ession, unspecified depression type Take 1 Tablet by mouth every morning. 90 Tablet 2024 Active clonazePAM (KLONOPIN) 1 mg tabletIndications:PTSD (post-traumatic stress disorder) Take 1 Tablet by mouth once daily as needed for anxiety for anxiety. Max Daily Amount: 1 mg 30 Tablet 2 2024 Active gabapentin (NEURONTIN) 300 mg capsule Take 1 Capsule by mouth 3 (three) times daily. 180 Capsule 1 2024 Active alcohol swabsIndications:Contr olled type 2 diabetes mellitus without complication, unspecified whether continuous churn buttermaker insulin use ([facility]) APPLY TO AFFECTED AREA TWICE A DAY 100 Each 5 2024 Active famotidine (PEPCID) 40 mg tabletIndications:Branden roesophageal reflux disease with esophagitis, unspecified whether hemorrhage TOME 1 TABLETA POR VIA ORAL TODOS LOS GOOD 90 Tablet 1 2024 Active lisinopriL 40 mg tabletIndications:Esse ntial hypertension TOME 1 TABLETA POR VIA ORAL TODOS LOS GOOD 90 Tablet 1 2024 Active nystatin (MYCOSTATIN) 100,000 unit/gram ointment Apply topically 2 (two) times daily. 30 g 2 2024 Active pantoprazole (PROTONIX) 40 mg EC tabletIndications:Branden roesophageal reflux disease without esophagitis TOME 1 TABLETA POR VIA ORAL TODOS LOS GOOD 90 Tablet 1 2024 Active rosuvastatin (CRESTOR) 40 mg tabletIndications:Fami lial hypercholesterolemia TOME 1 TABLETA POR VIA ORAL TODOS LOS GOOD 90 Tablet 3 2024 Active nabumetone (RELAFEN) 500 mg tablet TOME 1 TABLETA POR VIA ORAL DOS VECES AL ADAN 45 Tablet 1 2024 Active tirzepatide (MOUNJARO) 7.5 mg/0.5 mL pnijIndications:Type 2 diabetes mellitus with hyperglycemia, with long-term current use of insulin ([facility]),Obstructive sleep apnea,Class 1 obesity due to excess calories without serious comorbidity with body mass index (BMI) of 31.0 to 31.9 in adult Inject 7.5 mg into the skin once a week. 2 mL 1 2024 Active tirzepatide (MOUNJARO) 12.5 mg/0.5 mL pnijIndications:Type 2 diabetes mellitus with hyperglycemia, with long-term current use of insulin ([facility]),Obstructive sleep apnea,Class 1 obesity due to excess calories without serious comorbidity with body mass index (BMI) of 31.0 to 31.9 in adult Inject 12.5 mg into the skin once a week. 2 mL 2 2024 Active blood-glucose,traffic officer ,cont (FREESTYLE RANULFO 3 READER) miscIndications:Type 2 diabetes mellitus without complications ([facility]) USE TO MONITOR BLOOD SUGAR. 1 Each 2024 Active lidocaine (LIDODERM) 5 % patchIndications:Chron ic bilateral low back pain without sciatica PLACE 1 PATCH TRANSDERMALLY TO THE AFFECTED AREA FOR A MAXIMUM OF 12 HOURS, THEN REMOVE FOR 12 HOURS 30 Patch 2 2024 Active meclizine (ANTIVERT) 25 mg tablet TAKE 1 TABLET BY MOUTH TWICE A DAY NEEDED FOR NAUSEA AND DIZZINESS 60 Tablet 2 2024 Active ferrous sulfate 325 mg (65 mg iron) tablet TOME 1 TABLETA POR VIA ORAL TODOS LOS GOOD CON EL [place]O 90 Tablet 2024 Active pen needle, diabetic (BD ULTRA-FINE SHORT PEN NEEDLE) 31 gauge x 5/16 ndleIndications:Diabet es mellitus without complication ([facility]) USE ONCE DAILY DIRECTED 100 Each 1 2024 Active cholecalciferol, vitamin D3, (VITAMIN D3) 1,250 mcg (50,000 unit) capsuleIndications:Fam ilial hypercholesterolemia TOME 1 CAPSULA POR VIA ORAL JIMBO VEZ POR SEMANA 12 Capsule 3 2024 Active JARDIANCE 10 mg tabIndications:Type 2 diabetes mellitus without complications ([facility]) TOME 1 TABLETA POR VIA ORAL TODOS LOS GOOD 90 Tablet 1 2024 Active LINZESS 72 mcg capIndications:Constip ation, unspecified TAKE 1 CAPSULE BY MOUTH ONCE DAILY NEEDED FOR CONSTIPATION. 30 Capsule 1 2024 Active levothyroxine 125 mcg tabletIndications:Acqu ired hypothyroidism TAKE 1 TABLET BY MOUTH EVERY MORNING BEFORE BREAKFAST, STOP LEVOTHYROXINE 150 MCG 90 Tablet 3 2024 Active cetirizine (ZYRTEC) 10 mg tabletIndications:dominic Piña TOME 1 TABLETA POR VIA ORAL TODOS LOS GOOD 90 Tablet 1 2024 Active blood-glucose sensor (FREESTYLE RANULFO 3 PLUS SENSOR) deviIndications:Type 2 diabetes mellitus with hyperglycemia, with long-term current use of insulin ([facility]) Place 1 sensor to back of upper arm every 15 days. Use to monitor blood sugar continuously (Freestyle Ranulfo 3 Plus). 2 Each 11 2024 Active busPIRone (BUSPAR) 5 mg tabletIndications:PTSD (post-traumatic stress disorder) TAKE 1 TABLET BY MOUTH 2 TIMES DAILY FOR 90 DAYS. 180 Tablet 09/01 Active blood sugar diagnostic (FREESTYLE LITE STRIPS) stripsIndications:Type 2 diabetes mellitus without complications ([facility]) USE NEEDED FOR HIGH BLOOD SUGAR CHECK GLUCOSE ONCE DAILY 100 Each 5 2024 Active albuterol HFA (VENTOLIN HFA) 90 mcg/actuation inhalerIndications:Unc omplicated asthma, unspecified asthma severity, unspecified whether persistent ([facility]) Inhale 2 Puffs into the lungs every 4 (four) hours as needed for shortness of breath or wheezing. 18 Each 3 2024 Active flash glucose scanning reader (FREESTYLE RANULFO 2 READER) miscIndications:Insuli n dependent type 2 diabetes mellitus, uncontrolled 1 Device by miscellaneous route continuous 1 Each 05/19 Discontinued( Exchange, Therapeutic) flash glucose sensor (FREESTYLE RANULFO 2 SENSOR) kitIndications:Type 2 diabetes mellitus with hyperosmolarity without coma, with long-term current use of insulin ([facility]),Routine adult health maintenance USE DIRECTED ,,CHANGE EVERY 14 DAYS 2 Kit 11 05/19 Discontinued( Exchange, Therapeutic) VENTOLIN HFA 90 mcg/actuation inhalerIndications:Unc omplicated asthma, unspecified asthma severity, unspecified whether persistent ([facility]) INHALE 2 PUFFS INTO THE LUNGS EVERY 4 (FOUR) HOURS NEEDED FOR SHORTNESS OF BREATH OR WHEEZING 18 Each 3 06/06 Discontinued( Reorder (E-Cancel Not Sent)) cetirizine (ZYRTEC) 10 mg tabletIndications:dominic Piña Take 1 Tablet by mouth once daily 90 Tablet 1 05/19 Discontinued levothyroxine 125 mcg tabletIndications:Acqu ired hypothyroidism TAKE 1 TABLET BY MOUTH IN THE MORNING BEFORE BREAKFAST, STOP LEVOTHYROXINE 150 MCG 90 Tablet 3 05/18 Discontinued JARDIANCE 10 mg tabIndications:Type 2 diabetes mellitus without complications ([facility]) TAKE 1 TABLET BY MOUTH EVERY DAY 90 Tablet 1 05/16 Discontinued LINZESS 72 mcg capIndications:Constip ation, unspecified TAKE 1 CAPSULE BY MOUTH ONCE DAILY NEEDED FOR CONSTIPATION. 30 Capsule 1 05/16 Discontinued busPIRone (BUSPAR) 5 mg tabletIndications:PTSD (post-traumatic stress disorder) Take 1 Tablet by mouth 2 (two) times daily for 90 days. 60 Tablet 2 06/03 Discontinued blood sugar diagnostic (FREESTYLE TEST) stripsIndications:Type 2 diabetes mellitus without complications ([facility]) as needed for high blood sugar Check glucose once daily. 100 Each 5 06/03 Discontinued blood-glucose sensor (FREESTYLE RANULFO 3 SENSOR) deviIndications:Type 2 diabetes mellitus without complications ([facility]) APPLY SENSOR TO BACK OF ARM. REPLACE AFTER 14 DAYS. 6 Each 3 05/19 Discontinued( Resource availability/ Cost) Active Problems Problem Noted Date Diagnosed Date History of Holter monitoring 04/18/2025 Overview (04/18/2025): 03/18/25-03/21/25 Holter Monitor 1. Underlying Rhythm = sinus rhythm 2. Max Sinus HR 133. Min Sinus HR=64 Average HR=89 3. Afib burden 0% 4. Atrial Flutter burden 0% 5. Pause > 2.5 sec= 0 6. PVC=7 with 4 QRS forms, ventricular tachycardia > = 3 beats 100 bpm=0 7. PSVC= 1, SV ectopic(s) =0 8. AV Blocks = none 9. Patient marker count=11 10. Diary= included with patient markers. Tachycardia count 1,935 [place] 16.88 % Class 1 obesity due to exces s calories without serious comorbidity with body mass index (BMI) of 31.0 to 31.9 in adult 12/14/2024 Moderate episode of recurren t major depressive disorder ([facility]) 12/14/2024 Anxiety 05/05/2024 Mild episode of recurrent ma stepan depressive disorder ([facility]) 05/05/2024 History of MRI of lumbar [...] Moderate glaucoma- stable. Cataract- monitor Diabetes mellitus ([facility]) 11/14/2016 Fibromyalgia 09/04/2016 Asthma ([facility]) 02/08/2016 HTN (hypertension) 12/25/2015 Overview (12/11/2022): Takes [...] Date Chest pain 05/05/2022 03/30/2023 Severe obesity (CMS & HHS-HCC) 12/25/2015 12/14/2024 Overview (10/07/2023): Not motivated to lose weight Encounters Date Type Department Care Team Description 05/19/2025 Interim Notes [address] [phone] Soto Broussard, HankD 04/14/2025 Interim Notes [address] [phone] Karlie Woody MA 04/12/2025 3:40 PM EDT Office Visit [address] [phone] Alek Quiroz, PharmD Sahara Steinberg 04/04/2025 5:20 PM EDT Office Visit [address] [phone] Coy Adhikari PA 03/20/2025 Results Follow-Up [address] [phone] Gris Jackson NP 03/17/2025 1:40 PM EDT Office Visit [facility] [address] [place] [phone] Gris Jackson NP Hernandez Mishel from Last 3 Months Immunizations Immunization Administration Dates Next Due Flu, Preservative Free 06/23/2023,2021,07/05/2021,2019,07/12/2019,06/24/2017,12/05/2016 INFLUENZA, SEASONAL, INJECTABLE 07/14/2018 Influenza (FLUBLOK),recombinant,injectable,pres ervative Free 06/28/2024 PNEUMOCOCCAL CONJUGATE PCV 13 03/05/2022 PNEUMOCOCCAL CONJUGATE PCV 2 0 (Prevnar 20) 11/19/2022 TDAP 12/05/2016,03/26/2016 ZOSTER VACCINE, RECOMBINANT (SHINGRIX) 09/04/2021,07/05/2021 Family History Medical History Relation Name Comments Depression Daughter 1 Suicide Attempts Daughter 1 Diabetes Daughter 2 Hypertension Daughter 2 Lupus Daughter 2 No Known Problems Daughter 3 Emphysema Father Depression Mother Diabetes Mother Glaucoma Mother Hypertension Mother Depression Sister Relation Name Status Comments Daughter 1 Daughter 2 Alive Daughter 3 Alive Father Mother Sister Social History Tobacco Use Types Packs/Day Years Used Date Smoking Tobacco: Former Cigarettes 2 30 1 980 - 10/05/2009 Smokeless Tobacco: Former Quit: 03/13/2011 Tobacco Cessation:Counseling Given: Not Answered Alcohol Use Standard Drinks/Week Comments Yes 0 [...] Sign Reading Time Taken Comments Blood Pressure 122/82 04/12/2025 3:41 PM EDT Pulse 95 04/12/2025 3:41 PM EDT Temperature 36.7 C (98 F) 04/12/2025 3:41 PM EDT Respiratory Rate 18 04/12/2025 3:41 PM EDT Oxygen Saturation 98% 04/12/2025 3:41 PM EDT Inhaled Oxygen Concentration - - Weight 96.1 kg (211 lb 14.4 oz) 04/12/2025 3:41 PM EDT Height 175.3 cm (5' 9 ) 04/12/2025 3:41 PM EDT Body Mass Index 31.29 04/12/2025 3:41 PM EDT Plan of Treatment Upcoming Encounters Date Type Department Care Team (Late st Contact Info) Description 06/15/2025 2:40 PM EDT / Visits [facility] [address] [place] [phone] Lynette Osborne [address] [place] [phone] Ladonna Sousa, KATHYHNP [address] [place] [address] 06/20/2025 3:20 PM EDT Office Visit [facility] [address] [place] [phone] AntilAlek, PharmD [address] [place] [address] Tyson Breen [address] [place] [address] Health Maintenance Due Date Last Done Comments Dental FMX/Pano 1970 Dental Perio Charting 1970 HPV Screening 1970 Pap + HPV 1970 Medicare Annual Wellness Visit [address] CT Colonography 01/01/2016 FIT/gFOBT 01/01/2016 Fecal DNA 01/01/2016 Flexible Sigmoidoscopy 01/01/2016 Pap Smear 01/06/2019 01/07/2016 (Rebecca ruiz by Outside Provider) Dental Prophy 09/05/2024 03/03/2024, 06/23/2022 Dental BW 03/05/2025 03/03/2024, 06/23/2022 Dental Examination 03/05/2025 03/03/2024, 06/23/2022 Diabetes Foot Exam 03/14/2025 03/14/2024, 0 11/19/2022, 10/07/2021, Additional history exists [id number] ( season) 2025 Imm-Influenza (#1) 2025 06/28/2024, 0 06/23/2023, 06/26/2022, Additional history exists Retinopathy Screening 06/09/2025 06/09/2024 , 06/09/2024, 08/17/2023, Additional history exists Depression Monitoring 06/17/2025 03/17/2025 , 03/14/2024, 10/07/2023, Additional history exists Hemoglobin A1c 06/17/2025 03/17/2025, 12/03, 03/14/2024, Additional history exists Breast Cancer Screening (Mammogram) 07/12/2025 07/12/2024, 07/10/2023, 07/07/2022, Additional history exists Anxiety Screening 10/06/2025 10/06/2024 Serum Creatinine 12/14/2025 12/14/2024, 07/2024, 06/09/2023, Additional history exists Lipid Screening 03/17/2026 03/17/2025, 03/05, 10/16/2023, Additional history exists TSH Monitoring 03/17/2026 03/17/2025, 08/0 03/2024, 03/14/2024, Additional history exists Urine Albumin Creatinine Rat io Screening 03/17/2026 03/17/2025, 03/14/2024, 09/11/2016 Tobacco Screening 04/12/2026 04/12/2025, , 04/16/2022, Additional history exists Imm-DTaP/Tdap/Td (3 - Td or Tdap) 12/05/2026 12/05/2016, 12/05/2016, 03/26/2016 Colonoscopy 06/25/2031 06/25/2021 Colorectal Cancer Screening 06/25/2031 HIV Screening Completed 07/08/2021 Hepatitis C Screening Completed 07/08/2021, 020 Syphilis Screening Discontinued 07/08/2021 Imm-Zoster, Recombinant Completed 09/04/2021, 07/05 Imm-Pneumococcal 50+ Completed 11/19/2022, 03/05/20 Alcohol and Drug Screen Completed 03/17/20, 03/14/2024, 10/07/2023, Additional history exists Cervical Ablation/Cold-Knife Conization Discontinued [...] A1C < 7.0 Result Component Diabetes mellitus ([facility]) 8.1( 3:30 PM EDT) No Nicki Riley, HankD Procedures Procedure Name Priority Date/Time Associated Diagnosis Comments REFERRAL SCANNED DOCUMENT 06/02/2025 3:00 AM EDT HEALTH HISTORY SCANNED DOCUMENT 05/18/2025 3:00 AM EDT RFLX- AUTOIMMUNE PANEL INTERPRETATION Routine 05/02/2025 11:39 AM EDT ANTONIA STG 1 RFLX: SM ANTIBODY Routine 05/02/2025 11:39 AM EDT CHROMATIN (NUCLEOSOMAL) AB Routine 05/02/2025 11:39 AM EDT DNA ANTIBODY HABEMATOLEL/DOUBLE STRANDED Routine 05/02/2025 11:39 AM EDT ANTONIA SCREEN, IFA, WITH REFLEX TO TITER AND PATTERN/LUPUS PANEL 1 Routine 05/02/2025 11:39 AM EDT Fibromyalgia Lumbar spine pain MEDICATIONS SCANNED DOCUMENT 04/24/2025 3:00 AM EDT REFERRAL SCANNED DOCUMENT 04/18/2025 3:00 AM EDT MEDICATIONS SCANNED DOCUMENT 04/13/2025 3:00 AM EDT GLUCOSE, BLOOD BY GLUCOSE MONITORING DEVICE (CLIA WAIVED)POCT Routine 04/12/2025 3:44 PM EDT Type 2 diabetes mellitus with hyperglycemia, with long-term current use of insulin ([facility]) OTHER ORDERS SCANNED DOCUMENT 04/10/2025 3:00 AM EDT OTHER ORDERS SCANNED DOCUMENT 04/04/2025 3:00 AM EDT US THYROID Routine 04/01/2025 3:00 AM EDT Disease of thyroid gland CARD SCANNED DOCUMENT 03/30/2025 3:00 AM EDT OTHER ORDERS SCANNED DOCUMENT 03/29/2025 3:00 AM EDT TSH W/RFLX FREE T4 Routine 03/17/2025 3: 30 PM EDT Routine adult health maintenance Type 2 diabetes mellitus with hyperglycemia, with long-term current use of insulin ([facility]) LIPID PANEL Routine 03/17/2025 3:30 PM EDT Routine adult health maintenance Type 2 diabetes mellitus with hyperglycemia, with long-term current use of insulin ([facility]) BLOOD COUNT COMPLETE AUTO&AUTO DIFRNTL WBC Routine 03/17/2025 3:30 PM EDT Routine adult health maintenance Type 2 diabetes mellitus with hyperglycemia, with long-term current use of insulin ([facility]) HEMOGLOBIN GLYCOSYLATED A1C Routine 03/17/2025 3:30 PM EDT Routine adult health maintenance Type 2 diabetes mellitus with hyperglycemia, with long-term current use of insulin ([facility]) MICROALBUMIN/CREATININ E RATIO, URINE, RANDOM Routine 03/17/2025 3:18 PM EDT Routine adult health maintenance REFERRAL SCANNED DOCUMENT 03/16/2025 3:00 AM EDT COMPREHENSIVE METABOLIC PANEL Routine 12/14/2024 11:22 AM EDT Type 2 diabetes mellitus with hyperglycemia, with long-term current use of insulin ([facility]) REFERRAL FOR MAMMOGRAM Routine 3:00 AM EDT Encounter for screening mammogram for malignant neoplasm of breast EYE EXAM 06/09/2024 3:00 AM EDT BITEWINGS - FOUR RADIOGRAPHIC IMAGES Routine 03/03/2024 [...] dependent type 2 diabetes mellitus, uncontrolled ([facility]) TREPONEMA PALLIDUM AB, PARTICLE AGGLUTINATION Routine 07/08/2021 10:28 AM EDT Insulin dependent type 2 diabetes mellitus, uncontrolled ([facility]) HEPATITIS C AB W/RFLX HCV RNA, QT, RT PCR Routine 07/08/2021 10:28 AM EDT Insulin dependent type 2 diabetes mellitus, uncontrolled ([facility]) Other problems related to lifestyle HISTORIC COLONOSCOPY 06/25/2021 12:00 AM EDT from Last 3 Months or Most Recently Relevant to Health Maintenance Results * REFERRAL SCANNED DOCUMENT (06/02/2025 3:00 AM EDT) Only the most recent of3 resultswithin the time period is included. 06/02/2025 3:00 AM EDT Coy [facility] REFERRAL Final Result * HEALTH HISTORY SCANNED DOCUMENT (05/18/2025 3:00 AM EDT) 05/18/2025 3:00 AM EDT [facility] Provider Default SCAN OTHER ORDERS Final Re sult * RFLX- AUTOIMMUNE PANEL INTERPRETATION Routine (05/02/2025 11:39 AM EDT) INTERPRETATION SEE NOTE 05/10/2025 9:32 PM EDT 5minutes 05/02/2025 11:3 9 AM EDT 05/02/2025 11:39 AM EDT [employer] - 05/10/2025 9:33 PM EDT . This pattern may represent a connective tissue disease other than systemic lupus erythematosus or be found in healthy individuals. Consider evaluation for other analytes including SS-A, SS-B (for Sjogren's syndrome), INDUSTRIAL EDITOR (for mixed connective tissue disease), and centromere and Scl-70 (for scleroderma and scleroderma variants), and Falguni-1 for myositis. These assays can be ordered by contacting your local laboratory. . [facility] - NO BLOOD DRAW Final Resu lt [facility] [address] [place] [phone], 5minutes [address] [place] [phone] * (ABNORMAL) ANTONIA SCREEN, IFA, WITH REFLEX TO TITER AND PATTERN/LUPUS PANEL 1 Routine (05/02/2025 11:39 AM EDT) ANTONIA SCREEN POSITIVE( A) NEGATIVE 05/09/2025 10:30 PM EDT 5minutes ANTINUCLEAR ANTIBODIES 1:80(H) titer 05/09/2025 10:30 PM EDT 5minutes ANTONIA PATTERN Nuclear, Nucleolar (A) 05/09/2025 10:30 PM EDT 5minutes Blood Blood / Unknown 05/02/2025 1 1:39 AM EDT 05/03/2025 3:40 AM EDT [employer] - 05/09/2025 10:45 PM EDT ANTONIA IFA is a first line screen for detecting the presence of up to approximately 150 autoantibodies in various autoimmune diseases. A positive ANTONIA IFA result is suggestive of autoimmune disease and reflexes to titer and pattern. Further laboratory testing may be considered if clinically indicated. . For additional information, please refer to http://education.Profusa/faq/WXP081 (This link is being provided for informational/ educational purposes only.) . A low level ANTONIA titer may be present in pre-clinical autoimmune diseases and normal individuals. Reference Range <1:40 Negative 1:40-1:80 Low Antibody Level >1:80 Elevated Antibody Level . Nucleolar pattern is associated with systemic sclerosis (scleroderma), systemic sclerosis/polymyositis overlap and Sjogren's syndrome. . AC-8,9,10: Nucleolar . International Consensus on ANTONIA Patterns (https://doi.org/10.1515/oxwu-1277-9171) [facility] - BLOOD DRAW Final Result Performing Organization Address City/[facility]/ZIP Co de Phone Number [facility] [address] [address], [facility] [address] [address] * CHROMATIN (NUCLEOSOMAL) AB Routine (05/02/2025 11:39 AM EDT) CHROMATIN (NUCLEOSOMAL) ANTIBODY <1.0 NEG <1.0 NEG AI 05/10/2025 9:32 PM EDT [facility] 05/02/2025 11:3 9 AM EDT 05/02/2025 11:39 AM EDT [facility] - BLOOD DRAW Final Result Performing Organization Address [facility]/ZIP Co de Phone Number [facility] [address] [address], [facility] [address] [phone] * ANTONIA STG 1 RFLX: SM ANTIBODY Routine (05/02/2025 11:39 AM EDT) SM ANTIBODY <1.0 NEG <1.0 NEG AI 05/10/2025 9:32 PM EDT [facility] 05/02/2025 11:3 9 AM EDT 05/02/2025 11:39 AM EDT us [facility] - BLOOD DRAW Final Result Performing Organization Address [facility]/ZIP Co de Phone Number [facility] [address] [address], [facility] [address] [phone] * DNA ANTIBODY HABEMATOLEL/DOUBLE STRANDED Routine (05/02/2025 11:39 AM EDT) DNA (DS) ANTIBODY 1 IU/mL 05/10/2025 9:32 PM EDT [facility] 05/02/2025 11:3 9 AM EDT 05/02/2025 11:39 AM EDT Narrative [place] [facility] - 05/10/2025 9:33 PM EDT IU/mL Interpretation < or = 4 Negative 5-9 Indeterminate > or = 10 Positive . us Coy [facility] LAB - BLOOD DRAW Final Result Performing Organization Address [facility] Co de Phone Number [place] [address] [address], [facility] [address] [address] * MEDICATIONS SCANNED DOCUMENT (04/24/2025 3:00 AM EDT) Only the most recent of2 resultswithin the time period is included. 04/24/2025 3:00 AM EDT us Coy HENSON SCAN MEDS OTHER ORDERS Final R esult * (ABNORMAL) GLUCOSE, BLOOD BY GLUCOSE MONITORING DEVICE (CLIA WAIVED)POCT Routine (04/12/2025 3:44 PM EDT) GLUCOSE 171(A) 70 - 100 mg/dL [facility]- BACK OFFICE POCT Capillary Blood Blood / Unknown 3:44 PM EDT us Alek Richie PharmD LAB - BLOOD DRAW Final Resu lt [facility]- BACK OFFICE POCT * OTHER ORDERS SCANNED DOCUMENT (04/10/2025 3:00 AM EDT) Only the most recent of3 resultswithin the time period is included. 04/10/2025 3:00 AM EDT us Coy Adhikari PA SCAN OTHER ORDERS Final Result * US THYROID (04/01/2025 3:00 AM EDT) 04/01/2025 3:00 AM EDT Franchesca Roberts PA-C IMG ULTRASOUND Final Resul t [facility] Corporate Office [address], [address] [place] [address], [place] [phone] * CARD SCANNED DOCUMENT (03/30/2025 3:00 AM EDT) 03/30/2025 3:00 AM EDT us Gris Jackson FRONT OFFICE DIRECTOR SCAN ECGS Final Result * TSH W/RFLX FREE T4 Routine (03/17/2025 3:30 PM EDT) TSH W/REFLEX TO FT4 0.74 0.40 - 4.50 mIU/L [place] Comment: Reference Range > or = 20 Years 0.40-4.50 Ranges First trimester 0.26-2.66 Second trimester 0.55-2.73 Third trimester 0.43-2.91 Blood Blood / Unknown 03/17/2025 3 :30 PM EDT 03/17/2025 3:31 PM EDT [facility] - 03/18/2025 2:11 PM EDT FASTING:NO Chidi DREWP LAB - BLOOD DRAW Edited R esult - Final [facility] [address] [address], [place] [facility] [address] [place] [address] * (ABNORMAL) BLOOD COUNT COMPLETE AUTO&AUTO DIFRNTL WBC Routine (03/17/2025 3:30 PM EDT) WHITE BLOOD CELL COUNT 9.4 3.8 - 10.8 Thousand/ uL 5minutes RED BLOOD CELL COUNT 4.63 3.80 - 5.10 Million/u L 5minutes HEMOGLOBIN 13.4 11.7 - 15.5 g/dL 5minutes HEMATOCRIT 41.7 35.0 - 45.0 % 5minutes MCV 90.1 80.0 - 100.0 fL 5minutes MCH 28.9 27.0 - 33.0 pg 5minutes MCHC 32.1 32.0 - 36.0 g/dL 5minutes Comment: For adults, a slight decrease in the calculated MCHC value (in the range of 30 to 32 g/dL) is most likely not clinically significant; however, it should be interpreted with caution in correlation with other red cell parameters and the patient's clinical condition. RDW 13.3 11.0 - 15.0 % 5minutes PLATELET COUNT 357 140 - 400 Thousand/ uL 5minutes MPV 10.5 7.5 - 12.5 fL 5minutes ABSOLUTE NEUTROPHILS 2,820 1,500 - 7,800 cells/uL 5minutes ABSOLUTE LYMPHOCYTES 5,678(H) 850 - 3,900 cells/uL 5minutes ABSOLUTE MONOCYTES 583 200 - 950 cells/uL 5minutes ABSOLUTE EOSINOPHILS 263 15 - 500 cells/uL 5minutes ABSOLUTE BASOPHILS 56 0 - 200 cells/uL 5minutes NEUTROPHILS PCT 30 % QUES [facility] LYMPHOCYTES 60.4 % 5minutes MONOCYTES 6.2 % 5minutes EOSINOPHILS 2.8 % 5minutes BASOPHILS 0.6 % [facility] Blood Blood / Unknown 03/17/2025 3 :30 PM EDT 03/17/2025 3:31 PM EDT [facility] - 03/18/2025 2:11 PM EDT FASTING:NO [facility] B[facility] Edited R [facility] Performing Organization Address [facility] Co de Phone Number [place] [facility] [address] [address], [facility] [address] [address] * (ABNORMAL) HEMOGLOBIN GLYCOSYLATED A1C Routine (03/17/2025 3:30 PM EDT) HEMOGLOBIN A1C 8.1(H) <5.7 % [facility] Comment: For someone without known diabetes, a [...] A1c for diagnosis of diabetes for children. Blood Blood / Unknown 03/17/2025 3 :30 PM EDT 03/17/2025 3:31 PM EDT [facility] - 03/18/2025 2:11 PM EDT FASTING:NO [facility] F[facility] - BLOOD DRAW Edited [email or web address] - Final Performing Organization Address [facility]/ZIP Co de Phone Number [place] [facility] [address] [address], [facility] [address] [address] * (ABNORMAL) LIPID PANEL Routine (03/17/2025 3:30 PM EDT) CHOLESTEROL, TOTAL 129 <200 mg/dL [facility] HDL CHOLESTEROL 43(L) > OR = 50 mg/dL [facility] TRIGLYCERIDES 199(H) <150 mg/dL [facility] LDL-CHOLESTEROL 59 99 mg/dL (calc) [facility] Comment: Reference range: <100 Desirable range <100 mg/dL for primary prevention; <70 mg/dL for patients with CHD or diabetic patients with > or = 2 CHD risk factors. LDL-C is now calculated using the Iliana calculation, which is a validated novel method providing better accuracy than the Friedewald equation in the estimation of LDL-C. Aravind SS et al. ROSINA. 2013;310(19): 2311-1436 (http://education.Profusa/faq/EMK665) CHOL/HDLC RATIO 3.0 <5.0 (calc) [facility] NON-HDL CHOLESTEROL 86 <130 mg/dL (calc) [facility] Comment: For patients with diabetes plus 1 major ASCVD risk factor, treating to a non-HDL-C goal of <100 mg/dL (LDL-C of <70 mg/dL) is considered a therapeutic option. Blood Blood / Unknown 03/17/2025 3 :30 PM EDT 03/17/2025 3:31 PM EDT [facility] - 03/18/2025 2:11 PM EDT FASTING:NO Chidi Aleman MANAGER LIGHTING LAB - BLOOD DRAW Final Re sult [place] [address] [address], [facility] [address] [address] * MICROALBUMIN/CREATININE RATIO, URINE, RANDOM Urine Routine (03/17/2025 3:18 PM EDT) CREATININE, RANDOM URINE 43 20 - 275 mg/dL [facility] MICROALBUMIN <0.2 mg/dL [facility] [email or web address] [facility] Comment: Reference Range Not established MICROALBUMIN/CREA TININE RATIO, RANDOM URINE NOTE <30 [facility] Comment: NOTE: The urine albumin value is less than 0.2 mg/dL therefore we are unable to calculate excretion and/or creatinine ratio. The ADA defines abnormalities in albumin excretion as follows: Albuminuria Category Result (mg/g creatinine) Normal to Mildly increased <30 Moderately increased 30-299 Severely increased > OR = 300 The ADA recommends that at least two of three specimens collected within a 3-6 month period be abnormal before considering a patient to be within a diagnostic category. Urine Urine specimen / Unknown 03/17/2025 3:18 PM EDT 03/17/2025 3:18 PM EDT Gris Jackson FRONT OFFICE DIRECTOR LAB URINE AMBULATORY Final Resu lt [facility] [address] [address], [place] [facility] [address] [place] [address] * COMPREHENSIVE METABOLIC PANEL (12/14/2024 11:22 AM EDT) GLUCOSE 131 65 - 139 mg/dL [facility] Comment: Non-fasting reference interval UREA NITROGEN (BUN) 10 7 - 25 mg/dL [facility] CREATININE (blood) 0.69 0.50 - 1.03 mg/dL [facility] EGFR 104 > OR = 60 mL/min/1. 73m2 [facility] BUN/CREATININE RATIO SEE NOTE: [facility] Comment: Not Reported: BUN and Creatinine are within reference range. SODIUM 139 135 - 146 mmol/L [facility] POTASSIUM 4.5 3.5 - 5.3 mmol/L [facility] CHLORIDE 104 98 - 110 mmol/L [facility] CARBON DIOXIDE 26 20 - 32 mmol/L [place] [facility] CALCIUM 9.9 8.6 - 10.4 mg/dL [facility] PROTEIN, TOTAL 7.4 6.1 - 8.1 g/dL [facility] ALBUMIN 4.8 3.6 - 5.1 g/dL 5minutes GLOBULIN 2.6 1.9 - 3.7 g/dL (calc) [facility] ALBUMIN/GLOBULI N RATIO 1.8 1.0 - 2.5 (calc) [facility] BILIRUBIN, TOTAL 0.2 0.2 - 1.2 mg/dL [facility] ALKALINE PHOSPHATASE 50 37 - 153 U/L [place] [facility] AST 14 10 - 35 U/L [facility] ALT 26 6 - 29 U/L [facility] Blood Blood / Unknown 12/14/2024 1 1:22 AM EDT 12/14/2024 11:23 AM EDT Narrative [facility] [facility] - 12/15/2024 8:28 AM EDT FASTING:NO Chidi Aleman MANAGER LIGHTING LAB - BLOOD DRAW Final Re sult [facility] [address] [address], [place] [address] [address] * REFERRAL FOR MAMMOGRAM SCREENING (07/12/2024 3:00 AM EDT) 07/12/2024 3:00 AM EDT us Coy HENSON IMG RFL MAMMO Final Result * EYE EXAM (06/09/2024 3:00 AM EDT) 06/09/2024 3:00 AM EDT us Coy HENSON OTHER Edited Result - Final * HEPATITIS C AB W/RFLX HCV RNA, QT, RT PCR (07/08/2021 10:28 AM EDT) HEPATITIS C ANTIBODY NON-REACT THERESA NON-REACT THERESA [facility] SIGNAL TO CUT-OFF 0.01 <1.00 [place] [facility] Comment: HCV antibody was non-reactive. There is no laboratory evidence of HCV infection. In most cases, no further action is required. However, if recent HCV exposure is suspected, a test for HCV RNA (test code 09232) is suggested. For additional information please refer to http://education.Logly/faq/IKJ11z3 (This link is being provided for informational/ educational purposes only.) Blood Blood / Unknown 07/08/2021 1 0:28 AM EDT 07/08/2021 10:29 AM EDT Chidi Ash [facility] LAB - BLOOD DRAW Edited R esult - Final Performing Organization Address City/[facility]/ZIP Co de Phone Number [place] [facility] [address] [address], [place] [address],[place] [address] * HIV 1/2 AG & AB W/RFLX (4TH GEN) (07/08/2021 10:28 AM EDT) [facility] HIV AG/AB, 4TH GEN NON-REAC TIVE NON-REAC TIVE [place] [facility] Comment: HIV-1 antigen and HIV-1/HIV-2 antibodies were not detected. There is no laboratory evidence of HIV infection. PLEASE NOTE: This information has been disclosed to you from records whose confidentiality may be protected by state law. If your state requires such protection, then the state law prohibits you from making any further disclosure of the information without the specific written consent of the person to whom it pertains, or as otherwise permitted by law. A general authorization for the release of medical or other information is NOT sufficient for this purpose. For additional information please refer to http://education.Logly/faq/XKO186 (This link is being provided for informational/ educational purposes only.) The performance of this assay has not been clinically validated in patients less than 2 years old. Blood Blood / Unknown 07/08/2021 1 0:28 AM EDT 07/08/2021 10:29 AM EDT Chidi DREWP LAB - BLOOD DRAW Final Re sult [place] [facility] [address] [address], [place] [address],[facility] [address] * TREPONEMA PALLIDUM AB, PARTICLE AGGLUTINATION (07/08/2021 10:28 AM EDT) TREPONEMA PALLIDUM AB, PARTICLE AGGLUTINATION NON-REACT THERESA NON-REACT THERESA [facility] COMMENT [place] [facility] Blood Blood / Unknown 07/08/2021 1 0:28 AM EDT 07/08/2021 10:29 AM EDT Narrative [place] [facility] - 07/09/2021 5:21 PM EDT The Treponema pallidum particle agglutination assay is a treponemal assay that is intended to be used with other tests (e.g. RPR) as part of a diagnostic algorithm in the diagnosis of syphilis. 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
== END 2025-06-12 14:36 | disposition home or self-care (01) ==
LOC: HO.HNS 13:38
PROVIDERS: PCP Physician Assistant; Visit Provider Physician Assistant
DX: M25.551 Pain in right hip (principal)
CPT/HCPCS: 99213

== ENCOUNTER → 2025-06-12 13:37 | Outpatient (BNVA) | payer MEDICARE, MEDICAID, SELFPAY | PROVIDERS: PCP Physician Assistant; Visit Provider Physician Assistant | DX: M25.551 Pain in right hip (principal) | CPT/HCPCS: 99212 ==

== ENCOUNTER 2025-09-04 15:14 | Outpatient (AMB) | payer MEDICARE, MEDICAID, SELFPAY ==
[2025-09-04 15:24] VITALS: BP 136/71; PULSE 81; RESP 16; O2SAT 98; BMI 31.9
--- NOTE | 2025-09-04 15:24 | MHC.OFFVIS ---
Vital Signs 09/04/25 15:24 Height 5 ft 7 in Weight 204 lb BMI 31.9 BP 136/71 Blood Pressure Location Lt brachial Position Sitting Respiration 16 Pulse 81 Pulse Source Pulse Oximeter Pulse Oximetry (%) 98 Oxygen Delivery Method Room Air Intake Visit Reasons: Back Pain Allergies oxycodone Allergy (Severe, Verified 09/04/25 15:24) Anaphylaxis Penicillins Adverse Reaction (Severe, Verified 09/04/25 15:24) rash HPI Comments Details: The patient is a 54 year old individual presenting for follow-up of chronic low back pain and sacroiliac (SI) joint pain. The patient complains of sciatic pain that radiates to the right buttock and down the back of the leg, as well as numbness and tingling in the right toes, with pain worsening with both forward and backward bending. The patient uses a cane for long-distance walking and was evaluated by Neurosurgery in June at which time the patient was not considered a surgical candidate. Regarding prior interventions, the patient has had four injections, with only one providing significant relief. A right L5-S1 transforaminal epidural steroid injection in March 2025 resulted in 80% pain relief that lasted until approximately June. The patient reports no relief from prior SI joint injections and minimal relief from a right hip steroid injection. An MRI last year revealed multilevel lumbar spondylosis, most prominent at L4-L5, with a bulging disc, ligament hypertrophy, and mild bilateral neuroforaminal stenosis. Imaging has also shown moderate arthritis in both SI joints and both hips. Past medical history is significant for fibromyalgia, for which the patient takes gabapentin, recently increased to 300 mg three times daily, and clonazepam for anxiety and sleep. She regularly sees her Psychiatrist for couseling and medication management. The patient also has a history of diabetes, with an improved A1c of 6, and is managed on Jardiance, Mounjaro, Lantus, and metformin and dietary adjustments. The patient reports occasionally feeling dizzy and sweating, which is attributed to low blood sugar. Denies any recent cough, cold, infection, fever or any significant changes in medical history since last office visit. PRIOR: The patient is a 54-year-old female presenting with chronic pain management concerns. The pain is primarily located in the right lower back radiates into right buttock and down into posterior lower back and has been persistent despite previous interventions. The patient has a history of sacroiliac joint pain, for which she underwent a diagnostic injection last August, resulting in no pain relief. Subsequent interventions included an epidural steroid injection and a hip injection, with only the right L5-S1 injection providing good but temporary relief. The patient has been under the care of Neurosurgery, having seen FRANCISCO Garcia, in March 2024, who assessed her MRI and referred her for an SI joint injection. Despite these efforts, the sacroiliac joint injection did not alleviate her pain, leading to further exploration of sciatica as the underlying issue. Denies any recent cough, cold, infection, fever or any significant changes in medical history since last office visit. PRIOR: Patient presents today to assess response to RIGHT L5, S1 TFESI on 03/28/[address] Paez. Patient reports 80% ongoing pain relief since procedure with improvement in her daily activities and functioning, mobility or sleep. She reports that the injection has reduced her pain to 2/10, which is a significant improvement from her baseline pain levels. The patient has a history of sacroiliac joint dysfunction, with diagnostic SI joint injections performed last August that did not provide pain relief. She continues to experience back pain on the left side, similar to previous episodes. The patient also has a history of diabetes mellitus, with recent A1c levels reported slightly above 8. She is advised to follow up with her PCP with goal to achieve an A1c of 7.5 or less before proceeding with further injections to avoid exacerbating her condition. Denies any recent cough, cold, infection, fever or any significant changes in medical history since last office visit. Past Procedures: 03/28/25: Right L5-S1 TFESI-80% ongoing pain relief 01/10/25: Right intra-articular hip steroid injection with fluoroscopy-40% pain relief 10/25/24: Right L4-L5 TFESI-0% pain relief 08/09/24: Bilateral Diagnostic SIJ injections- 0% pain relief PRIOR: Patient is a 53 years old female presents today for low back pain with bilateral radiculopathy. She was referred to our office by [facility] for diagnostic right sacroiliac joint injection. Denies any recent trauma, injury or falls. Back pain is axial and also extends to sacral and buttocks areas and into her groin and posterior thighs, worse on the right. She also experiences significant right groin pain with internal and external hip rotations and weight bearing. She ambulates with antalgic gait with limping, favoring left side. Pain is worse with prolonged sitting, driving, changing positions from sitting to standing, walking, climbing stairs and most movements. She also reports moderate pain with lumbar extension and axial rotations. Patient utilizes cane with ambulation. She completed multiple courses of physical therapy, has been taking OTC medications, gabapentin, lidocaine patches with continued symptoms. Reports PT exacerbated her pain symptoms. Pain has been present for over 10 years and has been resistant to conservative treatments. Pain affects her daily activities and functioning, mobility, sleep, mood and quality of life. She completed lumbar spine MRI report at [facility] and had Neurosurgical evaluation by [facility] with no surgical recommendations at this time. Patient is interested to undergo bilateral diagnostic sacroiliac joint injections as next steps. Denies any fever, chills, abdominal pain, chest pain, headache, dizziness, numbness or tingling, weakness, foot drop, bladder or bowel dysfunction or saddle anesthesia. [facility] Medical History GERD (gastroesophageal reflux disease) Fibromyalgia Hypertension Asthma T2DM (type 2 diabetes mellitus) Uterine fibroid Hypothyroidism JUAREZ (obstructive sleep apnea) Lipoma of back Diverticulitis PTSD (post-traumatic stress disorder) Review of Systems Const All systems reviewed & are unremarkable except as noted in HPI and below Physical Exam Vital Signs: Last Vital Signs Pulse 81 09/04/25 15:24 Resp 16 09/04/25 15:24 BP 136/71 09/04/25 15:24 Pulse Ox 98 09/04/25 15:24 Oxygen Delivery Method Room Air 09/04/25 15:24 BMI result Body Mass Index 31.9 General: Appears afebrile. Alert and oriented. Mood and affect appropriate. Follows and participates in conversation appropriately. Respiratory effort is unlabored. No cough. Able to transition from sit to stand unassisted. Ambulates with normal heel strike and toe off on the left, reports right leg and back pain increase with toe/heel standing. General: Yes no CVA tenderness Back/Spine/Pelvis Other: Limited lumbar ROM due to pain. Antalgic gait with mild limping. Lumbar extension and flexion forward reproduces moderate pain. Demonstrates 5/5 strength of quadriceps bilaterally as well as flexion/dorsiflexion of bilateral feet against resistance. 2+ pedal pulses bilaterally. Seated straight leg rise with dorsiflexion positive on the right. +2 patellar and +1 achilles reflexes bilaterally. Facet loading test positive bilaterally, right>left. Chalino?s, Pelvic compression, Gaenslen and Stinchfield tests are positive bilaterally. Mild groin pain with I/E hip rotations, right>left. Valsalva maneuver is negative. Back: no CVA tenderness Cervical Spine: cervical ROM normal, cervical muscular tenderness and No Cervical spine tenderness Thoracic/Lumbar Spine: thoracic and lumbar spine normal to inspection, No Thoracic/lumbar spine scar(s), Lasegue's sign positive on the right and diffuse, pain with thoraco-lumbar ROM, paraspinal muscle tenderness bilaterally, thoraco-lumbar ROM limited, No thoracic spinal tenderness and lumbar spinal tenderness (L4-S1) Pelvis: buttock tenderness on the right Sacroiliac joints: bilaterally tender to palpation Extrem General: Yes capillary refill normal, Yes no clubbing, cyanosis or edema and Yes no calf tenderness Results Reviewed Results Reviewed: XR BILATERAL HIPS WITH AP PELVIS 04/01/24 FINDINGS: Degenerative changes in the imaged lower lumbar spine. Moderate degenerative changes in the bilateral sacroiliac joints. Qcud-up-agbfzrdw degenerative changes in bilateral hips with joint space narrowing and lateral acetabular hypertrophic change. Sclerotic focus overlying the right humeral head may represent a bony lesion such as a bone island versus less likely soft tissue calcification. IMPRESSION: 1. Jgja-ko-pcucxbxy degenerative changes in bilateral hips. 2. Moderate degenerative changes in the bilateral sacroiliac joints. 3. Degenerative changes in the imaged lower lumbar spine. Assessment & Plan Assessment & Plan (1) Lumbosacral spondylosis: Code(s): M47.817 - Spondylosis without myelopathy or radiculopathy, lumbosacral region Category: Medical (2) Lumbar degenerative disc disease: Code(s): M51.36 - Other intervertebral disc degeneration, lumbar region Category: Medical (3) Lumbar radiculopathy: Code(s): M54.16 - Radiculopathy, lumbar region Category: Medical (4) Right hip pain: Code(s): M25.551 - Pain in right hip Category: Medical (5) SI (sacroiliac) joint dysfunction: Code(s): M53.3 - Sacrococcygeal disorders, not elsewhere classified Category: Medical (6) Osteoarthritis of hips, bilateral: Code(s): M16.0 - Bilateral primary osteoarthritis of hip Category: Medical (7) Sacroiliitis: Code(s): M46.1 - Sacroiliitis, not elsewhere classified Category: Medical Plan The plan is to repeat the right L5-S1 transforaminal epidural steroid injection with local and fluoroscopy, as this procedure provided the patient with 80% pain relief for approximately three months previously and consistent with her symptoms, as well as axial/discogenic low back pain and SI and hip pain components. Expectations, risks and benefits were reviewed. Patient is aware she will be contacted to schedule this procedure. For fibromyalgia management, the patient will continue taking gabapentin 300 mg three times a day. The patient was also encouraged to pursue aquatic therapy and to check with the insurance provider about potential reimbursement for fitness programs such as at the [facility]. A recommendation was made for the patient to discuss cognitive behavioral therapy (CBT) with the patient's psychiatrist to help cope with chronic pain and fibromyalgia. Regarding the patient's diabetes, counseling was provided on managing hypoglycemic symptoms by always having a snack available which patient states she does and regularly monitor blood sugars at home. All questions and concerns have been answered and patient agreed with the treatment plan. Follow up after injection and sooner as needed. Patient was informed and verbally consented to the use of an ambient scribe for clinic note documentation during this visit. Coding Level of Care Code Est Pt Level 4 (41060) Complex visit Add On G2211 Diagnoses Lumbosacral spondylosis M47.817 Lumbar degenerative disc disease M51.36 Lumbar radiculopathy M54.16 Right hip pain M25.551 SI (sacroiliac) joint dysfunction M53.3 Osteoarthritis of hips, bilateral M16.0 Sacroiliitis M46.1
--- OUTSIDE RECORDS SUMMARY | 2025-09-04 18:20 | XMS_ITS | Clinical Summary ---
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 Dealer Name Role Phone Coy Adhikari Primary Care Provider [phone] Encounters Date Type Department Care Team Description 07/20/2025 2:00 PM EDT - 07/20/2025 11:59 PM EDT [facility] [address] [phone] Encounter for screening mammogram for breast cancer Discharge Disposition: Home or Self Care from Last 3 Months Surgical History Surgery Date Site/Laterality Comments HYSTERECTOMY 10/05/2018 - 10/04/2019 Family History Medical History Relation Name Comments Breast cancer Maternal Grandmother Breast cancer Mother's Sister Relation Name Status Comments Maternal Grandmother Mother's Sister Social History Tobacco Use Types Packs/Day Years Used Date Smoking Tobacco: Former Smokeless Tobacco: Never Comments No Sex and Gender Information Value Date Recorded Sex Assigned at Female 03/31/2025 4:13 PM EDT Legal Sex Female 3:44 AM EDT Gender Identity Female 03/31/2025 4:13 PM EDT Sexual Orientation Straight 03/31/2025 4: 13 PM EDT Obstetrics History Para Term AB IAB SAB Ectopic Multiple Livin g Live Births 3 Last Filed Vital Signs Vital Sign Reading Time Taken Comments Blood Pressure 122/68 03/05/2023 3:48 PM EDT Sit ting L Arm Pulse 60 03/05/2023 3:48 PM EDT Temperature - - Respiratory Rate - - Oxygen Saturation - - Inhaled Oxygen Concentration - - Weight 93 kg (205 lb) 07/20/2025 2:12 PM EDT Height 167.6 cm (5' 6 ) 07/20/2025 2:12 PM EDT Body Mass Index 33.09 07/20/2025 2:12 PM EDT Plan of Treatment Health Maintenance Due Date Last Done Comments Colorectal Cancer Screening: Colonoscopy 1970 Diabetes: Annual Foot Exam 1980 Diabetes: Annual Retina Eye Exam 1980 Hepatitis B Vaccines (1 of 3 - 19+ 3-dose series) 1989 Cervical Cancer Screening: Pap Smear 01/01/1992 HIV Screening 05/23/2020 Lung Cancer Screening (Low Dose CT) 05/23/2020 Medicare Annual Wellness Visit 05/23/2020 Social Influencers of Health Screening 05/23/2020 RSV Immunization Adult Patients (1 - Risk 50-74 years 1-dose series) 2020 Depression Screening 10/05/2024 COVID-19 Vaccine ( season) 2025 Diabetes: Annual GFR (Glomerular Filtration Rate) 12/14/2025 12/14/2024 Hypertension/CHF/CAD Annual BMP Blood Test 12/14/2025 12/14/2024 Diabetes: Blood Sugar Control Test (HGBA1C) 12/18/2025 06/20/2025, 03/17/2025, 12/14/2024 Diabetes: Annual Urine Albumin-Creatinine Ratio (uACR) 03/17/2026 03/17/2025, 03/14/2024 DTaP,Tdap,and Td Vaccines (3 - Td or Tdap) 12/05/2026 12/05/2016, 03/26/2016 Breast Cancer Screening 07/20/2027 07/20/20 25, 07/13/2024, 07/10/2023, Additional history exists Cholesterol Screening (Lipid Panel) 03/17/2030 03/17/2025, 03/17/2025, 03/14/2024, Additional history exists Hepatitis C Screening Completed 07/08/2021 Zoster Vaccines Completed 09/04/2021, 07/05/2021 Pneumococcal Vaccine: 50+ Years Completed 11/19/2022, 03/05/2022 Influenza Vaccine Completed 06/20/2025, , 06/23/2023, Additional history exists HIB Vaccines Aged Out [...] Procedure Name Priority Date/Time Associated Diagnosis Comments MG MAMMO DIGITAL SCREENING W QUANG BILAT Routine 07/20/2025 2:21 PM EDT Encounter for screening mammogram for breast cancer from Last 3 Months Results * MG Mammo Digital Screening w Quang bilat (07/20/2025 2:21 PM EDT) Anatomical Region Laterality Modality Breast Bilateral Mammography 07/20/2025 3:05 PM EDT Impressions 07/20/2025 3:14 PM EDT Benign. BI-RADS CATEGORY: 1 - NEGATIVE RECOMMENDATION: Screening bilateral mammogram is recommended in 1 year. Mammo Location: [facility], [address] [place] [address], [id number], . -------- FINAL REPORT -------- Dictated By: Diego Retana Dictated Date: 07/20/2025 15:05 ET Assigned Physician: Diego Retana Reviewed and Electronically Signed By: Diego Retana Signed Date: 07/20/2025 15:14 ET Workstation ID: [id number] Transcribed By: Self Edit Transcribed Date: 07/20/2025 15:05 ET Narrative 07/20/2025 3:14 PM EDT CLINICAL: 54 years old, Female, routine annual exam. COMPARISON: 07/12/2024. 07/10/2023. TECHNIQUE: Bilateral MLO and CC views were obtained digitally with 3-D mammogram (digital breast tomosynthesis). Computer-aided detection was utilized in evaluation of this exam (CAD). FINDINGS: No suspicious mass or architectural distortion. No suspicious calcification. There has been no significant change from prior exam(s). BREAST DENSITY: B - There are scattered areas of fibroglandular density. Procedure Note Diego Retana MD - 07/20/2025 CLINICAL: 54 years old, Female, routine annual exam. COMPARISON: 07/12/2024. 07/10/2023. TECHNIQUE: Bilateral MLO and CC views were obtained digitally with 3-Dmammogram (digital breast tomosynthesis). Computer-aided detection wasutilized in evaluation of this exam (CAD). FINDINGS: No suspicious mass or architectural distortion. No suspiciouscalcification. There has been no significant change from prior exam(s). BREAST DENSITY: B - There are scattered areas of fibroglandular density. IMPRESSION: Benign. BI-RADS CATEGORY: 1 - NEGATIVE RECOMMENDATION: Screening bilateral mammogram is recommended in 1 year. Mammo Location: [facility], [address] [place] [address], [id number], . 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
== END 2025-09-04 15:40 | disposition home or self-care (01) ==
LOC: HO.PMC 15:15
PROVIDERS: PCP Physician Assistant; Visit Provider Nurse Practitioner Family
DX: M47.817 Spondylosis without myelopathy or radiculopathy, lumbosacral region (principal); M51.369 Other intervertebral disc degeneration, lumbar region without mention of lumbar back pain or lower extremity pain; M54.16 Radiculopathy, lumbar region; M25.551 Pain in right hip; M53.3 Sacrococcygeal disorders, not elsewhere classified; M16.0 Bilateral primary osteoarthritis of hip; M46.1 Sacroiliitis, not elsewhere classified
CPT/HCPCS: 99214; G2211

== ENCOUNTER → 2025-09-04 15:14 | Outpatient (BNVA) | payer MEDICARE, MEDICAID, SELFPAY | PROVIDERS: PCP Physician Assistant; Visit Provider Nurse Practitioner Family | DX: M47.817 Spondylosis without myelopathy or radiculopathy, lumbosacral region (principal); M54.16 Radiculopathy, lumbar region; M51.362 Other intervertebral disc degeneration, lumbar region with discogenic back pain and lower extremity pain; M25.551 Pain in right hip; M53.3 Sacrococcygeal disorders, not elsewhere classified; M16.0 Bilateral primary osteoarthritis of hip; M46.1 Sacroiliitis, not elsewhere classified | CPT/HCPCS: 99212 ==